=== PATIENT | female | born 1945 | race Caucasian/White ===

== ENCOUNTER 2019-07-02 07:39 | Outpatient (CLI) | payer MEDICARE, OTHER, SELFPAY ==
--- NOTE | ~2019-07-02 | DEXA_ITS ---
Bone Density Report Name: Blake Hawkins Age: 73 Sex: Female Ethnicity: White Date of : 1945 Indication: osteopenia; monitoring treatment; height loss; hysterectomy; Referring Provider: An Regan Study: Bone densitometry was performed. Exam Date: July 02, 2019 Accession number: [id number] Bone Density: Region BMD T-score Z-score Classification AP Spine (L1-L4) 0.773 -2.5 -0.1 Osteoporosis Femoral Neck (Left) 0.680 -1.5 0.5 Osteopenia Total Hip (Left) 0.802 -1.1 0.6 Osteopenia Total Hip Bilateral Avg 0.804 -1.1 0.7 Osteopenia Femoral Neck (Right) 0.668 -1.6 0.4 Osteopenia Total Hip (Right) 0.806 -1.1 0.7 Osteopenia World Health Organization criteria for BMD impression classify patients as: Normal (T-score at or above -1.0), Osteopenia (T-score between -1.0 and -2.5), or Osteoporosis (T-score at or below -2.5). 10-year Fracture Risk: FRAX not reported because: Some T-score for Spine Total or Hip Total or Femoral Neck at or below -2.5 Treated for osteoporosis Previous Exams: Region Exam Age BMD T-score BMD Change BMD Change Date g/cm2 vs Baseline vs Previous AP Spine(L1-L4) 07/02/2019 73 0.773 -2.5 -0.063(-7.5%)# -0.031(-3.8%)* 06/26/2017 71 0.803 -2.2 -0.032(-3.9%)# -0.033(-3.9%)* 06/20/2015 69 0.836 -1.9 0.000(0.0%)# -0.012(-1.4%)# 06/15/2013 67 0.848 -1.8 0.012(1.5%) 0.012(1.5%) 05/17/2011 65 0.836 -1.9 Total Hip(Left) 07/02/2019 73 0.802 -1.1 -0.066(-7.6%)# -0.011(-1.3%) 06/26/2017 71 0.813 -1.1 -0.055(-6.3%)# 0.038(4.9%)* 06/20/2015 69 0.775 -1.4 -0.093(-10.7%) -0.057(-6.8%)# 06/15/2013 67 0.832 -0.9 -0.036(-4.2%)* -0.036(-4.2%)* 05/17/2011 65 0.868 -0.6 Total Hip(Right) 07/02/2019 73 0.806 -1.1 -0.067(-7.6%)# 0.005(0.6%) 06/26/2017 71 0.801 -1.2 -0.072(-8.2%)# 0.008(1.0%) 06/20/2015 69 0.793 -1.2 -0.080(-9.1%)# -0.029(-3.5%)# 06/15/2013 67 0.822 -1.0 -0.051(-5.9%)* -0.051(-5.9%)* 05/17/2011 65 0.873 -0.6 *Denotes significance at 95% confidence level, LSC for AP Spine = 0.022 g/cm2, LSC for Total Hip = 0.027 g/cm2 Clinical Information Provided by Patient: Is being treated for osteoporosis Has used the following medications: Fosamax (i.e. alendronate), Vitamin D Has the following medical conditions: Hysterectomy Patient maximum height was 63 Menopause Age: 30 Onset of menses at age 12 Number of children 1 Missed period for more than 6 months in a row
--- NOTE | ~2019-07-02 | MM_ITS ---
EXAMINATION: MM screening ambrose BI w gallo HISTORY: Screening mammogram TECHNIQUE: Craniocaudal and mediolateral oblique 3-D tomosynthesis images were obtained and synthetic 2-D images were generated. CAD analysis was submitted and interpreted. COMPARISON: 07/01/2018, 06/26/2017, 06/22/2016 bilateral digital screening mammogram examinations BREAST PARENCHYMAL COMPOSITION: There are scattered areas of fibroglandular density. FINDINGS: There are scattered bilateral benign calcifications. There is no evidence of suspicious mas s, calcification, or architectural distortion to suggest malignancy in either breast. There has been no suspicious interval change. IMPRESSION: 1. No mammographic evidence of malignancy. 2. Recommend routine screening mammography in one year. BI-RADS Category 2: Benign finding(s). Reviewed, dictated and finalized at location A. [employer]
== END 2019-07-02 07:40 | disposition home or self-care (01) ==
LOC: ANHIMG 07:45
PROVIDERS: PCP Family Medicine; Visit Provider Family Medicine
DX: Z12.31 Encounter for screening mammogram for malignant neoplasm of breast (principal); Z78.0 Asymptomatic menopausal state; M85.89 Other specified disorders of bone density and structure, multiple sites; M81.0 Age-related osteoporosis without current pathological fracture
CPT/HCPCS: 77063; 77067; 77080

== ENCOUNTER 2021-01-16 12:35 | Outpatient (CLI) | payer MEDICARE, OTHER, SELFPAY ==
--- NOTE | ~2021-01-16 | DEXA_ITS ---
Bone Density Report Name: Blake Hawkins Age: 75 Sex: Female Ethnicity: White Date of : 1945 Indication: postmenopausal osteoporosis; monitoring treatment; height loss; hysterectomy; Referring Provider: Trixie Lindsey Study: Bone densitometry was performed. Exam Date: January 16, 2021 Accession number: [id number] Bone Density: Region BMD T-score Z-score Classification AP Spine (L1-L4) 0.829 -2.0 0.5 Osteopenia Femoral Neck (Left) 0.648 -1.8 0.3 Osteopenia Total Hip (Left) 0.788 -1.3 0.6 Osteopenia Total Hip Bilateral Avg 0.784 -1.3 0.6 Osteopenia Femoral Neck (Right) 0.645 -1.8 0.3 Osteopenia Total Hip (Right) 0.779 -1.3 0.5 Osteopenia World Health Organization criteria for BMD impression classify patients as: Normal (T-score at or above -1.0), Osteopenia (T-score between -1.0 and -2.5), or Osteoporosis (T-score at or below -2.5). 10-year Fracture Risk: FRAX not reported because: Treated for osteoporosis Previous Exams: Region Exam Age BMD T-score BMD Change BMD Change Date g/cm2 vs Baseline vs Previous AP Spine(L1-L4) 01/16/2021 75 0.829 -2.0 -0.006(-0.8%)# 0.057(7.3%)* 07/02/2019 73 0.773 -2.5 -0.063(-7.5%)# -0.031(-3.8%)* 06/26/2017 71 0.803 -2.2 -0.032(-3.9%)# -0.033(-3.9%)* 06/20/2015 69 0.836 -1.9 0.000(0.0%)# -0.012(-1.4%)# 06/15/2013 67 0.848 -1.8 0.012(1.5%) 0.012(1.5%) 05/17/2011 65 0.836 -1.9 Total Hip(Left) 01/16/2021 75 0.788 -1.3 -0.081(-9.3%)# -0.015(-1.9%) 07/02/2019 73 0.802 -1.1 -0.066(-7.6%)# -0.011(-1.3%) 06/26/2017 71 0.813 -1.1 -0.055(-6.3%)# 0.038(4.9%)* 06/20/2015 69 0.775 -1.4 -0.093(-10.7%) -0.057(-6.8%)# 06/15/2013 67 0.832 -0.9 -0.036(-4.2%)* -0.036(-4.2%)* 05/17/2011 65 0.868 -0.6 Total Hip(Right) 01/16/2021 75 0.779 -1.3 -0.094(-10.8%) -0.027(-3.4%)* 07/02/2019 73 0.806 -1.1 -0.067(-7.6%)# 0.005(0.6%) 06/26/2017 71 0.801 -1.2 -0.072(-8.2%)# 0.008(1.0%) 06/20/2015 69 0.793 -1.2 -0.080(-9.1%)# -0.029(-3.5%)# 06/15/2013 67 0.822 -1.0 -0.051(-5.9%)* -0.051(-5.9%)* 05/17/2011 65 0.873 -0.6 *Denotes significance at 95% confidence level, LSC for AP Spine = 0.022 g/cm2, LSC for Total Hip = 0.027 g/cm2 Clinical Information Provided by Patient: Is being treated for osteoporosis Has used the following medications: Fosamax (i.e. alendronate), Calcium Has the following medical conditions: Hysterectomy Patient maximum height was 64 Menopause Age: 30
== END 2021-01-16 12:36 | disposition home or self-care (01) ==
PROVIDERS: PCP Physician Assistant; Visit Provider Internal Medicine Endocrinology, Diabetes & Metabolism
DX: M81.0 Age-related osteoporosis without current pathological fracture (principal); M85.89 Other specified disorders of bone density and structure, multiple sites
CPT/HCPCS: 77080

== ENCOUNTER 2022-01-30 10:08 | Observation (INO) | payer MEDICARE, OTHER, SELFPAY ==
[2022-01-30] VITALS (9 sets, daily range): BP systolic 114–151; BP diastolic 53–93; PULSE 72–101; RESP 12–18; TEMP 36.4–37.1; O2SAT 95–100; BMI 24.0
--- NOTE | ~2022-01-30 | US_ITS ---
EXAMINATION: US carotid duplex BI DATE: 01/31/2022 08:48 INDICATION: Syncopal episode TECHNIQUE: Grayscale, color Doppler, and pulsed Doppler images of the cervical carotid arteries were obtained. The degree of vessel stenosis is placed in one of the following categories: normal, <50%, 5 0-69%, >=70% but less than near-occlusion, near-occlusion, or total occlusion. Note that percent sten osis relative to normal distal artery lumen diameter is indirectly measured from velocity measurement s as described by Daniel, et al. Radiology 2003; 229:340-346. COMPARISON: None. FINDINGS: RIGHT: The right common carotid artery (CCA) peak systolic velocity (PSV) is 82 cm/s. The right internal car otid artery (ICA) PSV is 68 cm/s. The right ICA end-diastolic velocity (EDV) is 16 cm/s. The right IC A/CCA PSV ratio is 0.8. Grayscale and color Doppler images yield an estimate of <50% diameter reducti on from plaque in the ICA. The external carotid artery (ECA) PSV is 76 cm/s. There is antegrade flow in the right vertebral artery. LEFT: The left CCA PSV is 83 cm/s. The left ICA PSV is 67 cm/s. The left ICA EDV is 17 cm/s. The left ICA/C CA PSV ratio is 0.8. Grayscale and color Doppler images yield an estimate of <50% diameter reduction from plaque in the ICA. The ECA PSV is 63 cm/s. There is antegrade flow in the left vertebral artery. IMPRESSION: 1. <50% stenosis in the right internal carotid artery. 2. <50% stenosis in the left internal carotid artery. Reviewed, dictated and finalized at location A.
--- NOTE | ~2022-01-30 | CT_ITS ---
EXAMINATION: CT brain wo con DATE: 01/30/2022 13:21 INDICATION: Syncope. Head injury. TECHNIQUE: Computed tomography (CT) of the head was performed without intravenous contrast. The mA wa s adjusted according to patient size. Iterative reconstruction technique was employed. The dose-lengt h product was 681.00 mGy-cm. COMPARISON: None FINDINGS: There is no intracranial hemorrhage, acute infarction, or abnormal intracranial mass lesion . The ventricles are normal in size. The orbits are normal. There is mild mucosal thickening in the p aranasal sinuses. There is a small left mastoid effusion. IMPRESSION: 1. Normal brain. Reviewed, dictated and finalized at location A. IMPRESSION: 1. Normal brain.
--- NOTE | ~2022-01-30 | XR_ITS ---
EXAMINATION: XR chest 2V DATE: 01/30/2022 12:59 INDICATION: Multiple syncopal episodes over the past 3 days TECHNIQUE: frontal and lateral views of the chest were obtained. COMPARISON: None FINDINGS: The lungs are clear with no focal airspace opacities, pulmonary edema, pleural effusion or pneumothor ax. Heart size is normal. Moderate thoracic kyphosis with moderate spondylosis. IMPRESSION: 1. No acute cardiopulmonary disease. Reviewed, dictated and finalized at location A.
--- NOTE | 2022-01-30 10:15 | ECG_ITS ---
Measurements Intervals [place] Rate: 77 P: 22 OH: 156 QRS: -18 QRSD: 86 T: 16 QT: 348 QTc: 394 Interpretive Statements SINUS RHYTHM WITH SINUS ARRHYTHMIA BORDERLINE R WAVE PROGRESSION, ANTERIOR LEADS INFERIOR INFARCT, AGE INDETERMINATE ABNORMAL ECG NO PREVIOUS ECG AVAILABLE FOR COMPARISON Electronically Signed On 01-30-2022 12:06:03 CDT by Jesse Wooten D.O.
[2022-01-30 10:33] LABS: Basophils Percent Auto 0.3 % (0.2-1.2); Eosinophils Absolute Auto 0.1 K/mm3 (0-0.3); Eosinophils Percent Auto 0.7 % (0-4.4); Hematocrit 38.3 % (37.0-47.0); Hemoglobin 12.7 g/dL (12.0-15.0); Immature Granulocyte Absolute 0.03 K/mm3 (0.00-0.031); Immature Granulocyte Percent A 0.4 % (0-0.5); Lymphocytes Absolute Auto 1.45 K/mm3 (0.9-3.2); Lymphocytes Percent Auto 20.5 % (18.3-44.2); Mean Corpuscular HGB Conc 33.2 g/dl (32-36); Mean Corpuscular Hemoglobin 33.2 pg (26-34); Mean Platelet Volume 9.7 fl (7.4-10.4); Monocytes Absolute Auto 0.4 K/mm3 (0.1-0.6); Monocytes Percent Auto 5.7 % (2.6-8.5); Neutrophils Absolute Auto 5.1 K/mm3 (1.3-6.7); Neutrophils Percent Auto 72.4 % (45.5-73.1); Platelet Count Result 147 k/mm3 (150-375); Red Blood Count 3.83 M/mm3 (4.2-5.4); Red Cell Distribution Width 11.9 % (11.5-14.5); White Blood Count 7.1 K/mm3 (4.5-10.0)
[2022-01-30 10:40] LABS: Alanine Aminotransferase 19 U/L (6-35); Albumin Level 4.5 g/dL (3.5-5.1); Alkaline Phosphatase 44 U/L (38-126); Anion Gap 15 mmol/L (8-16); Aspartate Amino Transferase 25 U/L (14-36); Bilirubin,Total 0.6 mg/dL (0.2-1.3); Blood Urea Nitrogen 19 mg/dL (7-17); Calcium 9.4 mg/dL (8.4-10.2); Carbon Dioxide 25 mmol/L (22-30); Chloride 96 mmol/L (98-107); Estimated CRCL calculation 38 ml/min; Estimated Glomerular Filt Rate > 60; Glucose 251 mg/dL (65-110); Potassium 3.6 mmol/L (3.4-5.0); Sodium 136 mmol/L (137-145)
--- NOTE | 2022-01-30 12:06 | ED.SYNCOPE ---
HPI - Syncope General Chief Complaint: Syncope Stated Complaint: dizziness Time Seen by Provider: 01/30/22 12:03 Source: patient and family Mode of arrival: ambulatory Limitations: no limitations History of Present Illness HPI narrative: Patient is a 76-year-old female with a history of hypertension, diabetes, presenting to the emergency department for evaluation of recurrent syncopal events. Patient had a first syncopal event on Saturday while she was eating dinner and lost consciousness while sitting down. No urinary incontinence or seizure-like activity. Patient was mildly confused at first when she awakened but no prolonged confused state. No focal deficits noted by who witnessed the event. Patient then had 2 syncopal events on Saturday, 1 while she was standing near a washing machine, the other while she was standing near a dresser and the caught her and was able to keep her upright and keep her from hitting her head. Again events were similar to Sundays with brief loss of consciousness without urinary incontinence or tonic-clonic activity. Today, patient had 2 syncopal events 1 again at breakfast and patient's wanted to have her evaluated. She currently feels fine. She denies prodromal symptoms such as headache, chest pain, lightheadedness, dizziness, palpitations prior to the event. She denies focal weakness or numbness. She denies pain of any sort. She denies cardiac history, recent illness or medication changes. Patient denies coagulopathy history, recent long car or air travel or recent known history of COVID. She denies unilateral leg swelling, calf pain or redness. Related Data Home Medications Medication Instructions Recorded Confirmed multivit with 1 tablet PO DAILY 05/21/19 11/13/21 [id number]-lutein 8 mg iron-400 mcg-300 mcg tablet (Ultimate Women's Complete 50+) biotin 10,000 mcg capsule mcg PO 10/20/19 11/13/21 cinnamon bark 500 mg capsule 1,000 mg PO DAILY 10/20/19 11/13/21 cholecalciferol (vitamin D3) 25 25 mcg PO DAILY 04/21/20 11/13/21 mcg (1,000 unit) capsule potassium gluconate 595 mg (99 mg) 595 mg PO DAILY 05/25/20 11/13/21 tablet omega 3,6,9 combination no.7 92 mg mg PO 11/13/21 11/13/21 (43 mg-22 [id number]) chew tablet Allergies Allergy/AdvReac Type Severity Reaction Status Date / Time codeine Allergy Severe Vomiting Verified 11/13/21 10:23 Rsjaspu-WFQ-VqS Reductase AdvReac Mild Muscle Pain Verified 11/13/21 10:23 Inhibitor [Hkixunk-Cgy-Zqm Reductase Inhibitor] Review of Systems Review of Systems: CONSTITUTIONAL: Denies fever, chills, or sweats. EYES: Denies visual changes, redness, or discharge. ENT: Denies rhinorrhea, congestion, sore throat, or otalgia. CARDIOVASCULAR: Denies chest pain, palpitations, or edema. RESPIRATORY: Denies cough or dyspnea. GASTROINTESTINAL: Denies abdominal pain, nausea, vomiting, or diarrhea. GENITOURINARY: Denies dysuria or hematuria. SKIN: Denies rash or itching. MUSCULOSKELETAL: Denies back pain, joint pain, or myalgia. NEUROLOGIC: Denies headache, numbness, or weakness. [facility] Past Medical History Medical History Back pain Hyperlipidemia LDL goal <100 Osteoarthritis Osteopenia after menopause Type 2 diabetes mellitus Surgical History Surgical History History of hysterectomy History of tonsillectomy and adenoidectomy [place] teeth removed Family History Family History Father Diabetes mellitus Hypertension Family history of cardiovascular disease Mother Family history of Alzheimer's disease Other Osteoporosis Social History Social History Smoking status: Never smoker Second hand tobacco smoke exposure: No Alcohol intake: never Substanc
[2022-01-30 12:52] LABS: Troponin I < 0.012 ng/mL (0.000-0.034)
[2022-01-30 12:56] LABS: Appearance Urine Clear (Clear); Bilirubin Urine Negative (Negative); Blood Urine Negative (Negative); Color Urine Yellow (Yellow); Glucose Urine UA Negative (Negative); Ketones Urine Negative (Negative); Leukocyte Esterase Ur 2+ LEU/UL (Negative); Nitrate Urine Negative (Negative); Protein Urine Negative (Negative); Urobilinogen Urine 0.2 mg/dL (<2.0); pH Urine 5.5 (5.0-9.0)
[2022-01-30 13:08] LABS: Mucus Urine Rare /lpf; RBC Urine 0-2 /hpf (0-2); Squamous Epithelial Cell Urine Occasional /hpf (Few)
[2022-01-30 13:09] LABS: Add Urine Microscopic? YES
[2022-01-30 13:34] LABS: SARS-CoV-2 RNA PCR Negative
--- NOTE | 2022-01-30 15:41 | ADMGEN ---
This patient, Blake Hawkins, was admitted to Medical Room 258-01. Patient/family oriented to hospital policies and general routines including ID bracelet, bed and alarms, visiting hours, pain management, procedures, bathroom and other care routines, personal items, smoking policy, room service/diet, and visiting hours. Information on how to activate the Rapid Response Team has been discussed. Patient/Family are encouraged to report perceived risks to care and to ask questions if they do not understand what they are told or what they should do.
--- NOTE | 2022-01-30 19:23 | PM.IMHP ---
H&P: HPI History of Present Illness Date/Time: 01/30/22 19:23 Chief Complaint: Syncopal episode Narrative: This is a 76-year-old female patient who has a history of hypertension and diabetes. The patient came to the emergency room to be evaluated for reoccurring syncopal events. The patient had her initial syncopal event on Saturday. She was sitting up eating dinner lost consciousness while sitting in the chair. She had no urinary incontinence or seizure-like activity. The patient was mildly confused at and when she regained consciousness she had no prolonged confusion state. She was only out for matter of seconds. The patient stated that she had 2 syncopal events on Saturday 1 while standing near a washing machine and the other 1 while she was standing near dresser. Her caught her both times and kept her up right so that she would not hit her head. She denies any dizziness fever chills no chest pain no palpitation. She has had no prior history of having any syncopal episodes prior to Saturday. She has had no recent travel or any recent history of COVID. She denies any swelling in her legs. Head CT was read as a normal brain. It chest x-ray was read as no acute cardiopulmonary disease. EKG was read as sinus rhythm with sinus arrhythmia. Sodium was only slightly low at 136. She is negative for COVID. Glucose 251 patient is being admitted to observation status on the date of service of 01/30/2022. Review of Systems Review of Systems: See HPI All systems reviewed & are unremarkable except as noted in HPI and below Constitutional: Constitutional: Reports as per HPI and Reports no additional constitutional complaints Eyes: Eyes: Reports as per HPI and Reports no additional eye complaints ENT: Reports system reviewed and no additional complaints, except as documented and Reports Normal hearing present Cardiovascular: Cardiovascular: Reports no additional cardiovascular complaints Respiratory: Respiratory: Reports no additional respiratory complaints and Reports no additional respiratory complaints Gastrointestinal: Gastrointestinal: Reports as per HPI and Reports no additional gastrointestinal complaints Musculoskeletal: Musculoskeletal: Reports no additional musculoskeletal complaints Integumentary/Breasts: Skin/Breast: Reports system reviewed and no additional complaints, except as docu and Reports as per HPI Neurologic: Reports system reviewed and no additional complaints, except as documented, Reports as per HPI and Reports Normal hearing present Psychiatric: Psychiatric: Reports no additional psychiatric complaints and Reports as per HPI Endocrine: Endocrine: Reports no additional endocrine complaints Hematologic/Lymphatic: Hematologic/Lymphatic: Reports no additional hematologic/lymphatic complaints Allergic/Immunologic: Allergic/Immunologic: Reports no additional allergic/immunologic complaints [facility] Past Medical History Medical History Back pain Hyperlipidemia LDL goal <100 Osteoarthritis Osteopenia after menopause Type 2 diabetes mellitus Surgical History Surgical History History of hysterectomy History of tonsillectomy and adenoidectomy [place] teeth removed Family History Family History Father Diabetes mellitus Hypertension Family history of cardiovascular disease Mother Family history of Alzheimer's disease Other Osteoporosis Social History Social History (Updated 01/30/22 @ 19:42 by Dania Cleveland NP) Social History: The patient is and lives with her of 55 years. She has 1 biological child and she has 1 adopted. He is retired from [employer] which she had her 1st child. She is lifelong nonsmoker. She does not use any alcohol marijuana or illicit drugs. Her is the durable Joota
[2022-01-30] MEDS: EZETIMIBE 10 MG TABLET PO (20:43)
[2022-01-30 20:53] LABS: Glucose Point of Care 175 mg/dl (65-105)
[2022-01-31] VITALS (13 sets, daily range): BP systolic 108–127; BP diastolic 47–65; PULSE 70–93; RESP 16–20; TEMP 36.7–37.3; O2SAT 98–99
--- NOTE | 2022-01-31 | ECHO_ITS ---
Patient Info Name: Blake Hawkins Age: 76 years : 1945 Gender: Female Ht: 63 in Wt: 135 lbs BSA: 1.66 m2 HR: 84 bpm BP: 160 / 107 mmHg Heart Rhythm: Sinus Rhythm Exam Date: 01/31/2022 2:06 PM Exam Location: [facility] Patient Status: Outpatient Admit Date: 01/30/2022 Staff Ordering Physician: Dania Cleveland NP C D Area Supervisor: Marco A Beck RDCS, RT Attending Provider: Michaela Aviles PA-C Referring Physician: Megha MACIAS; Exam Type: CA echo doppler color flow Study Info Indications R55 - Syncope and collapse Complete two-dimensional, color flow and Doppler transthoracic echocardiogram is performed. Strain analysis performed. Summary 1. Complete two-dimensional, color flow and Doppler transthoracic echocardiogram is performed. 2. Left ventricular chamber dimension is normal. 3. Left ventricular systolic function is normal, estimated at >70%. 4. There is mildly increased left ventricular wall thickness. 5. The left ventricular diastolic function is grade I diastolic dysfunction. 6. Global longitudinal strain is normal at -22 %. 7. There is no mitral valve regurgitation. Left Ventricle Left ventricular chamber dimension is normal. Left ventricular systolic function is normal, estimated at >70%. There is mildly increased left ventricular wall thickness. The left ventricular diastolic function is grade I diastolic dysfunction. Global longitudinal strain is normal at -22 %. Right Ventricle Right ventricular chamber dimension is normal. Right ventricular systolic function is normal. Left Atria Left atrial chamber dimension is normal. Right Atria Right atrial chamber dimension is normal. Aortic Valve The aortic valve is trileaflet. There is no aortic valve stenosis. There is no aortic valve regurgitation. Pulmonic Valve The pulmonic valve is not well visualized. There is trace pulmonic regurgitation. Mitral Valve The mitral valve has normal leaflets. There is no mitral valve regurgitation. Tricuspid Valve The tricuspid valve leaflets are normal. There is trace tricuspid valve regurgitation. Unable to estimate PA systolic pressure due to poor spectral resolution of tricuspid regurgitant jet velocity. Pericardium/Pleural The pericardium appears epicardial fat pad. There is no pericardial effusion. Inferior Vena Cava Normal inferior vena cava with >50% collapse upon inspiration consistent with normal right atrial pressure, 5 mmHg. Aorta The aortic root size at the sinus of Valsalva is normal. Left Ventricular Outflow Tract Name Value Normal LVOT 2D LVOT Diameter 2.0 cm LVOT Doppler LVOT Peak Gradient 4 mmHg LVOT Mean Gradient 2 mmHg LVOT VTI 21 cm LVOT VTI/AV VTI Ratio 0.8 LVOT Stroke Volume 64 ml LVOT CO 5.5 l/min LVOT CI 3.3 l/min/m2 Mitral Valve Name
[2022-01-31 06:04] LABS: Hemoglobin A1C 6.2 % (<5.7)
[2022-01-31 06:06] LABS: Alanine Aminotransferase 18 U/L (6-35); Albumin Level 4.1 g/dL (3.5-5.1); Alkaline Phosphatase 47 U/L (38-126); Anion Gap 11 mmol/L (8-16); Aspartate Amino Transferase 26 U/L (14-36); Bilirubin,Total 0.6 mg/dL (0.2-1.3); Blood Urea Nitrogen 20 mg/dL (7-17); Calcium 9.8 mg/dL (8.4-10.2); Carbon Dioxide 27 mmol/L (22-30); Chloride 103 mmol/L (98-107); Creatine Kinase 96 U/L (30-135); Estimated CRCL calculation 42 ml/min; Estimated Glomerular Filt Rate > 60; Glucose 124 mg/dL (65-110); Potassium 3.4 mmol/L (3.4-5.0); Sodium 141 mmol/L (137-145)
[2022-01-31 07:54] LABS: Glucose Point of Care 147 mg/dl (65-105)
[2022-01-31] MEDS: THERAPEUTIC MULTIVITAMINS/MINERALS TAB (*BKC) 1 TABLET PO (09:04)
[2022-01-31] MEDS: CHOLECALCIFEROL 1,000 UNITS TABLET 1000 UNITS PO (09:04)
[2022-01-31] MEDS: lisinopriL 20 MG TABLET 40 MG PO (09:04)
[2022-01-31] MEDS: hydroCHLOROthiazide 25 MG TABLET PO (09:04)
--- NOTE | 2022-01-31 11:32 | PM.CNCAR ---
Assessment and Plan Assessment and plan (1) Recurrent syncope: Code(s): R55 - Syncope and collapse Status: Acute Assessment and Plan: Highly concerning recurrent unexplained syncope occurring in the seated and standing positions without prodrome very concerning for bradyarrhythmia and/or pause. While her episode seated while eating very suspicion for deglutition syncope is not universal and is not associated with eating particular food as they can recall and occurs in the seated and standing position. Thirty day security monitor discharge will be required and if recurrent episode associated with tachy bradyarrhythmia recommendations follow as appropriate. We did discuss likelihood that bradyarrhythmia contributing but has yet to be documented in this regard. If 30 day monitor is unrevealing without recurrent event implantable loop recorder will be advised. They verbalized understanding and agreed with plan of care. No clear identifiable reversible causes thus far. Her UA revealed 2+ leukocyte esterase but otherwise fairly bland. She is asymptomatic and so therefore unlikely contributing. She has no electrolyte or other significant laboratory abnormalities as a contribution. Obtain 2D echocardiogram to assess for LV function, valve pathology pulmonary pressures with recommendation to follow as appropriate. Avoid AV madelyn blocking agents. Avoid dehydration, rise slowly from seated position. The patient does not drive and I emphasized that she should not do so in any event at this time or engage in specific activities which may result in injury to herself or others. All questions answered to their satisfaction. (2) Primary hypertension: Code(s): I10 - Essential (primary) hypertension Status: Acute Assessment and Plan: Stable, controlled no evidence for orthostatic hypotension thus far. Clinically she is not dehydrated nor provides a history highly suggestive this is contributing factor. Continue current medical therapy although I would discontinue the hydrochlorothiazide component continue lisinopril alone. (3) Type 2 diabetes mellitus: Code(s): E11.9 - Type 2 diabetes mellitus without complications Status: Acute Assessment and Plan: there is no documentation of associated hypoglycemia and in fact blood sugars been rather high association with least 1 or 2 of these episodes. (4) Abnormal ECG: Code(s): R94.31 - Abnormal electrocardiogram [ECG] [EKG] Status: Acute Assessment and Plan: ECG consistent with possible inferior infarction age indeterminate. Patient not relating any anginal symptoms at any point. She has risk factors for CAD due to her age, hypertension diabetes mellitus. Need to exclude bradyarrhythmia prior to to consideration for ischemic evaluation although I do not feel this is warranted at this time. (5) Mixed diabetic hyperlipidemia associated with type 2 diabetes mellitus: Code(s): E11.69 - Type 2 diabetes mellitus with other specified complication; E78.2 - Mixed hyperlipidemia Status: Acute Assessment and Plan: Per primary service. (6) Hypertension associated with type 2 diabetes mellitus: Code(s): E11.59 - Type 2 diabetes mellitus with other circulatory complications; I15.2 - Hypertension secondary to endocrine disorders Status: Acute Assessment and Plan: Per primary service. History of Present Illness History of Present Illness Consult date/time: date of service:01/31/22 11:32 Cardiology consultation at the request of Dania Cleveland of the [facility] service for opinion regarding recurrent syncope. Requesting physician: Dania Cleveland NP Consult reason: Other (recurrent syncope) Reason For Visit: Recurrent Syncope Narrative: Patient is a very pleasant 76-year-old female with a past medical history significant for type 2 diabetes mellitus, hypertension who presents with recurrent s
--- NOTE | 2022-01-31 11:38 | WPDNEURCNPN ---
Assessment and Plan Assessment and plan (1) Recurrent syncope: Code(s): R55 - Syncope and collapse Status: Acute Plan considering recurrent symptomatology, even though could be orthostatic because most of the episodes happened when she was sitting or standing a further evaluation is necessary to rule out the possibility of seizure possibility of the cardiac abnormalities as have been orders Consult date: 01/31/22 Time Seen: 10:00 HPI: Blake Hawkins is a 76 year old female admitted to the hospital through the emergency room for the complaints of dizziness in addition to the ongoing history of 1. Hypertension 2. Diabetes mellitus as per the information available patient was brought to the emergency room for the complaints of recurrent syncopal episodes the 1st episode was on Saturday while she was eating dinner loss consciousness without any urinary incontinence or seizure-like activity but she was mildly confused when she was awakened. No focal deficits were noted by the who witnessed the event patient has had 2 syncopal episodes on Saturday 1 when she was standing near machine the other when she was standing near a dresser and caught her and was able to keep her upright and keep her from hitting her head again events were similar to Sundays with brief loss of consciousness without incontinence of bowel or bladder and without history of tonic clonic activity at the time of admission to the ER she was definitely fine she gave no history of any other associated symptoms such as headache or weakness of 1 side or other side or numbness of 1 side or other side. Her medication at home included the general supplements and she is reportedly allergic to statins she does have ongoing history of osteoarthritis and osteopenia with back pain is never alcohol intake could never a smoker and initial examination in the emergency room was normal with evaluation revealing normal vital signs patient was admitted to the hospital with syncopal episode her routine CBC and routine labs were normal except blood sugar of 251 and sodium of 136, with negative chest x-ray and negative CT scan of the head without any bleed, her Doppler study of the carotid is normal Review of Systems Review of Systems: All systems reviewed & are unremarkable except as noted in HPI and below PMFSH Past Medical History Medical History Back pain Hyperlipidemia LDL goal <100 Osteoarthritis Osteopenia after menopause Type 2 diabetes mellitus Surgical History Surgical History History of hysterectomy History of tonsillectomy and adenoidectomy [place] teeth removed Family History Family History Father Diabetes mellitus Hypertension Family history of cardiovascular disease Mother Family history of Alzheimer's disease Other Osteoporosis Social History Social History Social History: The patient is and lives with her of 55 years. She has 1 biological child and she has 1 adopted. He is retired from [employer] which she had her 1st child. She is lifelong nonsmoker. She does not use any alcohol marijuana or illicit drugs. Her is the durable power energy attorney for healthcare. Code status full code Smoking status: Never smoker Second hand tobacco smoke exposure: No Alcohol intake: never Substance use: never Substance use type: does not use Additional living arrangements comments: ( Michael ) Additional occupation/education comments: retired Gender identity (if verbalized by the patient): Female Spiritual care concerns: No Meds Home Medications and Allergies Home Medications Medication Instructions Recorded Confirmed Type multivit with 1 tablet PO D
[2022-01-31 12:46] LABS: Glucose Point of Care 141 mg/dl (65-105)
--- NOTE | 2022-01-31 15:24 | PM.IMPN ---
Progress Note: A&P Assessment and Plan (1) Syncope and collapse: Code(s): R55 - Syncope and collapse Status: Acute Assessment and Plan: patient with 5 episodes of recent syncope with no prodromal symptoms appreciate cardiology consultation appreciate neurology consultation orthostatics negative thus far. Continue to monitor Q shift head CT with no acute findings carotid Doppler with <50% stenosis of bilateral internal carotid arteries EEG pending echocardiogram pending continue to monitor on telemetry (2) Primary hypertension: Code(s): I10 - Essential (primary) hypertension Status: Acute Assessment and Plan: blood pressures reviewed and have been reasonably controlled. Last BP 119/52 continue lisinopril-HCTZ monitor BP trends (3) Type 2 diabetes mellitus: Code(s): E11.9 - Type 2 diabetes mellitus without complications Status: Acute Assessment and Plan: A1c is 6.2 continue Accu-Cheks, sliding scale insulin, hypoglycemic protocol hold home metformin monitor glucose trends and adjust insulin regimen as needed Subjective Date/time seen: 01/31/22 15:24 Interval history: date of service: 01/31/2022 Blake Hawkins is a pleasant 76-year-old female with a history of type 2 diabetes mellitus, osteoarthritis, hyperlipidemia who is seen in follow-up for recurrent syncope. Patient states these episodes come on without warning. They have occurred both while standing and while sitting. Her has been a witness to each of these episodes and states when it happens her face will turn white and afterwards she is clammy. The patient states she feels very well today, in her usual state of health. She does admit that this morning she had a brief episode of lightheadedness when she sat up quickly. Other than that, she denies dizziness, lightheadedness, weakness, fatigue, shortness breath chest pain, palpitations, nausea, vomiting. Endorses good appetite. Denies urinary symptoms. Denies diarrhea. Review of Systems Review of Systems: All systems reviewed & are unremarkable except as noted in HPI and below Exam Narrative: General: Well-nourished, well-appearing 76-year-old female, sitting up in bed, comfortable, NARD Neuro: awake, alert and oriented x4, speech clear, no focal neuro deficits noted HEENMT: normocephalic, atraumatic, EOMI, sclerae anicteric Respiratory: clear to auscultation bilaterally, nonlabored breathing Cardio: regular rate, regular rhythm with S1-S2 Abdomen: nondistended, normoactive bowel sounds, soft, nontender to palpation Extremities: no edema, erythema, or tenderness to palpation, DP pulses 2+ bilaterally Skin: no rashes or lesions, warm and dry Psych: appropriate mood and affect, judgment and insight intact Objective Data Vital Signs Vital Signs: Vital Signs - 24 hr 01/30/22 15:56 01/30/22 18:11 01/30/22 16:00 Temperature 97.5 F L Pulse Rate 72 80 Respiratory Rate 18 Blood Pressure 151/80 H Pulse Oximetry 100 Oxygen Delivery Room Air 01/30/22 19:55 01/30/22 20:16 01/30/22 20:14 Temperature 98.7 F 98.7 F 98.7 F Pulse Rate 82 82 79 Respiratory Rate 18 18 18 Blood Pressure 121/58 L 121/53 L 121/59 L Pulse Oximetry 95 95 99 Oxygen Delivery 01/30/22 20:14 01/30/22 20:00 01/30/22 20:00 Temperature 98.7 F Pulse Rate 84 101 H Respiratory Rate 18 Blood Pressure 121/55 L Pulse Oximetry 99 Oxygen Delivery Room Air 01/31/22 00:00 01/31/22 04:00 01/31/22 04:35 Temperature 98.0 F Pulse Rate 93 78 71 Respiratory Rate 18 Blood Pressure 111/60 Pulse Oximetry 98 Oxygen Delivery 01/31/22 08:00 01/31/22 09:04 01/31/22 09:56 Temperature Pulse Rate 70 Respiratory Rate Blood Pressure 117/58 L 121/47 L Pulse Oximetry Oxygen Delivery 01/31/22 09:59 01/31/22 10:04 01/31/22 08:00 Temperature Pulse Rate Respirator
[2022-01-31] MEDS: EZETIMIBE 10 MG TABLET PO (17:48)
[2022-01-31 17:58] LABS: Glucose Point of Care 169 mg/dl (65-105)
[2022-01-31 21:06] LABS: Glucose Point of Care 227 mg/dl (65-105)
[2022-02-01] VITALS (10 sets, daily range): BP systolic 99–119; BP diastolic 48–61; PULSE 69–102; RESP 21; TEMP 36.2–36.7; O2SAT 100
[2022-02-01 05:48] LABS: Hematocrit 42.1 % (37.0-47.0); Immature Platelet Fraction Pct 3.2 % (0.9-11.2); Mean Corpuscular HGB Conc 33.3 g/dl (32-36); Mean Corpuscular Hemoglobin 33.3 pg (26-34); Mean Corpuscular Volume 100.2 fl (80-100); Mean Platelet Volume 9.9 fl (7.4-10.4); Platelet Count Result 138 k/mm3 (150-375); White Blood Count 8.7 K/mm3 (4.5-10.0)
[2022-02-01 06:06] LABS: Anion Gap 15 mmol/L (8-16); Blood Urea Nitrogen 25 mg/dL (7-17); Calcium 9.4 mg/dL (8.4-10.2); Carbon Dioxide 27 mmol/L (22-30); Chloride 100 mmol/L (98-107); Estimated CRCL calculation 38 ml/min; Estimated Glomerular Filt Rate > 60; Glucose 130 mg/dL (65-110); Potassium 3.5 mmol/L (3.4-5.0); Sodium 142 mmol/L (137-145)
[2022-02-01] MEDS: THERAPEUTIC MULTIVITAMINS/MINERALS TAB (*BKC) 1 TABLET PO (08:03)
[2022-02-01] MEDS: lisinopriL 20 MG TABLET 40 MG PO (08:03)
[2022-02-01] MEDS: CHOLECALCIFEROL 1,000 UNITS TABLET 1000 UNITS PO (08:03)
[2022-02-01 08:12] LABS: Glucose Point of Care 139 mg/dl (65-105)
--- NOTE | 2022-02-01 09:49 | P.NEURO_ITS ---
Neurology EEG Report General Information Date of Study: 01/31/22 TEST EEG DIAGNOSIS syncopal episode CONDITION OF RECORDING awake drowsy and sleep EEG NUMBER [id number] CLINICAL HISTORY patient reports she has had several episodes of losing consciousness in the last 3 days. No warning signs before and feels fine afterwards. EEG DESCRIPTION basic resting occipital frequency consists of low to medium voltage 8 to 10 hertz per 2nd alpha admixed with low-voltage 15 to 18 hertz per 2nd beta. Low- voltage beta activity seen diffusely admixed with waxing and waning posterior alpha rhythm during drowsiness. Bilateral symmetrical sleep activity seen during brief periods of sleep. Non paroxysmal. Nonfocal. Nonlateralizing. IMPRESSION Normal record
--- NOTE | 2022-02-01 10:56 | PM.PNCARD ---
Progress Note: A&P Assessment and Plan (1) Recurrent syncope: Code(s): R55 - Syncope and collapse <RUT Beard - Last Filed: 02/01/22 11:35> Status: Acute <RUT Beard - Last Filed: 02/01/22 11:35> Assessment and Plan: Highly concerning recurrent unexplained syncope occurring in the seated and standing positions without prodrome very concerning for bradyarrhythmia and/or pause. No bradyarrhythmia and/or pauses noted on telemetry thus far. Thirty day pvc monitor at discharge Echo showed normal LV systolic function, grade I diastolic dysfunction. No valvular abnormalities. Avoid AV mdaelyn blocking agents. Avoid dehydration, rise slowly from seated position. OK for discharge today from a cardiac perspective <RUT Beard - Last Filed: 02/01/22 11:35> (2) Primary hypertension: Code(s): I10 - Essential (primary) hypertension <RUT Beard - Last Filed: 02/01/22 11:35> Status: Acute <RUT Beard - Last Filed: 02/01/22 11:35> Assessment and Plan: Stable, controlled no evidence for orthostatic hypotension thus far. Continue lisinopril <RUT Beard - Last Filed: 02/01/22 11:35> (3) Type 2 diabetes mellitus: Code(s): E11.9 - Type 2 diabetes mellitus without complications <RUT Beard - Last Filed: 02/01/22 11:35> Status: Acute <RUT Beard - Last Filed: 02/01/22 11:35> Assessment and Plan: Per primary service. <RUT Beard - Last Filed: 02/01/22 11:35> (4) Abnormal ECG: Code(s): R94.31 - Abnormal electrocardiogram [ECG] [EKG] <RUT Beard - Last Filed: 02/01/22 11:35> Status: Acute <RUT Beard - Last Filed: 02/01/22 11:35> Assessment and Plan: ECG consistent with possible inferior infarction age indeterminate. Patient not relating any anginal symptoms at any point. She has risk factors for CAD due to her age, hypertension diabetes mellitus. Can pursue ischemia workup as outpatient <RUT Beard - Last Filed: 02/01/22 11:35> (5) Mixed diabetic hyperlipidemia associated with type 2 diabetes mellitus: Code(s): E11.69 - Type 2 diabetes mellitus with other specified complication; E78.2 - Mixed hyperlipidemia <RUT Beard - Last Filed: 02/01/22 11:35> Status: Acute <RUT Beard - Last Filed: 02/01/22 11:35> Assessment and Plan: Per primary service. <RUT Beard - Last Filed: 02/01/22 11:35> (6) Hypertension associated with type 2 diabetes mellitus: Code(s): E11.59 - Type 2 diabetes mellitus with other circulatory complications; I15.2 - Hypertension secondary to endocrine disorders <RUT Beard - Last Filed: 02/01/22 11:35> Status: Acute <RUT Beard - Last Filed: 02/01/22 11:35> Assessment and Plan: Per primary service. <RUT Beard - Last Filed: 02/01/22 11:35> Assessment and Plan: Attending addendum: I agree with the above documentation and plan of care as outlined. <Baldemar Tran MD - Last Filed: 02/01/22 13:06> Subjective Date/time seen: 02/01/22 10:56 Cardiology follow up for syncope. <RUT Beard - Last Filed: 02/01/22 11:35> Interval history: She's feeling well this morning. No further syncope or presyncope. Sinus rhythm on telemetry with no bradycardia or pauses. <RUT Beard - Last Filed: 02/01/22 11:35> Review of Systems Review of Systems: All systems reviewed & are unremarkable except as noted in HPI and below <RUT Beard - Last Filed: 02/01/22 11:35> Constitutional: Constitutional: Reports as per HPI and Reports no additional constitutional complaints <RUT Beard - Last Filed: 02/01/22 11:35> Eyes: Eyes: Reports as per HPI and Reports no additional eye complaints <Latisha Cage A
[2022-02-01 12:29] LABS: Glucose Point of Care 143 mg/dl (65-105)
--- NOTE | 2022-02-01 12:44 | WPDNEUROPN ---
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 by the oxygen furnace operator and is being investigated for the possibility of Evan arrhythmia with to have 30 day telemetry, EEG is Job will be discharged with further cardiological investigations planned Objective Data Vital Signs Vital Signs: Vital Signs - 24 hr 01/31/22 14:20 01/31/22 16:00 01/31/22 19:32 Temperature 36.9 C Pulse Rate 85 88 Respiratory Rate 16 Blood Pressure 119/52 L Pulse Oximetry 99 Oxygen Delivery Room Air 01/31/22 20:00 01/31/22 22:33 02/01/22 00:00 Temperature 37.3 C Pulse Rate 90 85 75 Respiratory Rate 20 Blood Pressure 108/52 L Pulse Oximetry 98 Oxygen Delivery 02/01/22 04:00 02/01/22 06:00 02/01/22 06:05 Temperature 36.2 C L 36.3 C L Pulse Rate 69 69 76 Respiratory Rate 21 H 21 H Blood Pressure 119/48 L 117/51 L Pulse Oximetry 100 100 Oxygen Delivery 02/01/22 06:10 02/01/22 08:00 02/01/22 08:00 Temperature 36.7 C Pulse Rate 85 82 Respiratory Rate 21 H Blood Pressure 108/56 L Pulse Oximetry 100 Oxygen Delivery Room Air 02/01/22 10:15 02/01/22 10:19 02/01/22 10:23 Temperature Pulse Rate 84 85 102 H Respiratory Rate Blood Pressure 110/51 L 114/50 L 99/61 L Pulse Oximetry Oxygen Delivery 02/01/22 12:00 Temperature Pulse Rate 87 Respiratory Rate Blood Pressure Pulse Oximetry Oxygen Delivery Intake/Output Intake/Output: Intake & Output 01/29/22 01/30/22 01/31/22 02/01/22 23:59 23:59 23:59 23:59 Intake Total 400 710 750 Output Total 200 Balance 200 710 750 Meds/Results Medications: Active Medications Generic Name Dose Route Start Last Admin Trade Name Freq PRN Reason Stop Dose Admin Acetaminophen 650 mg 01/30/22 14:11 Acetaminophen 325 Mg Tablet PO Q4H PRN Mild Pain (1-3) or Fever Alendronate Sodium 70 mg 02/03/22 06:30 Alendronate Sodium 70 Mg Tablet PO Sa@0630 PAUL Dextrose 12.5 gm 01/30/22 19:48 Dextrose 50% 25 Gm/50 Ml Syringe IV PUSH PRN PRN Hypoglycemia Protocol Ezetimibe 10 mg 01/30/22 20:00 01/31/22 17:48 Ezetimibe 10 Mg Tablet PO 10 mg QPM PAUL Administration Glucagon 1 mg 01/30/22 19:48 Glucagon For Inj 1 Mg Vial IM PRN PRN Hypoglycemia Protocol Glucose 15 gm 01/30/22 19:48 Glucose Oral Gel 15 Gm Of Glucse In 37.5 Gm Tube PO PRN PRN Hypoglycemia Protocol Dextrose 1,000 mls @ 100 mls/hr 01/30/22 19:48 Dextrose 5% 1,000 Ml IVPB PRN PRN Hypoglycemia Protocol Insulin Aspart 2 - 5 units 01/31/22 08:00 02/01/22 12:21 Insulin Aspart (*Bkc) 100 Units/Ml SUB-Q Not Given TIDWM PAUL Protocol Lisinopril 40 mg 01/31/22 09:00 02/01/22 08:03 Lisinopril 20 Mg Tablet PO 40 mg DAILY PAUL Administration Multivitamins/Calcium 1 tablet 01/31/22 09:00 02/01/22 08:03 Therapeutic Multivitamins/Minerals Tab (*Bkc) PO 1 tablet DAILY PAUL Administration Ondansetron HCl 4 mg 01/30/22 14:11 Ondansetron Inj 4 Mg/2 Ml Vial IV PUSH Q4H PRN Nausea Perflutren Lipid Microsphere 0 ml 01/30/22 19:44 Perflutren Lipid Microspheres 1.5 Ml Vial Diluted To 10 Ml Total Volume IV PUSH 02/01/22 19:44 ONCE PRN adequate visualization Protocol Vitamin D 1,000 units 01/31/22 09:00 02/01/22 08:03 Cholecalciferol 1,000 Units Tablet PO 1,000 units DAILY PAUL Administration Radiology Results: ITS Impressions Chest X-Ray 01/30/22 13:03 IMPRESSION: 1. No acute cardiopulmonary disease. Head CT 01/30/22 13:21 IMPRESSION: 1. Normal brain. Carotid Doppler Study 01/31/22 08:56 IMPRESSION: 1. <50% stenosis in the right internal carotid artery. 2. <50% stenosis in the left internal carot
--- NOTE | 2022-02-01 13:00 | PM.DS ---
DS: Admitting Diagnosis Discharge Date 02/01/22 Admitting Diagnosis Recurrent syncope DS: Discharge Diagnosis Discharge Diagnosis (1) Recurrent syncope: Code(s): R55 - Syncope and collapse Status: Acute Assessment and Plan: patient with 5 episodes of recent syncope with no prodromal symptoms Seen in consultation by Cardiology and Neurology Orthostatic vital signs negative Head CT with no acute findings Carotid Doppler with <50% stenosis of bilateral internal carotid arteries EEG unremarkable Echocardiogram with normal EF, grade 1 diastolic dysfunction, no valvular disease Monitored on telemetry during admission. Discharge with 30 day compliance monitor. Will follow-up with cardiology as an outpatient to review Discussed importance of maintaining adequate hydration, discussed fall precautions, discussed need for rising slowly from seated position. (2) Primary hypertension: Code(s): I10 - Essential (primary) hypertension Status: Acute Assessment and Plan: Blood pressures reviewed during admission and were reasonably controlled on lower end of normal. Lisinopril-HCTZ discontinued Lisinopril resumed as single agent at reduced dose 20 mg daily. (3) Type 2 diabetes mellitus: Code(s): E11.9 - Type 2 diabetes mellitus without complications Status: Acute Assessment and Plan: A1c is 6.2. Blood sugars well controlled. Continue home metformin DS: Summary Hospital Course Hospital Course: Date of admission: 01/30/2022 Date of discharge: 02/01/2022 Blake Hawkins is a pleasant 76-year-old female with a history of type 2 diabetes mellitus, osteoarthritis, hyperlipidemia who presented to the emergency department on 01/30/2022 with complaints of recurrent syncopal episodes. Episodes occurred at various times, some while standing and some while sitting, 1 after eating a meal. On presentation to the ED, her vital signs were stable, she was afebrile, laboratory work unremarkable, troponin negative, CXR with no acute cardiopulmonary disease, and head CT with normal brain. She was admitted to the hospitalist service for further evaluation and management and was seen in consultation by Cardiology and Neurology. Please see above for further details. Workup was benign and she was arranged to have 30 day compliance monitor. Following this, she will follow-up with cardiology. Precautions discussed at length. Patient was feeling back to usual state of health and felt comfortable with plans for return home where she lives with her who can assist as needed. Discussed with both patient and family worrisome signs and symptoms for which to return and she was educated on her medication changes. She was discharged in hemodynamically stable condition on 02/01/2022. Time Spent with Patient Time attestation: Total time spent providing and/or coordinating discharge services: 38 minutes Time spent: Greater than 30 minutes Exam Narrative: General: Well-nourished, well-appearing 76-year-old female, sitting up in bed, comfortable, NARD Neuro: awake, alert and oriented x4, speech clear, no focal neuro deficits noted HEENMT: normocephalic, atraumatic, EOMI, sclerae anicteric Respiratory: clear to auscultation bilaterally, nonlabored breathing Cardio: regular rate, regular rhythm with S1-S2 Abdomen: nondistended, normoactive bowel sounds, soft, nontender to palpation Extremities: no edema, erythema, or tenderness to palpation, DP pulses 2+ bilaterally Skin: no rashes or lesions, warm and dry Psych: appropriate mood and affect, judgment and insight intact DS: Data Data Completed and Pending Labs on day of discharge: Labs from last 24 hours 02/01/22 12:00 POC Capillary Glucose 143 H Imaging Radiologist's impression: ITS Impressions Chest X-Ray 01/30/22 13:03 IMPRESSION: 1. No acute cardiopulmonary disease. Head CT 01/30/22 13:21 BETTE
== END 2022-02-01 14:34 | disposition home or self-care (01) ==
LOC: ANHED 13:10 → ANH2MED 15:08
PROVIDERS: Emergency Medicine; Nurse Practitioner; Admitting Provider Hospitalist; Emergency Provider Emergency Medicine; PCP Family Medicine; Visit Provider Physician Assistant
DX: R55 Syncope and collapse (principal); E11.59 Type 2 diabetes mellitus with other circulatory complications; I15.2 Hypertension secondary to endocrine disorders; E78.2 Mixed hyperlipidemia; M54.9 Dorsalgia, unspecified; R94.31 Abnormal electrocardiogram [ECG] [EKG]; I51.89 Other ill-defined heart diseases; M85.88 Other specified disorders of bone density and structure, other site; M19.90 Unspecified osteoarthritis, unspecified site; Z20.822 Contact with and (suspected) exposure to COVID-19; Z79.84 Long term (current) use of oral hypoglycemic drugs; Z79.899 Other long term (current) drug therapy; Z83.3 Family history of diabetes mellitus; Z84.89 Family history of other specified conditions; Z82.3 Family history of stroke; Z82.49 Family history of ischemic heart disease and other diseases of the circulatory system; Z82.62 Family history of osteoporosis
CPT/HCPCS: 36415; 70450; 71046; 80048; 80053; 81001; 82550; 82948; 83036; 83605; 83735; 84443; 84484; 85025; 85027; 85055; 87086; 87088; 93005; 93306; 93880; 95816; 99285; A9270; C9803; G0378; U0003; U0005

== ENCOUNTER 2022-04-06 09:41 | Outpatient (CLI) | payer MEDICARE, OTHER, SELFPAY ==
--- NOTE | ~2022-04-06 | DEXA_ITS ---
Bone Density Report Name: MIRTA CORMIER Age: 76 Sex: Female Ethnicity: White Date of : 1945 Indication: postmenopausal; screening for osteoporosis; height loss; hysterectomy; Referring Provider: RAULITO FRANCE Study: Bone densitometry was performed. Exam Date: April 06, 2022 Accession number: [id number] Bone Density: Region BMD T-score Z-score Classification AP Spine(L1-L4) 0.803 -2.2 0.3 Osteopenia Femoral Neck (Left) 0.674 -1.6 0.6 Osteopenia Total Hip (Left) 0.800 -1.2 0.8 Osteopenia Femoral Neck (Right) 0.642 -1.9 0.3 Osteopenia Total Hip (Right) 0.737 -1.7 0.2 Osteopenia Total Hip Mean 0.768 -1.5 0.5 Osteopenia World Health Organization criteria for BMD impression classify patients as: Normal (T-score at or above -1.0), Osteopenia (T-score between -1.0 and -2.5), or Osteoporosis (T-score at or below -2.5). 10-year Fracture Risk(1): Major Osteoporotic Fracture 14% Hip Fracture 3.6% Reported Risk Factors: [place] (), Neck BMD=0.642, BMI=25.1 (1) FRAX(R) Version 3.08. Fracture probability calculated for an untreated patient. Fracture probability may be lower if the patient has received treatment. Clinical Information Provided by Patient: Has used the following medications: Fosamax (i.e. alendronate), Calcium, Multivitamin Has the following medical conditions: Hysterectomy Patient maximum height was 64 Menopause Age: 30 No regular weight bearing exercise Onset of menses at age 12 Number of children 1 Impression: The patient has low bone mass, based on the Total Spine T-score. The patient has an estimated ten-year risk of hip fracture of 3.6% and an estimated ten-year risk of major fracture of 14%, based on the WHO FRAX algorithm. Discussion: BONE DENSITY IS LOW AT ONE OR MORE SKELETAL SITES. THE PATIENT'S BMD AND CLINICAL RISK FACTORS CONTRIBUTE TO THIS PATIENT'S INCREASED RISK OF FRACTURE. This patient's lowest T-score is low at one or more skeletal sites. It meets the World Health Organization's (WHO) criteria for ?low bone mass? (T-score between -1.0 and -2.5). The patient's 10-year risk of hip fracture as calculated by FRAX exceeds the threshold where pharmacological therapy is recommended by the National Osteoporosis Foundation (NOF). However, all treatment decisions require clinical judgment and consideration of individual patient factors, including patient preferences, comorbidities, previous drug use, risk factors not captured in the FRAX model (e.g., frailty, falls, vitamin D deficiency, increased bone turnover, interval significant decline in bone density) and possible under or overestimation of fracture risk by FRAX. The patient should follow a healthful lifestyle (good nutrition with adequate calcium and vitamin D, and appropriate weigh
== END 2022-04-06 09:42 | disposition home or self-care (01) ==
LOC: ANHIMG 09:43
PROVIDERS: PCP Family Medicine; Visit Provider Internal Medicine Endocrinology, Diabetes & Metabolism
DX: Z78.0 Asymptomatic menopausal state (principal); M85.89 Other specified disorders of bone density and structure, multiple sites
CPT/HCPCS: 77080

== ENCOUNTER 2022-04-23 00:10 | Day surgery (SDC) | payer MEDICARE, OTHER, SELFPAY ==
[2022-04-20 11:03] VITALS: BMI 24.0
[2022-04-23] VITALS (10 sets, daily range): BP systolic 113–130; BP diastolic 56–67; PULSE 68–87; RESP 12–17; TEMP 36.7; O2SAT 100; BMI 25.4
--- NOTE | 2022-04-23 09:37 | WPDHPUPDATE1 ---
History and Physical Update Update Date/Time: 04/23/22 09:37 History and Physical has been reviewed, including an updated exam of the patient. There are NO changes in the patient's condition. Risks, benefits, and alternatives have been discussed and questions answered. Patient agrees to proceed with procedure.
--- NOTE | 2022-04-23 09:37 | WPDMODSED ---
Moderate Sedation Note-Pt Data Patient Data Diagnosis: Recurrent unexplained syncope, atrial fibrillation Present Complaint: none History and physical update: Patient is a very pleasant 76-year-old female with past medical history significant for hypertension, type 2 diabetes mellitus, hypertension, and history of recurrent unexplained syncope and recently diagnosed paroxysmal atrial fibrillation. Patient wore 30 day shelter monitor which did not reveal high-grade AV block or pauses or syncopal episodes but did diagnosis transient atrial fibrillation. She was referred for implantable loop recorder for further clarification with regards etiology and exclusion of bradyarrhythmia as possible contribution to recurrent syncopal episodes and monitoring of atrial fibrillation. Impression: 1. Current unexplained syncope 2. Paroxysmal atrial fibrillation 3. Type 2 diabetes mellitus 4. Hypertension 5. Dementia Plan of care: Implantable loop recorder evaluation of recurrent unexplained syncope and monitoring of atrial fibrillation. All questions answered to patient and her 's satisfaction. Procedure to be performed/Plan: loop recorder implantation Allergies Allergy/AdvReac Type Severity Reaction Status Date / Time codeine Allergy Severe Vomiting Verified 04/23/22 09:18 Lnvtlxi-INT-SeI Reductase AdvReac Mild Muscle Pain Verified 04/23/22 09:18 Inhibitor [Ylfbhjg-Ulq-Uso Reductase Inhibitor] Home Medications Medication Instructions Recorded Confirmed Type multivit with 1 tablet PO DAILY 05/21/19 04/20/22 History agoonpoq-oarf-XY-lutein 8 mg iron-400 mcg-300 mcg tablet (Ultimate Women's Complete 50+) biotin 10,000 mcg capsule 10,000 mcg PO DAILY 10/20/19 04/20/22 History cinnamon bark 500 mg capsule 1,000 mg PO DAILY 10/20/19 04/20/22 History cholecalciferol (vitamin D3) 25 40 mcg PO DAILY 04/21/20 04/20/22 History mcg (1,000 unit) capsule potassium gluconate 595 mg (99 mg) 99 mg PO DAILY 05/25/20 04/20/22 History tablet blood-glucose meter (Accu-Chek #1 ea 05/26/20 04/20/22 Rx Guide Glucose Meter) lancets (Accu-Chek Softclix #100 ea 08/25/21 04/20/22 Rx Lancets) omega 3,6,9 combination no.7 92 mg 1,600 mg PO DAILY 11/13/21 04/20/22 History (43 mg-22 [id number]) chew tablet alendronate 70 mg tablet 70 mg PO WEEKLY 90 days #13 tabs 02/26/22 04/20/22 Rx blood sugar diagnostic (Accu-Chek #100 strips 03/09/22 04/20/22 Rx Guide test strips) ezetimibe 10 mg tablet 10 mg PO QPM #90 tabs 04/13/22 04/20/22 Rx metformin 500 mg tablet,extended 1,500 mg PO QPM #270 tabs 04/13/22 04/20/22 Rx release 24 hr lisinopril 10 mg tablet 5 mg PO DAILY 04/20/22 04/23/22 History Sedation/Anesthesia: No previous sedation/anesthesia problems (including family history). [facility] Past Medical History Medical History Back pain Hyperlipidemia LDL goal <100 Osteoarthritis Osteopenia after menopause Type 2 diabetes mellitus Surgical History Surgical History History of hysterectomy History of tonsillectomy and adenoidectomy [place] teeth removed Family History Family History Father Diabetes mellitus Hypertension Family history of cardiovascular disease Mother Family history of Alzheimer's disease Other Osteoporosis Social History Social History Social History: The patient is and lives with her of 55 years. She has 1 biological child and she has 1 adopted. He is retired from [employer] which she had her 1st child. She is lifelong nonsmoker. She does not use any alcohol marijuana or illicit drugs. Her is the durable power document review attorney for healthcare. Code status full code Smoking status: Never smoke
--- NOTE | 2022-04-23 10:33 | PM.OP ---
Procedure Note - Brief Procedure Note - Brief Date of procedure: 04/23/22 Pre-op diagnosis: Reccurent Syncope, A-Fib Recurrent unexplained syncope, atrial fibrillation Post-op diagnosis: Same Procedure performed: Brief History of Present Illness: Patient is a very pleasant 76-year-old female with a past medical history significant for type 2 diabetes mellitus, hypertension, dyslipidemia, dementia, and recent diagnosis of paroxysmal atrial fibrillation with recurrent unexplained syncope refer for loop recorder implantation. She wore 30 day property assessment monitor which did not reveal high-grade AV block or symptomatic bradycardia nor does she have syncopal episode. However, her reports after returning the monitor she had 2 episodes of syncope. Complications: None Description of procedure: After verbal and written informed consent was obtained from the patient risks, benefits, and alternatives explained in detail the patient agreed to proceed with the plan of care as outlined above. Patient was evaluated at bedside in the [facility] procedure room. Patient was placed the appropriate supine position. Left anterior chest wall was prepped and draped in the usual sterile fashion. Operators in appropriate sterile garb. The left 4th intercostal space was identified and marked. Utilizing approximately 28 cc of 1% subcutaneous lidocaine the left anterior chest wall was then locally anesthetized. After local anesthesia was achieved, 2 fingerbreadths left of the sternum at the 4th intercostal space was again identified and a 1 cm incision was made with the included skin punch tool. Following this with the included introducer, a tract was made subcutaneously at a 45 degree angle from the sternum. The introducer was then inverted 180 degrees and with the included plunger the Medtronic REVEAL LINQ II loop recorder was advanced subcutaneously into position easily and without complication. The plunger was then removed followed by the introducer. Manual pressure was held for least 5-10 min with excellent hemostasis. The device was then interrogated and revealed excellent fidelity and measured at 0.28 mV. The Medtronic REVEAL LINQ II SN [id number] was implanted without complication. The incision was then approximated and closed using Exofin skin adhesive The incision was then covered with a sterile dressing. Implants: Medtronic LINQ II implantable loop recorder Surgeon: Baldemar Tran MD Estimated blood loss (mL): 0 Complications: No immediate complications Condition: Stable Disposition: Same day Findings: Successful implantation of Medtronic Reveal LINQ II Follow up as an outpatient with one week wound check as scheduled.
== END 2022-04-23 11:32 | disposition home or self-care (01) ==
PROVIDERS: PCP Family Medicine; Visit Provider Internal Medicine Cardiovascular Disease
PROC: (CPT 33285; principal; 2022-04-23 10:00)
DX: R55 Syncope and collapse (principal); I48.0 Paroxysmal atrial fibrillation; I10 Essential (primary) hypertension; E78.5 Hyperlipidemia, unspecified; E11.9 Type 2 diabetes mellitus without complications; F03.90 Unspecified dementia, unspecified severity, without behavioral disturbance, psychotic disturbance, mood disturbance, and anxiety; Z79.84 Long term (current) use of oral hypoglycemic drugs
CPT/HCPCS: 33285; C1764

== ENCOUNTER 2022-06-28 02:24 | Day surgery (SDC) | payer MEDICARE, OTHER, SELFPAY ==
[2022-06-27 12:44] VITALS: BMI 24.0
[2022-06-28] VITALS (17 sets, daily range): BP systolic 126–138; BP diastolic 60–77; PULSE 18–94; RESP 18–85; TEMP 36.2–36.9; O2SAT 96–100; BMI 24.6
--- NOTE | ~2022-06-28 | XR_ITS ---
EXAMINATION: XR chest 1V portable INDICATION: Pacemaker insertion TECHNIQUE: Portable AP chest at 1523 hours COMPARISON: 01/30/2022 FINDINGS: A dual-lead cardiac pacemaker of the left chest wall ends with leads in expected locations. No pleural effusion or pneumothorax. The lungs are free of acute opacities. The heart size is normal . IMPRESSION: 1. Pacemaker insertion. No pneumothorax. Reviewed, dictated and finalized at location L. AL CARE SPECIALIST
--- NOTE | ~2022-06-28 | XR_ITS ---
Clinical Indication: Status post pacemaker placement PA and lateral views of the chest: Comparison: 06/28/2022 Findings: The lungs are clear, without evidence of focal consolidation or pleural effusion. Cardiome diastinal silhouette is stable, with pacemaker device in place. Bones and soft tissues are unremarkab le. Impression: Clear lungs. No pneumothorax. Pacemaker in place. Reviewed, dictated and finalized at location M. GENCY MEDICAL TECHNICIAN/DRIVER Impression: Clear lungs. No pneumothorax. Pacemaker in place.
--- NOTE | 2022-06-28 08:49 | PM.IMHP ---
H&P: HPI History of Present Illness Date/Time: 06/28/22 08:49 Chief Complaint: Intermittent complete heart block Narrative: Patient with recurrent syncope status post recorder implant. The loop recorder implant has revealed an episode of complete heart block lasting for 21 seconds associated with syncope. The patient is here for placement of a permanent dual-chamber pacemaker. She also has history of hypertension, diabetes and hyperlipidemia. Echo showed ejection fraction greater than 70%, mild LVH and diastolic dysfunction. EKG in January 2022 showed sinus rhythm with normal intervals, cannot rule out old inferior [place]. She is feeling well today, no fevers or infections, has been NPO. She has had no history of clavicular fracture. Review of Systems Review of Systems: No shortness of breath, chest pain, abdominal pain, fevers, swelling ,. Had episode of syncope last weekend associated with the above-mentioned episode. [facility] Past Medical History Medical History (Updated 06/28/22 @ 11:41 by Kelsie Ulrich MD) Back pain Hyperlipidemia LDL goal <100 Intermittent complete heart block Memory loss Osteoarthritis Osteopenia after menopause Type 2 diabetes mellitus Surgical History Surgical History History of hysterectomy History of tonsillectomy and adenoidectomy [place] teeth removed Family History Family History Father Diabetes mellitus Hypertension Family history of cardiovascular disease Mother Family history of Alzheimer's disease Other Osteoporosis Social History Social History Social History: The patient is and lives with her of 55 years. She has 1 biological child and she has 1 adopted. He is retired from [employer] which she had her 1st child. She is lifelong nonsmoker. She does not use any alcohol marijuana or illicit drugs. Her is the durable power city attorney for healthcare. Code status full code Smoking status: Never smoker Second hand tobacco smoke exposure: No Alcohol intake: never Substance use: never Substance use type: does not use Living arrangements: with family Additional living arrangements comments: ( Michael ) Occupation/Education: retired Additional occupation/education comments: retired Gender identity (if verbalized by the patient): Female Spiritual care concerns: No Meds Home Medications and Allergies Home Medications Medication Instructions Recorded Confirmed Type multivit with 1 tablet PO DAILY 05/21/19 06/27/22 History qhmtfbxr-dtyb-MP-lutein 8 mg iron-400 mcg-300 mcg tablet (Ultimate Women's Complete 50+) biotin 10,000 mcg capsule 10,000 mcg PO DAILY 10/20/19 06/27/22 History cinnamon bark 500 mg capsule 1,000 mg PO DAILY 10/20/19 06/27/22 History cholecalciferol (vitamin D3) 25 40 mcg PO DAILY 04/21/20 06/27/22 History mcg (1,000 unit) capsule potassium gluconate 595 mg (99 mg) 99 mg PO DAILY 05/25/20 06/27/22 History tablet blood-glucose meter (Accu-Chek #1 ea 05/26/20 04/20/22 Rx Guide Glucose Meter) lancets (Accu-Chek Softclix #100 ea 08/25/21 04/20/22 Rx Lancets) omega 3,6,9 combination no.7 92 mg 1,600 mg PO DAILY 11/13/21 06/27/22 History (43 mg-22 [id number]) chew tablet ezetimibe 10 mg tablet 10 mg PO QPM #90 tabs 04/13/22 06/27/22 Rx metformin 500 mg tablet,extended 1,500 mg PO QPM #270 tabs 04/13/22 06/28/22 Rx release 24 hr lisinopril 10 mg tablet 5 mg PO DAILY 04/20/22 06/27/22 History alendronate 70 mg tablet See Rx Instructions .Route 05/15/22 06/27/22 Rx .COMPLEX #12 tabs blood sugar diagnostic (Accu-Chek #100 strips 06/18/22 06/18/22 Rx Guide test strips) vit C 250 mg-vit E 90 mg-zinc 40 1 tablet PO DAILY 06/27/22 06/27/22 History mg-copper 1 [id number]
--- NOTE | 2022-06-28 09:00 | ECG_ITS ---
Measurements Intervals [place] Rate: 72 P: 11 CT: 126 QRS: -19 QRSD: 103 T: 5 QT: 361 QTc: 396 Interpretive Statements SINUS RHYTHM MODERATE VOLTAGE CRITERIA FOR LVH, CONSIDER NORMAL VARIANT [MEETS CRITERIA IN ONE OF: R(aVL), S(V1), R(V5), R(V5/V6)+S(V1)] OLD INFERIOR INFARCT COMPARED TO ECG 01/30/2022 10:21:48 NO SIGNIFICANT CHANGES Electronically Signed On 06-28-2022 15:40:33 PRIZER HAND by Golden Guadalupe M.D.
[2022-06-28 09:31] LABS: Basophils Percent Auto 0.3 % (0.2-1.2); Eosinophils Absolute Auto 0.1 K/mm3 (0-0.3); Eosinophils Percent Auto 0.5 % (0-4.4); Hematocrit 41.9 % (37.0-47.0); Hemoglobin 13.9 g/dL (12.0-15.0); Immature Granulocyte Absolute 0.03 K/mm3 (0.00-0.031); Immature Granulocyte Percent A 0.3 % (0-0.5); Lymphocytes Absolute Auto 2.24 K/mm3 (0.9-3.2); Lymphocytes Percent Auto 24.3 % (18.3-44.2); Mean Corpuscular HGB Conc 33.2 g/dl (32-36); Mean Corpuscular Hemoglobin 32.6 pg (26-34); Mean Corpuscular Volume 98.4 fl (80-100); Mean Platelet Volume 9.4 fl (7.4-10.4); Monocytes Absolute Auto 0.7 K/mm3 (0.1-0.6); Monocytes Percent Auto 7.8 % (2.6-8.5); Neutrophils Absolute Auto 6.1 K/mm3 (1.3-6.7); Neutrophils Percent Auto 66.8 % (45.5-73.1); Platelet Count Result 165 k/mm3 (150-375); Red Blood Count 4.26 M/mm3 (4.2-5.4); Red Cell Distribution Width 12.9 % (11.5-14.5); White Blood Count 9.2 K/mm3 (4.5-10.0)
--- NOTE | 2022-06-28 09:39 | SUR.PREOP ---
Eliu from [employer] here to see pt. Explained procedure and life of device to pt. and .
[2022-06-28 09:40] LABS: INR 1.1; Prothrombin Time 13.4 Seconds (11.1-14.7)
[2022-06-28 09:43] LABS: Anion Gap 8 mmol/L (8-16); Blood Urea Nitrogen 22 mg/dL (7-17); Calcium 9.5 mg/dL (8.4-10.2); Carbon Dioxide 30 mmol/L (22-30); Chloride 100 mmol/L (98-107); Estimated CRCL calculation 38 ml/min; Estimated Glomerular Filt Rate > 60; Glucose 141 mg/dL (65-110); Potassium 3.1 mmol/L (3.4-5.0); Sodium 138 mmol/L (137-145)
--- NOTE | 2022-06-28 11:10 | SUR.PREOP ---
Dr. Ulrich here to see pt. Notified of lab results.
--- NOTE | 2022-06-28 11:44 | WPDMODSED ---
Moderate Sedation Note-Pt Data Patient Data Diagnosis: Recurrent syncope secondary to intermittent complete heart block Present Complaint: Patient with recurrent syncope status post recorder implant.? The loop recorder implant has revealed an episode of complete heart block lasting for 21 seconds associated with syncope.? The patient is here for placement of a permanent dual-chamber pacemaker. ? She also has history of hypertension, diabetes and hyperlipidemia.? She also appears to have some dementia. Echo showed ejection fraction greater than 70%, mild LVH and diastolic dysfunction.? EKG in January 2022 showed sinus rhythm with normal intervals, cannot rule out old inferior [place].? She is feeling well today, no fevers or infections, has been NPO.? She has had no history of clavicular fracture. Procedure to be performed/Plan: Conscious sedation Venogram Placement of a temporary transvenous pacemaker, dual chamber Explant of the loop recorder Allergies Allergy/AdvReac Type Severity Reaction Status Date / Time codeine Allergy Severe Vomiting Verified 06/28/22 09:26 Aktjqus-PVY-ArE Reductase AdvReac Mild Muscle Pain Verified 06/28/22 09:26 Inhibitor [Cguoaov-Ulj-Vqe Reductase Inhibitor] Home Medications Medication Instructions Recorded Confirmed Type multivit with 1 tablet PO DAILY 05/21/19 06/27/22 History mnztwfhh-ucfl-GP-lutein 8 mg iron-400 mcg-300 mcg tablet (Ultimate Women's Complete 50+) biotin 10,000 mcg capsule 10,000 mcg PO DAILY 10/20/19 06/27/22 History cinnamon bark 500 mg capsule 1,000 mg PO DAILY 10/20/19 06/27/22 History cholecalciferol (vitamin D3) 25 40 mcg PO DAILY 04/21/20 06/27/22 History mcg (1,000 unit) capsule potassium gluconate 595 mg (99 mg) 99 mg PO DAILY 05/25/20 06/27/22 History tablet blood-glucose meter (Accu-Chek #1 ea 05/26/20 04/20/22 Rx Guide Glucose Meter) lancets (Accu-Chek Softclix #100 ea 08/25/21 04/20/22 Rx Lancets) omega 3,6,9 combination no.7 92 mg 1,600 mg PO DAILY 11/13/21 06/27/22 History (43 mg-22 [id number]) chew tablet ezetimibe 10 mg tablet 10 mg PO QPM #90 tabs 04/13/22 06/27/22 Rx metformin 500 mg tablet,extended 1,500 mg PO QPM #270 tabs 04/13/22 06/28/22 Rx release 24 hr lisinopril 10 mg tablet 5 mg PO DAILY 04/20/22 06/27/22 History alendronate 70 mg tablet See Rx Instructions .Route 05/15/22 06/27/22 Rx .COMPLEX #12 tabs blood sugar diagnostic (Accu-Chek #100 strips 06/18/22 06/18/22 Rx Guide test strips) vit C 250 mg-vit E 90 mg-zinc 40 1 tablet PO DAILY 06/27/22 06/27/22 History mg-copper 1 mz-zcbcgt-pczujg capsule (PreserVision AREDS-2) Sedation/Anesthesia: No previous sedation/anesthesia problems (including family history). [facility] Past Medical History Medical History Back pain Hyperlipidemia LDL goal <100 Intermittent complete heart block Memory loss Osteoarthritis Osteopenia after menopause Type 2 diabetes mellitus Surgical History Surgical History History of hysterectomy History of tonsillectomy and adenoidectomy [place] teeth removed Family History Family History Father Diabetes mellitus Hypertension Family history of cardiovascular disease Mother Family history of Alzheimer's disease Other Osteoporosis Social History Social History Social History: The patient is and lives with her of 55 years. She has 1 biological child and she has 1 adopted. He is retired from [employer] which she had her 1st child. She is lifelong nonsmoker. She does not use any alcohol marijuana or illicit drugs. Her is the durable power privacy attorney for healthcare. Code status full code Smoking status: Never smoker [facility]
--- NOTE | 2022-06-28 14:29 | ECG_ITS ---
Measurements Intervals [place] Rate: 65 P: 43 [place]: 132 QRS: 81 QRSD: 74 T: 54 QT: 361 QTc: 377 Interpretive Statements SINUS RHYTHM LOW QRS VOLTAGE IN PRECORDIAL LEADS [QRS DEFLECTION < 1.0 mV IN CHEST LEADS] COMPARED TO ECG 06/28/2022 09:37:06 NO SIGNIFICANT CHANGES Electronically Signed On 06-28-2022 15:52:40 WOOD SCIENCE PROFESSOR by Golden Guadalupe M.D.
--- NOTE | 2022-06-28 14:33 | PM.OP ---
Procedure Note - Brief Procedure Note - Brief Date of procedure: 06/28/22 Pre-op diagnosis: sick sinus syndrome Recurrent syncope secondary to complete heart block Procedure performed: conscious sedation Venogram Implantation of a permanent dual-chamber Medtronic pacemaker Explant of the loop recorder Description of procedure: uneventful implant of a dual-chamber pacemaker explant the loop recorder Surgeon: Kelsie Ulrich MD Complications: No immediate complications Condition: Stable Disposition: Floor
--- NOTE | 2022-06-28 14:53 | W.PM.PROC2 ---
Procedure Note - Detailed Date of Procedure 06/28/22 Pre-op Diagnosis sick sinus syndrome Post-op Diagnosis Other (Status post implantation of a permanent dual-chamber pacemaker an explant of a loop recorder) Procedure Performed Conscious sedation Venogram Implantation of a permanent dual-chamber Medtronic pacemaker Explant of the loop recorder Surgeon Kelsie Ulrich MD Anesthesia Local (With conscious sedation) Indications Patient with recurrent syncope status post recorder implant.? The loop recorder implant has revealed an episode of complete heart block lasting for 21 seconds associated with syncope.? The patient is here for placement of a permanent dual-chamber pacemaker. ? She also has history of hypertension, diabetes and hyperlipidemia.? Echo showed ejection fraction greater than 70%, mild LVH and diastolic dysfunction.? EKG in January 2022 showed sinus rhythm with normal intervals, cannot rule out old inferior [place].? She is feeling well today, no fevers or infections, has been NPO.? She has had no history of clavicular fracture. Description of Procedure SITE: Left prepectoral area MEDICATIONS GIVEN IN COMMUNICATIONS CLERK: Ancef 1 gram IV piggyback CONSCIOUS SEDATION: Assessment: The patient has no history of anesthesia problems. The patient's oropharynx is clear. The patient was deemed to be a good candidate for conscious sedation. The patient had continuous hemodynamic monitoring during the procedure. Start time: 12:33 p.m. Completion time: 2:24 p.m. Total conscious sedation time: 111 minutes Medications: Versed 5 mg, fentanyl 125 mcg IV push Trained observer:Lori Obregon RN and Manda Bah RN Outcome: The patient tolerated the procedure well with no complications. PROCEDURE: After informed consent , the patient was brought to the microbiology lab analyst and the left prepectoral area was prepped and draped in usual fashion . The patient received preop antibiotic and conscious sedation . The left prepectoral area was anesthetized with lidocaine . A venogram was performed showing the course of the left subclavian vein,which was patent. Next a skin incision was made and carried down to the prepectoral fascia. Hemostasis was obtained using electrocautery . The pacer pocket was formed. The left subclavian vein was accessed with the micropuncture technique, and a J-tipped guide wire was passed into the inferior vena cava under fluoroscopic guidance. The needle was withdrawn. I was unable to easily puncture the left subclavian vein a 2nd time, so I placed a 7 [place] sheath over the existing wire, and a 2nd wire was passed into the inferior vena cava. The sheath was removed and replaced over 1 wire. The right ventricular lead was passed into the inferior vena cava under fluoroscopic guidance . The lead was then prolapsed through the tricuspid valve and advanced into the right ventricular apex. When suitable sensing and pacing thresholds were obtained, it was screwed into place. No extra cardiac stimulation was obtained using 10 volts. The sheath was withdrawn. Next, another 7 [place] safety sheath was passed over the 2nd wire, the wire withdrawn, and the right atrial lead was passed into the inferior vena cava under fluoroscopic guidance. Right atrial lead was then pulled back to the level of the right atrium and manipulated into the right atrial appendage . When suitable sensing and pacing thresholds were obtained , it was screwed into place . It required repositioning once for poor sensing. No extra cardiac stimulation was obtained using 10 volts. The sheath was withdrawn. Both leads were secured to the prepectoral fascia using 2-0 silk over their respective sleeves. The pocket was cleansed with antibiotic containing solution . The pulse generator was introduced into the operative field, and both leads were secured into the generator . A gentle tug showed the leads were securely fastened. The device was introdu
--- NOTE | 2022-06-28 15:37 | SUR.PHASEII ---
One hour phase 2 recovery complete, see pcs for further documentation
[2022-06-28] MEDS: metFORMIN HCL XR 500 MG TAB.SR.24H 1500 MG PO (18:24)
[2022-06-28] MEDS: POTASSIUM CHLORIDE 20 MEQ PACKET (FOR LIQUID) PO (18:55)
[2022-06-29] VITALS (10 sets, daily range): BP systolic 119–129; BP diastolic 55–63; PULSE 73–94; RESP 16–20; TEMP 36.6–36.9; O2SAT 97–100
[2022-06-29] MEDS: POTASSIUM CHLORIDE 20 MEQ PACKET (FOR LIQUID) PO (09:20)
[2022-06-29] MEDS: lisinopriL 5 MG TABLET PO (09:20)
--- NOTE | 2022-06-29 12:34 | PM.DS ---
DS: Admitting Diagnosis Discharge Date 06/29/2022 Admitting Diagnosis syncope DS: Discharge Diagnosis Discharge Diagnosis (1) Recurrent syncope: Code(s): R55 - Syncope and collapse Status: Acute Assessment and Plan: Secondary to complete heart block now s/p PPM (2) Intermittent complete heart block: Code(s): I44.2 - Atrioventricular block, complete Status: Acute Assessment and Plan: S/p implantation of dual chamber Medtronic pacemaker. Pacemaker checked this morning and functioning normally. Follow up chest Xray with no pneumothorax. OK for discharge home today. (3) Memory loss: Code(s): R41.3 - Other amnesia Status: Acute DS: Summary Hospital Course Hospital Course: Admitted after elective pacemaker placement and loop explant yesterday. Uncomplicated procedure. She was admitted overnight for observation and did not have any issue overnight. Feeling well this morning, follow up chest Xray with no pneumo. Pacemaker check this morning looks good. OK for discharge home today. Time Spent with Patient Time attestation: Total time spent providing and/or coordinating discharge services: Exam Const: General: cooperative, healthy appearing, comfortable and confusion Orientation/consciousness: oriented to person and confusion HENMT: Mouth: Yes moist mucous membranes Neck: Neck: supple Resp: Effort & Inspection: normal respiratory effort Auscultation: clear to auscultation bilaterally Cardio: Rate: regular rate Rhythm: regular rhythm Heart sounds: no murmurs GI: Inspection: normal to inspection Skin: General skin exam: normal color and no rashes or lesions noted Other: L upper chest pacemaker insertion site with sterile dressing in place no hematoma, no shadowing on dressing Neuro: General: oriented to person and confusion Extrem: Right lower extremity: no edema Left lower extremity: no edema Psych: Appearance: grossly normal Mental Status: mental status grossly normal Discharge Plan Discharge Patient Disposition: Home, Self-Care Discharge Instructions: [facility] [address] [place] [address] DISCHARGE INSTRUCTIONS - POST PACEMAKER Activity 1. No driving until you are seen in the office for your incision check. 2. No lifting, pushing or pulling more than 5 pounds with affected arm for 1 MONTH 3. No lifting affected arm above shoulder height for 1 MONTH 4. Wear immobilizer/sling only if you are unable to remember the above activity restrictions. Recommend that it be worn at night. 5. You may shower AFTER you are seen for incision check but no tub baths, swimming pool or hot tub for 1MONTH Wound Care 1. Do not attempt to remove the Aquacel dressing. Leave dressing undisturbed until incision check at the office visit. Keep dressing dry. 2. When you are able to shower AFTER you are seen for your incision check in the office do not rub or scrub the incision. Pat dry after shower. NO lotions, powders, creams or ointments are to be applied to the incision 3. A small amount of tenderness, puffiness and bruising around the site is normal. Call if any significant pain, drainage, swelling, or redness around the site 4. Wear a bra to support the breast tissue and avoid pulling on the incision. Pad the bra strap if necessary with soft smooth cloth. *For any other questions please call the office at [phone]. Office hours are 8AM 4:30PM Saturday
== END 2022-06-29 13:39 | disposition home or self-care (01) ==
LOC: ANHCATHLAB 10:16 → ANHCPC 16:30 → ANH2MED 07-30 12:56
PROVIDERS: PCP Family Medicine; Visit Provider Internal Medicine Cardiovascular Disease
PROC: 0JH606Z Insertion of Pacemaker, Dual Chamber into Chest Subcutaneous Tissue and Fascia, Open Approach (ICD-10-PCS; CPT 33208; principal; 2022-06-28 10:30)
PROC: (CPT 33286; 2022-06-28 10:30)
DX: I44.2 Atrioventricular block, complete (principal); I49.5 Sick sinus syndrome; R55 Syncope and collapse; R41.3 Other amnesia; E78.5 Hyperlipidemia, unspecified; I10 Essential (primary) hypertension; E11.9 Type 2 diabetes mellitus without complications; M85.80 Other specified disorders of bone density and structure, unspecified site; Z79.84 Long term (current) use of oral hypoglycemic drugs
CPT/HCPCS: 33208; 33286; 36415; 71045; 71046; 80048; 85025; 85610; 93005; A9270; C1779; C1785; C1894; J0690; J2250; J3010; J7040

== ENCOUNTER 2022-07-25 10:36 | Outpatient (CLI) | payer MEDICARE, OTHER, SELFPAY ==
--- NOTE | ~2022-07-25 | XR_ITS ---
EXAMINATION: XR chest 2V Exam Date/Time: 07/25/2022 10:52 LEAD RAMP AGENT HISTORY: RECURRENT SYNCOPE;CARDIAC PACEMAKER IN SITU Comparison: 06/29/2022. RESULT: Lines, tubes, and devices: Left chest pacer with intact leads. Lungs and pleura: Senescent change, otherwise clear. Cardiomediastinal silhouette: Stable. Other: No acute osseous or upper abdominal finding. IMPRESSION: No acute cardiopulmonary process. Reviewed, dictated and finalized at location K. RAMP AGENT
== END 2022-07-25 10:37 | disposition home or self-care (01) ==
PROVIDERS: PCP Family Medicine; Visit Provider Internal Medicine Cardiovascular Disease
DX: R55 Syncope and collapse (principal); Z95.0 Presence of cardiac pacemaker; I48.0 Paroxysmal atrial fibrillation; I44.2 Atrioventricular block, complete; T82.110A Breakdown (mechanical) of cardiac electrode, initial encounter
CPT/HCPCS: 71046

== ENCOUNTER 2023-03-20 10:50 | Outpatient (CLI) | payer MEDICARE, OTHER, SELFPAY ==
--- NOTE | ~2023-03-20 | XR_ITS ---
XR chest 2V 03/20/2023 11:18 Indication: Cardiac pacemaker Procedure: PA and lateral views of the chest Comparison: No prior studies for comparison. Findings: Heart size normal. There is scoliosis. Pacemaker leads in expected position. No focal air s pace disease, pulmonary edema, pleural effusion or suspected pneumothorax. Impression: 1: No acute cardiopulmonary disease. Reviewed, dictated and finalized at location B. Impression: 1: No acute cardiopulmonary disease.
== END 2023-03-20 10:51 | disposition home or self-care (01) ==
PROVIDERS: PCP Family Medicine; Visit Provider Internal Medicine Cardiovascular Disease
DX: I44.2 Atrioventricular block, complete (principal); T82.110A Breakdown (mechanical) of cardiac electrode, initial encounter; Z95.0 Presence of cardiac pacemaker
CPT/HCPCS: 71046

== ENCOUNTER 2023-04-10 08:44 | Outpatient (CLI) | payer MEDICARE, OTHER, SELFPAY ==
--- NOTE | ~2023-04-10 | DEXA_ITS ---
Bone Density Report Name: MIRTA CORMIER Age: 77 Sex: Female Ethnicity: White Date of : 1945 Indication: osteopenia; height loss; hysterectomy; postmenopausal Referring Provider: RAULITO FRANCE Study: Bone densitometry was performed. Exam Date: April 10, 2023 Accession number: [id number] Bone Density: Region BMD T-score Z-score Classification AP Spine(L1-L4) 0.831 -2.0 0.6 Osteopenia Femoral Neck (Left) 0.682 -1.5 0.7 Osteopenia Total Hip (Left) 0.730 -1.7 0.2 Osteopenia Femoral Neck (Right) 0.653 -1.8 0.5 Osteopenia Total Hip (Right) 0.716 -1.9 0.1 Osteopenia Total Hip Mean 0.723 -1.8 0.2 Osteopenia World Health Organization criteria for BMD impression classify patients as: Normal (T-score at or above -1.0), Osteopenia (T-score between -1.0 and -2.5), or Osteoporosis (T-score at or below -2.5). 10-year Fracture Risk(1): Major Osteoporotic Fracture 14% Hip Fracture 3.5% Reported Risk Factors: [place] (), Neck BMD=0.653, BMI=25.5 (1) FRAX(R) Version 3.08. Fracture probability calculated for an untreated patient. Fracture probability may be lower if the patient has received treatment. Previous Exams: Region Exam Age BMD T-score BMD Change BMD Change Date g/cm2 vs Baseline vs Previous AP Spine (L1-L4) 04/10/2023 77 0.831 -2.0 -0.017 (-2.1%) 0.028 (3.4%)* 04/06/2022 76 0.803 -2.2 -0.045 (-5.3%) -0.026 (-3.2%) 01/16/2021 75 0.829 -2.0 -0.019 (-2.2%) 0.057 (7.3%)* 07/02/2019 73 0.773 -2.5 -0.075 (-8.9%) -0.031 (-3.8%) 06/26/2017 71 0.803 -2.2 -0.045 (-5.3%) -0.033 (-3.9%) 06/20/2015 69 0.836 -1.9 -0.012 (-1.4%) -0.012 (-1.4%) 06/15/2013 67 0.848 -1.8 Total Hip(Left) 04/10/2023 77 0.730 -1.7 -0.103 (-12.3% -0.071 (-8.8%) 04/06/2022 76 0.800 -1.2 -0.032 (-3.8%) 0.013 (1.6%) 01/16/2021 75 0.788 -1.3 -0.045 (-5.4%) -0.015 (-1.9%) 07/02/2019 73 0.802 -1.1 -0.030 (-3.6%) -0.011 (-1.3%) 06/26/2017 71 0.813 -1.1 -0.019 (-2.3%) 0.038 (4.9%)* 06/20/2015 69 0.775 -1.4 -0.057 (-6.8%) -0.057 (-6.8%) 06/15/2013 67 0.832 -0.9 Total Hip(Right) 04/10/2023 77 0.716 -1.9 -0.105 (-12.8% -0.020 (-2.8%) 04/06/2022 76 0.737 -1.7 -0.085 (-10.3% -0.042 (-5.4%) 01/16/2021 75 0.779 -1.3 -0.043 (-5.2%) -0.027 (-3.4%) 07/02/2019 73 0.806 -1.1 -0.015 (-1.9%) 0.005 (0.6%) 06/26/2017 71 0.801 -1.2 -0.021 (-2.5%) 0.008 (1.0%) 06/20/2015 69 0.793 -1.2 -0.029 (-3.5%) -0.029 (-3.5%) 06/15/2013 67 0.822 -1.0
== END 2023-04-10 08:45 | disposition home or self-care (01) ==
LOC: ANHIMG 08:45
PROVIDERS: PCP Family Medicine; Visit Provider Internal Medicine Endocrinology, Diabetes & Metabolism
DX: M81.0 Age-related osteoporosis without current pathological fracture (principal); M85.88 Other specified disorders of bone density and structure, other site; M85.852 Other specified disorders of bone density and structure, left thigh; M85.851 Other specified disorders of bone density and structure, right thigh
CPT/HCPCS: 77080

== ENCOUNTER 2023-05-30 08:22 | Outpatient (CLI) | payer MEDICARE, OTHER, SELFPAY ==
--- NOTE | 2023-06-04 10:00 | WPDNEUROLOGY ---
Neurology EEG Report General Information Date of Study: 05/30/23 TEST eeg DIAGNOSIS myoclonus CONDITION OF RECORDING awake drowsy and sleep EEG NUMBER [id number] CLINICAL HISTORY patient reported she has uncontrollable tremors throughout her body. It has been happening for a while and is getting worse. Patient was noted to have tremors and eye movement throughout the complete tracing and was unable to relax and kept apologizing for not being able to control the movements. EEG DESCRIPTION Background rhythm consisted of low to medium voltage 5 to 7 hertz per 2nd theta activity admixed with and superimposed by low voltage 15 to 18 hertz per 2nd beta activity bilateral sleep activity was noted during sleep. Photic stimulation produced poor drive. Hyperventilation not done. Non paroxysmal. Nonfocal. Nonlateralizing. IMPRESSION No significant abnormalities noted in this tracing with poor eron posterior gradient and also multiple movement artifacts throughout the tracing.
== END 2023-05-30 08:23 | disposition home or self-care (01) ==
LOC: ANHNEURO 08:23
PROVIDERS: PCP Family Medicine; Visit Provider Student in an Organized Health Care Education/Training Program
DX: G25.3 Myoclonus (principal)
CPT/HCPCS: 95816

== ENCOUNTER 2023-07-02 10:26 | Outpatient (CLI) | payer MEDICARE, OTHER, SELFPAY ==
[2023-07-02 10:45] LABS: Basophils Percent Auto 0.5 % (0.2-1.2); Eosinophils Absolute Auto 0.2 K/mm3 (0-0.3); Eosinophils Percent Auto 2.4 % (0-4.4); Hematocrit 42.3 % (37.0-47.0); Hemoglobin 13.8 g/dL (12.0-15.0); Immature Granulocyte Absolute 0.04 K/mm3 (0.00-0.031); Immature Granulocyte Percent A 0.5 % (0-0.5); Lymphocytes Absolute Auto 2.03 K/mm3 (0.9-3.2); Lymphocytes Percent Auto 24.3 % (18.3-44.2); Mean Corpuscular HGB Conc 32.6 g/dl (32-36); Mean Corpuscular Hemoglobin 32.4 pg (26-34); Mean Corpuscular Volume 99.3 fl (80-100); Mean Platelet Volume 9.5 fl (7.4-10.4); Monocytes Absolute Auto 0.6 K/mm3 (0.1-0.6); Monocytes Percent Auto 7.4 % (2.6-8.5); Neutrophils Absolute Auto 5.4 K/mm3 (1.3-6.7); Neutrophils Percent Auto 64.9 % (45.5-73.1); Platelet Count Result 186 k/mm3 (150-375); Red Blood Count 4.26 M/mm3 (4.2-5.4); White Blood Count 8.4 K/mm3 (4.5-10.0)
[2023-07-02 10:58] LABS: Alanine Aminotransferase 14 U/L (6-35); Albumin Level 3.9 g/dL (3.5-5.1); Alkaline Phosphatase 56 U/L (38-126); Anion Gap 8 mmol/L (8-16); Aspartate Amino Transferase 24 U/L (14-36); Bilirubin,Total 0.7 mg/dL (0.2-1.3); Blood Urea Nitrogen 16 mg/dL (7-17); CRP < 0.5 mg/dL (<1.0); Calcium 9.7 mg/dL (8.4-10.2); Carbon Dioxide 29 mmol/L (22-30); Chloride 101 mmol/L (98-107); Estimated Glomerular Filt Rate > 60; Glucose 119 mg/dL (65-110); Magnesium 2.1 mg/dL (1.6-2.3); Phosphorus 3.6 mg/dL (2.5-4.5); Potassium 3.6 mmol/L (3.4-5.0); Sodium 138 mmol/L (137-145)
[2023-07-02 11:22] LABS: Erythrocyte Sedimentation Rate 12 mm/hr (0-20)
[2023-07-02 11:47] LABS: Thyroid Stimulating Hormone 0.031 uIU/mL (0.465-4.680)
[2023-07-02 12:15] LABS: Rapid Plasma Reagin Non-Reactive (NonReactive)
[2023-07-02 12:26] LABS: Folic Acid > 20.0 ng/mL (2.76->20)
[2023-07-04 15:02] LABS: Lyme Disease Ab (IgM), Blot Negative (Negative); Lyme Disease Ab(IgG), Blot Negative (Negative)
[2023-07-05 07:06] LABS: Ceruloplasmin 24 mg/dL (18-53)
[2023-07-08 02:18] LABS: Angiotensin Converting Enzyme 6 U/L (9-67)
== END 2023-07-02 10:27 | disposition home or self-care (01) ==
PROVIDERS: PCP Family Medicine; Visit Provider Student in an Organized Health Care Education/Training Program
DX: F03.90 Unspecified dementia, unspecified severity, without behavioral disturbance, psychotic disturbance, mood disturbance, and anxiety (principal); G25.3 Myoclonus; I10 Essential (primary) hypertension; Z11.3 Encounter for screening for infections with a predominantly sexual mode of transmission
CPT/HCPCS: 36415; 80053; 82164; 82390; 82607; 82746; 83735; 84100; 84425; 84443; 85025; 85652; 86038; 86140; 86592; 86617

== ENCOUNTER 2024-03-04 12:37 | Outpatient (CLI) | payer MEDICARE, OTHER, SELFPAY ==
[2024-03-04 14:26] LABS: Thyroid Stimulating Hormone 0.289 uIU/mL (0.465-4.680)
[2024-03-04 15:06] LABS: Folic Acid > 20.0 ng/mL (2.76->20)
[2024-03-08 14:13] LABS: Vitamin D 1,25 (OH)2 Total 63 pg/mL (18-72); Vitamin D2 1,25 (OH)2 <8 pg/mL; Vitamin D3 1,25 (OH)2 63 pg/mL
== END 2024-03-04 12:38 | disposition home or self-care (01) ==
PROVIDERS: PCP Family Medicine; Visit Provider Psychiatry & Neurology Neurology
DX: E55.9 Vitamin D deficiency, unspecified (principal); R41.3 Other amnesia; G25.3 Myoclonus; E11.9 Type 2 diabetes mellitus without complications; R44.3 Hallucinations, unspecified
CPT/HCPCS: 36415; 82607; 82652; 82746; 84443

== ENCOUNTER 2024-03-06 10:24 | Outpatient (CLI) | payer MEDICARE, OTHER, SELFPAY ==
--- NOTE | 2024-03-12 12:35 | WPDNEUROLOGY ---
Neurology EEG Report General Information Date of Study: 03/06/24 TEST electroencephalogram DIAGNOSIS amnesia, history of traumatic injury to the head CONDITION OF RECORDING neurodiagnostic lab EEG NUMBER [id number] CLINICAL HISTORY history of traumatic injury to the head EEG DESCRIPTION background activity consists of predominantly theta activity at 7 hertz with an amplitude of 15-30 microvolts which appears poorly organized. Anteriorly mixed frequency activity was seen. There is no significant anteroposterior gradient. Hyperventilation was not performed. Patient did not progress to stage 2 sleep. Photic stimulation was performed during which no significant abnormal background changes were seen. No appreciable driving response was noted. IMPRESSION This is a mild abnormal EEG due to presence of diffuse background slowing suggestive of generalized encephalopathy. However no focal or paroxysmal abnormalities were seen.
== END 2024-03-06 10:25 | disposition home or self-care (01) ==
LOC: ANHNEURO 10:25
PROVIDERS: PCP Family Medicine; Visit Provider Psychiatry & Neurology Neurology
DX: R94.01 Abnormal electroencephalogram [EEG] (principal); R41.3 Other amnesia; G25.3 Myoclonus; E11.9 Type 2 diabetes mellitus without complications; R44.3 Hallucinations, unspecified; Z87.828 Personal history of other (healed) physical injury and trauma
CPT/HCPCS: 95816

== ENCOUNTER 2024-03-09 02:08 | Emergency (ER) | payer MEDICARE, OTHER, SELFPAY ==
--- NOTE | ~2024-03-09 | XR_ITS ---
Right Humerus Technique: AP and lateral views were obtained. Clinical History: Status post fall Findings: There is an acute, oblique, mildly displaced fracture of the mid humeral shaft. Joint space s are intact. Soft tissues are unremarkable. Impression: Acute fracture of the mid humeral shaft, as detailed above. Reviewed, dictated and finalized at location M. Impression: Acute fracture of the mid humeral shaft, as detailed above.
[2024-03-09 02:11] VITALS: BP 138/66; PULSE 86; RESP 15; TEMP 36.4; O2SAT 100
[2024-03-09] MEDS: ONDANSETRON INJ 4 MG/2 ML VIAL IV PUSH ×2 (02:36→04:00)
[2024-03-09] MEDS: MORPHINE SULFATE (*CRX) 2 MG/ML INJ IV PUSH ×3 (02:36→04:00)
--- NOTE | 2024-03-09 03:59 | ED.FALL ---
HPI - Fall General Chief Complaint: Fall Stated Complaint: fall History of Present Illness HPI Narrative: Patient is a 78-year-old female with a past medical history of Alzheimer's and Lewy body dementia presents to the emergency department this morning status post a fall that occurred at home. Has been is currently present with the patient and states that the patient got up in the middle the night to go use the bathroom and fell down 3 steps that lead into the hallway where the bathroom is. Has been heard the fall and when he went to go evaluate the patient he found her on the ground on her right side. Patient did not hit her head and is not on any blood thinners. Has been noted an obvious deformity to her right mid humerus and called EMS. Patient was brought to our facility for further evaluation. EMS did place patient in a splint prior to arrival. No medications were administered as they were not able to obtain an IV. Patient denies any additional injuries or concerns at this time. She denies any weakness, numbness and tingling to her right arm. Related Data Home Medications Medication Instructions Recorded Confirmed xoqecltr-lwsn-xsls 8 mg-folic 400 1 tablet PO DAILY 05/21/19 10/29/23 mcg-K 50 mcg-lutein 300 mcg tablet (Ultimate Women's Complete 50 Plus) biotin 10,000 mcg capsule 10,000 mcg PO DAILY 10/20/19 10/29/23 cinnamon bark 500 mg capsule 1,000 mg PO DAILY 10/20/19 10/29/23 cholecalciferol (vitamin D3) 25 40 mcg PO DAILY 04/21/20 10/29/23 mcg (1,000 unit) capsule potassium gluconate 595 mg (99 mg) 99 mg PO DAILY 05/25/20 10/29/23 tablet omega 3,6,9 combination no.7 92 mg 1,600 mg PO DAILY 11/13/21 10/29/23 (43 mg-22 [id number]) chew tablet calcium carbonate 600 mg PO DAILY 09/04/22 10/29/23 Allergies Allergy/AdvReac Type Severity Reaction Status Date / Time codeine Allergy Severe Vomiting Verified 03/09/24 02:19 Ajycacb-TQY-YwR Reductase AdvReac Mild Muscle Pain Verified 03/09/24 02:19 Inhibitor [Koxvmip-Wbp-Qfl Reductase Inhibitor] Review of Systems Review of Systems: All systems are reviewed and are negative unless stated otherwise in the HPI. PMFSH Past Medical History Medical History Back pain Dementia of Alzheimer's type with behavioral disturbance Hyperlipidemia LDL goal <100 Intermittent complete heart block Memory loss Osteoarthritis Osteopenia after menopause Type 2 diabetes mellitus Surgical History Surgical History History of hysterectomy History of tonsillectomy and adenoidectomy Mitchell teeth removed Family History Family History Father Diabetes mellitus Hypertension Family history of cardiovascular disease Mother Family history of Alzheimer's disease Other Osteoporosis Social History Social History Social History: The patient is and lives with her of 55 years. She has 1 biological child and she has 1 adopted. He is retired from [employer] which she had her 1st child. She is lifelong nonsmoker. She does not use any alcohol marijuana or illicit drugs. Her is the durable power document review attorney for healthcare. Code status full code Caffeine- none Smoking packs per day: 0 Smoking cigarettes per day: 0.0 Years smoked: 0 Smoking pack-years: 0.00 Smoking status: Never smoker Second hand tobacco smoke exposure: No Alcohol intake: never Substance use: never Substance use type: does not use Do You Feel Safe in your Home?: Yes Lack of Transportation: No Lack of Food: Never True Current Housing: I Have Housing Concerned About Future Housing: No Difficulty Paying Gas/Electric Bills: No Difficulty Paying for Meds: No Currently Unemployed: No Educatio
[2024-03-09 04:36] VITALS: BP 106/52; PULSE 81; RESP 15; O2SAT 98
== END 2024-03-09 04:36 | disposition home or self-care (01) ==
LOC: ANHED 04:05
PROVIDERS: Emergency Provider Emergency Medicine; PCP Family Medicine
DX: S42.331A Displaced oblique fracture of shaft of humerus, right arm, initial encounter for closed fracture (principal); G31.83 Neurocognitive disorder with Lewy bodies; F02.80 Dementia in other diseases classified elsewhere, unspecified severity, without behavioral disturbance, psychotic disturbance, mood disturbance, and anxiety; E78.5 Hyperlipidemia, unspecified; M19.90 Unspecified osteoarthritis, unspecified site; E11.9 Type 2 diabetes mellitus without complications; W10.9XXA Fall (on) (from) unspecified stairs and steps, initial encounter
CPT/HCPCS: 24500; 73060; 96374; 96375; 96376; 99284; J2270; J2405

== ENCOUNTER 2024-07-27 20:23 | Emergency (ER) | payer MEDICARE, OTHER, SELFPAY ==
--- NOTE | ~2024-07-27 | CT_ITS ---
CT head without contrast Indication: Head injury COMPARISON: 01/30/2022 Technique: Serial scans were obtained through the brain without the administration of contrast. Dose reduction technique was used on this scan by utilizing automated exposure control and iterative recon struction technique. The dose-length product (DLP) was 681.00 mGy-cm. Findings: There is no evidence of intracranial hemorrhage, mass lesion, or acute infarct. The ventri cles and subarachnoid spaces are dilated, consistent with mild to moderate atrophy. Low attenuation regions are seen within the periventricular white matter bilaterally, likely representing changes fro m chronic microvascular ischemic disease. There is no evidence of edema, mass effect or midline shif t. The visualized paranasal sinuses and mastoid air cells are clear. Impression: No intracranial hemorrhage, mass, or acute infarct. Atrophy and chronic white matter changes, as above. Reviewed, dictated and finalized at location . Impression: No intracranial hemorrhage, mass, or acute infarct. Atrophy and chronic white matter changes, as above.
--- NOTE | ~2024-07-27 | XR_ITS ---
EXAM: XR hip RT min 2V DATE: 07/27/2024 20:46 HISTORY: FALL . COMPARISON: None available. FINDINGS: Decreased mineralization. Subtle cortical irregularity along the superior margin of the ariza perior pubic ramus, with the suggestion of lucencies within the ramus and pubic bone. No lytic or mason stic lesion. Mild degenerative changes in the right SI joint, pubic symphysis, and right hip. No eros ion or periosteal change. Scattered vascular calcifications. IMPRESSION: Possible superior pubic ramus fracture. Consider CT of the pelvis for further evaluation. Reviewed, dictated and finalized at location K. IMPRESSION: Possible superior pubic ramus fracture. Consider CT of the pelvis f or further evaluation.
--- NOTE | ~2024-07-27 | CT_ITS ---
EXAMINATION: CT pelvis wo con DATE: 07/27/2024 21:47 INDICATION: Possible pelvic fracture TECHNIQUE: Computed tomography (CT) of the pelvis was performed without intravenous contrast. Automat ed exposure control and iterative reconstruction technique were employed. The dose-length product was 121.28 mGy-cm. COMPARISON: X-ray pelvis same date FINDINGS: Osteopenia. Degenerative changes in the lumbar spine, bilateral hips and pubic symphysis. S ubtle nondisplaced right superior pubic ramus fracture extending into the pubic bone, with mild surro unding soft tissue stranding likely representing blood products. No other fracture identified. Grade 1 anterolisthesis at L4-5. Atherosclerotic arterial calcifications. Absent uterus. Nearly empty urina ry bladder. Rectal wall thickening. IMPRESSION: Subtle nondisplaced superior pubic ramus fracture. No other pelvic or hip fracture detected. Rectal wall thickening, correlate for clinical findings/symptoms of proctitis. A rectal mass is not e xcluded. Reviewed, dictated and finalized at location K. IMPRESSION: Subtle nondisplaced superior pubic ramus fracture. No other pelvic or hip fract ure detected. Rectal wall thickening, correlate for clinical findings/symptoms of proctitis. A rectal mass is not excluded.
--- OUTSIDE RECORDS SUMMARY | 2024-07-27 20:26 | XMS_ITS | Clinical Summary ---
Author Organization [facility] [employer] Address [address] [place] [address] Care Team Providers Care Operations Analyst Name Role Phone Unknown, Provider Primary Care Provider Unavaila ble Source Comments [facility],non-owned Affiliates and Associated Physician Practices is amultiple site organization consisting of ambulatory clinics and hospital sitesin [place], [place], [place] and [place]. This disclosure is being madepursuant to the Care Everywhere program and may not contain all information available regarding this patient. Last updated 18.[facility] [employer] Allergies Active Allergy Reactions Criticality Noted Date Comments Codeine Vomiting Low 03/08/2022 Medications * Be aware that medications may not be up to date on this document. Alwaysverify current medications with the patient. Medication Sig Dispensed Refills Start Date End Date Status Multiple Vitamins-Minerals (MULTIVITAMIN ADULTS 50+ PO) Take 1 tablet by mouth once daily Active Multiple Vitamins-Minerals (PreserVision AREDS 2) capsule Active omega 3 (Fish Oil) 1200 MG capsule 1 (one) capsule Acti ve Biotin 10 MG Active Chromium-Cinnamon 100-500 MCG-MG Active donepezil (Aricept) 5 MG tablet Take 1 (one) tablet by mouth at bedtime 11/21/2022 Active lisinopril (Prinivil; Zestril) 5 MG tablet Take 1 (one) tablet by mouth once daily 08/01/2022 Active Potassium Citrate,Elemental K, 99 MG CAPS Take 1 capsule by mouth once daily Active alendronate (Fosamax) 70 MG tablet Take 1 (one) tablet by mouth every 7 days before meal Take in morning with full glass of water on empty stomach and remain upright for 30 min Active ezetimibe (Zetia) 10 MG tablet Take 1 (one) tablet by mouth once daily Active metFORMIN (Glucophage) 500 MG tablet Take 3 (three) tablets by mouth once daily in evening Active gabapentin (Neurontin) 100 MG capsule Take 2 (two) capsules by mouth 2 times daily Active Multiple Minerals-Vitamins (uvxeexh-bfbzndjxq-r inc-D3) TABS tablet Take by mouth once daily Active LORazepam (Ativan) 0.5 MG tablet TAKE 1 TABLET BY MOUTH THREE TIMES DAILY FOR MYOCLONUS. HOLD IF EXCESSIVELY DROWSY DURING THE DAYTIME. MAY INCREASE UP TO 3 TIMES A DAY IF NECESSARY. Active memantine (Namenda Titration Yovany) kit as directed Activ e sertraline (Zoloft) 50 MG tablet Take 1 (one) tablet by mouth at bedtime 12/12/2023 Active vitamin D3 (Cholecalciferol) 10 MCG (400 UNIT) tablet Take 1 (one) tablet by mouth once daily Active Social History Tobacco Use Types Packs/Day Years Used Date Smoking Tobacco: Never Smokeless Tobacco: Never Tobacco Cessation:Counseling Given: Not Answered Alcohol Use Standard Drinks/Week Comments Never 0 (1 standard drink = 0.6 oz pur e alcohol) AUDIT-C Answer Date Recorded Q1: How often do you have a drink containing alc ohol? Never 08/16/2023 Average Number of Drinks Not on file 024 Frequency of Binge Drinking Not on file 07/19 Sex and Gender Information Value Date Recorded Sex Assigned at Not on file Gender Identity Not on file Sexual Orientation Not on file Last Filed Vital Signs Vital Sign Reading Time Taken Comments Blood Pressure 128/83 12/25/2023 3:11 PM CDT Pulse 84 12/25/2023 3:11 PM CDT Temperature 36.4 C (97.6 F) 08/16/2023 5:10 PM CDT Respiratory Rate 19 08/16/2023 5:34 PM CDT Oxygen Saturation 97% 12/25/2023 3:11 PM CDT Inhaled Oxygen Concentration - - Weight 56.2 kg (124 lb) 12/25/2023 3:11 PM CDT Height 160 cm (5' 3 ) 12/25/2023 3:11 PM CDT Body Mass Index 21.97 12/25/2023 3:11 PM CDT Plan of Treatment Health Maintenance Due Date Last Done Comments BONE DENSITY TESTING 1945 MEDICARE AWV 12 MONTHS 1945 DTAP/TDAP/TD VACCINES (1 - Tdap) 08/28/1963 PNEUMOCOCCAL VACCINE 50+ (1 of 1 - PCV) 1994 ZOSTER VACCINE (1 of 2) 1994 Respiratory Syncytial Virus (RSV) Vaccine Pt: or over 60 yrs (1 - 1-dose 75+ series) 08/28/2019 COVID-19 VACCINE ( - 2023-2 5 season) 2024 INFLUENZA VACCINE (#1) 2024 DEPRESSION SCREENING 05/20/2024 HEPATITIS B VACCINE Aged Out No longe r eligible based on patient's age to complete this topic HIB VACCINE Aged Out No longer eligi ble based on patient's age to complete this topic HPV VACCINE Aged Out No longer eligi ble based on patient's age to complete this topic MENINGOCOCCAL (Group B) VACCINE Aged Out No longer eligible based on patient's age to complete this topic MENINGOCOCCAL VACCINE Aged Out No carlo kenny eligible based on patient's age to complete this topic Medical Devices Implanted Type Area Education Dean Device Identifier Shelf Expiration Date Model / Serial / Lot Ra Lead [employer] 5076-45 / [id number] / Rv Lead [employer] 5076-52 / [id number] / Pacemaker- 3 Implanted: 023 (Quantity not on file) [employer] [id number] / [id number] / Description:[id number] nA[address] XT DR MARTIN Jaramillo- MRI conditional to 1.5T or 3T-LT 07/17/23 RA 5076-45 RV 5076-52 Care Teams Operations Analyst Relationship Specialty Start Date End Date Unknown, Provider PCP - General 08/14/23
--- OUTSIDE RECORDS SUMMARY | 2024-07-27 20:26 | XMS_ITS | Referral Summary ---
Author Organization [facility] [address] [place] [address] [address] [place] [address] Care Team Providers Care Flight Kitchen Manager Name Role Phone Candy August MD Primary Care Provider [phone] Encounters Date Type Department Care Team Description 06/18/2024 11:00 AM MANAGER LIGHTING - 06/18/2024 11:59 PM MANAGER LIGHTING Hospital Encounter [facility] [address] [place] [address] Elisabeth Mg MD Other closed fracture of shaft of right humerus with routine healing, subsequent encounter Discharge Disposition: Discharge to home or self care 06/18/2024 11:20 AM MANAGER LIGHTING Office Visit [facility] Orthopaedic Surgery [address] [facility] 6th [place] [address] [place] [address] Elisabeth Mg MD Other closed fracture of shaft of right humerus with routine healing, subsequent encounter (Primary Dx) 05/06/2024 11:30 AM MANAGER LIGHTING Ancillary Procedure [facility] Card[facility] [address] [facility] [address] [place] [address] PAT (paroxysmal atrial tachycardia) (Primary Dx); Complete heart block (HCC); Cardiac pacemaker in situ; H/O syncope 05/05/[address] [facility]iology [address] [facility] [address], [place] [id number] Golden Guadalupe MD Cardiac pacemaker in situ (Primary Dx); Complete heart block (HCC); PAT (paroxysmal atrial tachycardia) 04/30/2024 10:40 AM MANAGER LIGHTING Office Visit [facility] Orthopaedic Surgery [address] [facility] 6th [place] [address] [place] [address] Elisabeth Mg MD Other closed fracture of shaft of right humerus with routine healing, subsequent encounter (Primary Dx) from Last 3 Months Allergies Active Allergy Reactions Criticality Noted Date Comments Codeine Vomiting Low 03/08/2022 Ferkztv-Lvd-Sge Reductase Inhibitors Diarrhea Low 01/03/2024 Medications metFORMIN XR (GLUCOPHAGE XR) 500 mg 24 hr tabletIndications:t ype 2 diabetes mellitus Take 3 tablets (1,500 mg total) by mouth daily with dinner 2 Active ezetimibe (ZETIA) 10 mg tabletIndications:h yperlipidemia Take 1 tablet (10 mg total) by mouth daily with dinner 2 Active alendronate (FOSAMAX) 70 mg tabletIndications:P ost-Menopausal Osteoporosis Take 1 tablet (70 mg total) by mouth every 7 days Saturday 2 Active biotin 10,000 mcg capsuleIndications: Biotin Deficiency Take 1 capsule (10,000 mcg total) by mouth every morning Active potassium citrate 99 mg capsuleIndications: supplement Take 1 capsule by mouth every morning Active LORazepam (ATIVAN) 0.5 mg tabletIndications:m yoclonus Take 2 tablets (1 mg total) by mouth every 4 (four) hours as needed (4 times per day for myoclonus) Taking 1/2 tablets 4 times per day - stopped taking when started on [place] 4 Active memantine XR (NAMENDA XR) 28 mg capsule,sprinkle,ER 24hrIndications:Mod erate to Severe Alzheimer's Type Dementia Take 1 capsule (28 mg total) by mouth every morning 4 Active sertraline (ZOLOFT) 50 mg tabletIndications:A nxiety with Depression Take 1 tablet (50 mg total) by mouth nightly 4 Active gabapentin (NEURONTIN) 100 mg capsule Take 2 capsules (200 mg total) by mouth 2 (two) times a day Active ondansetron ODT (ZOFRAN-ODT) 4 mg disintegrating tabletIndications:n ausea and vomiting while on pain medication Take 1 tablet (4 mg total) by mouth every 8 (eight) hours as needed for nausea or vomiting Patient has not taken 4 Active cholecalciferol 400 unit capsuleIndications: supplement for bone health Take 1 tablet/capsu le (400 Units total) by mouth daily With calcium Active HYDROcodone-acetami nophen (NORCO) 5-325 mg per tabletIndications:P ain Take 1-2 tablets by mouth every 4 (four) hours as needed for pain 42 tablet 4 Active senna-docusate (PERICOLACE) 8.6-50 mgIndications:const ipation Take 2 tablets by mouth 2 (two) times a day 60 tablet 4 Active Active Problems Problem Noted Date Diagnosed Date Painful orthopaedic hardware 04/07/2024 Closed fracture of shaft of right humerus 2023 H/O syncope 12/06/2022 PAT (paroxysmal atrial tachycardia) 12/06/2022 Sinus node dysfunction 08/01/2022 Complete heart block 08/01/2022 Cardiac pacemaker in situ 06/28/2022 Overview (07/04/2022): Medtronic [place] Dual Pacemaker. Dx; CHB, Syncope, PAF. DOI 06/28/2022-[facility]. [facility]. Carelink remote monitoring. Loop recorder was explanted. Visit for wound check 04/30/2022 Recurrent syncope 03/08/2022 Mixed diabetic hyperlipidemi a associated with type 2 diabetes mellitus 03/08/2022 Hypertension associated with diabetes 03/08/2022 Resolved Problems Problem Noted Date Diagnosed Date Resolved Date Status post placement of imp lantable loop recorder 05/03/2022 07/04/2022 Overview (05/03/2022): Medtronic LINQ22 Loop Recorder. Dx; Syncope, PAF. DOI 04/23/2022. Carelink remote. Social History Tobacco Use Types Packs/Day Years Used Date Smoking Tobacco: Never Smokeless Tobacco: Never Tobacco Cessation:Counseling Given: Not Answered AUDIT-C Answer Date Recorded Q1: How often do you have a drink containing alcohol? Never 04/07/2024 Q2: How many drinks containi ng alcohol do you have on a typical day when you are drinking? Patient does not drink Q3: How often do you have si x or more drinks on one occasion? Never 04/07/2024 Personal Safety Answer Date Recorded Have you ever been in or are you currently in a harmful physical or emotional relationship or is someone making you feel afraid or unsafe? Patient unable to answer 04/07/2024 Comments No Sex and Gender Information Value Date Recorded Sex Assigned at Not on file Legal Sex Female 6:05 PM MANAGER LIGHTING Gender Identity Not on file Sexual Orientation Not on file Last Filed Vital Signs Vital Sign Reading Time Taken Comments Blood Pressure 125/59 04/10/2024 8:20 AM MANAGER LIGHTING Pulse 84 04/10/2024 8:20 AM MANAGER LIGHTING Temperature 36.6 C (97.9 F) 04/10/2024 8:20 AM MANAGER LIGHTING Respiratory Rate 16 04/10/2024 8:20 AM MANAGER LIGHTING Oxygen Saturation 98% 04/10/2024 8:20 AM MANAGER LIGHTING Inhaled Oxygen Concentration - - Weight 51.3 kg (113 lb 1.5 oz) 04/07/2024 9:03 P M MANAGER LIGHTING Height 157.5 cm (5' 2 ) 04/07/2024 9:03 PM MANAGER LIGHTING Body Mass Index 20.69 04/07/2024 9:03 PM MANAGER LIGHTING Plan of Treatment Not on file Medical Devices Implanted Type Area Advanced Registered Nurse Device Identifier Shelf Expiration Date Model / Serial / Lot Pacemaker- [id number] Implanted:Qty: 1 on 06/28/2022 Pacemaker Left: Chest Wall Medtronic Synthes 3.5mm 2.9mm 24mm Self Tap Lock Stardrive Conical Head Pelvis T15 212.108 - [id number] Implanted:Qty: 2 on 04/07/2024 by Elisabeth Mg MD at [facility] Right: Humerus Synthes 212.108 / / Synthes 3.5mm 6mm 26mm 2.5mm Self Tap Small Hexagonal Socket Low Profile 204.826 - [id number] Implanted:Qty: 2 on 04/07/2024 by Elisabeth Mg MD at [facility] Right: Humerus Synthes 204.826 / / Synthes 3.5mm 2.9mm 22mm Self Tap Lock Stardrive Conical Head T15 Full 212.107 - [id number] Implanted:Qty: 1 on 04/07/2024 by Elisabeth Mg MD at [facility] Right: Humerus Synthes 212.107 / / Synthes 3.5mm 2.9mm 28mm Self Tap Lock Stardrive Conical Head T15 Full 212.110 - [id number] Implanted:Qty: 1 on 04/07/2024 by Elisabeth Mg MD at [facility] Right: Humerus Synthes 212.110 / / Synthes 3.5mm 2.9mm 46mm Self Tap Lock Stardrive Conical Head T15 Full 212.136 - [id number] Implanted:Qty: 2 on 04/07/2024 by Elisabeth Mg MD at [facility] Right: Humerus Synthes I 212.136 / / Synthes 3.5mm 2.9mm 42mm Self Tap Lock Stardrive Conical Head Full Thread 212.118 - [id number] Implanted:Qty: 2 on 04/07/2024 by Elisabeth Mg MD at [facility] Right: Humerus Synthes I 212.118 / / Synthes 2.7mm 5mm 24mm 2.5mm Self Tap Spherical Head Small Hexagonal 202.824 - [id number] Implanted:Qty: 2 on 04/07/2024 by Elisabeth Mg MD at [facility] Right: Humerus Synthes 202.824 / / Synthes 2.7mm 5mm 22mm 2.5mm Self Tap Spherical Head Small Hexagonal 202.822 - [id number] Implanted:Qty: 1 on 04/07/2024 by Elisabeth Mg MD at [facility] Right: Humerus Synthes 202.822 / / Synthes Lcp Combi Philos Long [id number] 8 Hole Shaft Lock Compression 241.921 - [id number] Implanted:Qty: 1 on 04/07/2024 by Elisabeth Mg MD at [facility] Right: Humerus Synthes I 241.921 / / Synthes 3.5mm 6mm 24mm 2.5mm Self Tap Small Hexagonal Socket Low Profile 204.824 - [id number] Implanted:Qty: 2 on 04/07/2024 by Elisabeth Mg MD at [facility] Right: Humerus Synthes 204.824 / / Synthes 3.5mm 2.9mm 26mm Self Tap Lock Stardrive Conical Head T15 Full 212.109 - [id number] Implanted:Qty: 2 on 04/07/2024 by Elisabeth Mg MD at [facility] Right: Humerus Synthes 212.109 / / Synthes 3.5mm 2.9mm 48mm Self Tap Lock Fix Angle Low Profile Pelvis Full 212.120 - [id number] Implanted:Qty: 1 on 04/07/2024 by Elisabeth Mg MD at [facility] Right: Humerus Synthes I 212.120 / / Synthes Lcp 12mm [id number] .7mm 7 Hole Collar 1/3 Tubular Plate Bone 241.371 - [id number] Implanted:Qty: 1 on 04/07/2024 by Elisabeth Mg MD at [facility] Right: Humerus Synthes 241.371 / / Synthes 3.5mm 6mm 22mm 2.5mm Self Tap Small Hexagonal Socket Low Profile 204.822 - [id number] Implanted:Qty: 2 on 04/07/2024 by Elisabeth Mg MD at [facility] Right: Humerus Synthes I 204.822 / / Procedures Procedure Name Priority Date/Time Associated Diagnosis Comments XR HUMERUS RIGHT 2 OR MORE VIEWS Schedule Routine, Read Routine (OP Routine) 06/18/2024 11:22 AM MANAGER LIGHTING Other closed fracture of shaft of right humerus with routine healing, subsequent encounter DEVICE CHECK - IN OFFICE Routine 05/06/2024 11:21 AM MANAGER LIGHTING Complete heart block (HCC) Cardiac pacemaker in situ H/O syncope EGFR STAT 04/08/2024 7:11 AM MANAGER LIGHTING LIPID PANEL STAT 04/08/2024 7:11 AM MANAGER LIGHTING POCT HEMOGLOBIN A1C Routine 04/06/2024 10:08 AM MANAGER LIGHTING from Last 3 Months or Most Recently Relevant to Health Maintenance Results * XR Humerus Right 2 or More Views (06/18/2024 11:22 AM MANAGER LIGHTING) Anatomical Region Laterality Modality Upper Extremities, Upper Arm Right Com puted Radiography 06/18/2024 11:5 6 AM MANAGER LIGHTING Impressions 06/18/2024 12:46 PM MANAGER LIGHTING 1. Interval reduction and internal fixation of right humeral shaft fracture. Dictated by: Charlie Loaiza MD PHD The radiology attending physician has personally reviewed this study, and had reviewed and/or edited this written report and agrees with it. Electronically signed by: Juve Gill M.D. Narrative 06/18/2024 12:46 PM MANAGER LIGHTING EXAMINATION: XR HUMERUS RIGHT 2 OR MORE VIEWS HISTORY: Right humerus fracture. FINDINGS: 3 exposures of the right humerus compared to 03/24/2024 Interval internal fixation for the healing reduced right humerus shaft fracture. No new fracture. Diffuse mild osteopenia. Procedure Note Juve Roberson MD - 06/18/2024 EXAMINATION: XR HUMERUS RIGHT 2 OR MORE VIEWS HISTORY: Right humerus fracture. FINDINGS: 3 exposures of the right humerus compared to 03/24/2024 Interval internal fixation for the healing reduced right humerus shaft fracture. No new fracture. Diffuse mild osteopenia. IMPRESSION: 1. Interval reduction and internal fixation of right humeral shaft fracture. Dictated by: Charlie Loaiza MD PHD The radiology attending physician has personally reviewed this study, and had reviewed and/or edited this written report and agrees with it. Electronically signed by: Juve Gill M.D. Elisabeth Mg MD IM XR PROCEDURES Final Result * DEVICE CHECK - IN OFFICE (05/06/2024 11:21 AM MANAGER LIGHTING) Anatomical Region Laterality Modality Other Narrative 05/07/2024 8:25 AM MANAGER LIGHTING Medtronic [place] Dual Pacemaker. Dx; CHB, Syncope, PAF. DOI 06/28/2022-[facility]. Carelink remote monitoring. ILR explanted. Supervising MD: Dr. Murray. Left pectoral incision well approximated without redness, drainage, or edema noted. Office DDD Pacemaker interrogation demonstrated appropriate device function. Appropriate lead measurements noted. Battery function-3.04V, 13.2 years remaining battery longevity to VIN. Presenting rhythm-ASVS (SR) 90 bpm. AP-0.2%, IMPORT/EXPORT FREIGHT FORWARDER-<0.1%. No mode switch episodes noted. 4 Fast A&V episodes noted, iegm's SVT, AT/AF, 2 minutes longest duration. 6 Ventricular high rate episodes noted, iegm's ST-SVT @ 154-174 bpm.. See scanned report. Medications; Zetia. Office pacemaker f/u 08/04/2025. Carelink remote f/u 08/12/2024. Isabelle Roldan RN [facility] Franki Guadalupe MD CV CARDIAC SERVICES PRO CEDURES Final Result * eGFR (04/08/2024 7:11 AM MANAGER LIGHTING) eGFR 90 >=60 mL/min/1. 73 m2 Comment: Interpretive Data Reference Interval Normal >/= 90 mL/min/1.73m2 Mildly decreased* 60 - 89 mL/min/1.73m2 Mildly to moderately decreased 45 - 59 mL/min/1.73m2 Moderately to severely decreased 30 - 44 mL/min/1.73m2 Severely decreased 15 - 29 mL/min/1.73m2 Kidney Failure < 15 mL/min/1.73m2 *Relative to young adult level Estimated glomerular filtration rate is determined by the 2020 CKD-EPI equation recommended by the National Kidney Foundation (A Unifying Approach to GFR Estimation: Recommendations of the NKF-ASK Task Force on Reassessing the Inclusion of Race in Diagnosing Kidney Disease, JASN 2020). The CKD-EPI equation should not be used for patients with unstable renal function and has not been validated in children and those over 70. Current interpretive data was last reviewed 2021. Blood 04/08/2024 7:11 AM MANAGER LIGHTING 04/08/2024 7:21 AM MANAGER LIGHTING Elisabeth Mg MD LAB BLOOD ORDERABL ES Final Result EMIR [facility] Department [place] [address] * (ABNORMAL) Lipid panel (04/08/2024 7:11 AM MANAGER LIGHTING) Cholesterol 93 30 - 199 mg/dL Comment: Interpretive Data Ages < or = 19 years Acceptable: <170 mg/dL Borderline high: 170-199 mg/dL High: >or= 200 mg/dL Ages > or = 20 years Desirable: <200 mg/dL Borderline high: 200-239 mg/dL High: >or= 240 mg/dL Literature References: 1. Expert Panel on Integrated Guidelines for Cardiovascular Health and Risk Reduction in Children and Adolescents. Pediatrics 2011;128:S213 2. NCEP Expert Panel. Circulation 2004;110:227 Current Interpretive Data was last revised on 2018. Triglycerides 80 <=149 mg/dL EMIR GARCIA Comment: Interpretive Data Ages < or = 9 years Acceptable: <75 mg/dL Borderline high: 75-99 mg/dL High: >or= 100 mg/dL Ages 10 to 20 years Acceptable: <90 mg/dL Borderline high: 90-129 mg/dL High: >or= 130 mg/dL Ages > or = 20 years Desirable: <150 mg/dL Borderline high: 150-199 mg/dL High: 200-499 mg/dL Very high: >or= 499 mg/dL Literature References: 1. Expert Panel on Integrated Guidelines for Cardiovascular Health and Risk Reduction in Children and Adolescents. Pediatrics 2011;128:S213 2. NCEP Expert Panel. Circulation 2004;110:227 Current Interpretive Data was last revised on 2018. HDL 39(L) >=40 mg/dL EMIR GARCIA Comment: Interpretive Data Ages < or = 19 years Acceptable: >45 mg/dL Borderline low: 40-45 mg/dL Low: <40 mg/dL Ages > or = 20 years Desirable: >or= 60 mg/dL Low: <40 mg/dL Literature References: 1. Expert Panel on Integrated Guidelines for Cardiovascular Health and Risk Reduction in Children and Adolescents. Pediatrics 2011;128:S213 2. NCEP Expert Panel. Circulation 2004;110:227 Current Interpretive Data was last revised on 2018. LDL, calculated 38 <=129 mg/dL EMIR GARCIA Comment: Interpretive Data Ages < or = 19 years Acceptable: <110 mg/dL Borderline high: 110-129 mg/dL High: >or= 130 mg/dL Ages > or = 20 years Optimal: <100 mg/dL Near optimal: 100-129 mg/dL Borderline high: 130-159 mg/dL High: >160 mg/dL Calculated using the Tomas LDL-C estimating equation. This equation was implemented on 2024. Prior to this date LDL-C was estimated using the Friedewald equation. Literature References: 1. Expert Panel on Integrated Guidelines for Cardiovascular Health and Risk Reduction in Children and Adolescents. Pediatrics 2011;128:S213 2. NCEP Expert Panel. Circulation 2004;110:227 3. Tomas Shipman et al. GREG Cardiol. 2019September 17;5(5):540-548. doi: 10.1001/jamacardio.2020.0013 Current Interpretive Data was last revised on 2024. Non-HDL Cholesterol 54 mg/dL EMIR GARCIA Comment: Interpretive Data Ages < or = 19 years Acceptable: <120 mg/dL Borderline high: 120-144 mg/dL High: >145 mg/dL Ages > or = 20 years When triglycerides are >200 mg/dL, Non-HDL cholesterol is a secondary target of therapy with treatment goals that are 30 mg/dL greater than the LDL cholesterol target. Literature References: 1. Expert Panel on Integrated Guidelines for Cardiovascular Health and Risk Reduction in Children and Adolescents. Pediatrics 2011;128:S213 2. NCEP Expert Panel. Circulation 2004;110:227 Current Interpretive Data was last revised on 2018. Chol/HDL ratio 2 EMIR GARCIA Blood 04/08/2024 7:11 AM MANAGER LIGHTING 04/08/2024 7:21 AM MANAGER LIGHTING Elisabeth Mg MD LAB BLOOD ORDERABL ES Final Result EMIR GARC[facility] Department [place] [address] * POCT hemoglobin A1c (04/06/2024 10:08 AM MANAGER LIGHTING) Hgb A1C, POC 5.5 4.0 - 5.6 % Est Average Gluc POC 111 mg/dL EMIR SHARMA Comment: The ADA recommends reporting an estimated Average Glucose (eAG) with all Hemoglobin A1c results using the equation derived from a study of 507 normal and diabetic adults. Minority populations were underrepresented and children were not included. (Diabetes Care 31:0083-0673, 2008). The eAG is not equivalent to a fasting glucose. Blood 04/06/2024 10:0 8 AM MANAGER LIGHTING 04/06/2024 10:08 AM MANAGER LIGHTING Elisabeth Mg MD POINT OF CARE TEST ORDERABLES Final Result [facility] Department [place] [address] from Last 3 Months or Most Recently Relevant to Health Maintenance Insurance MEDICARE [facility] MEDICARE MEDICARE [facility] Advance Directives For more information, please contact: [phone] * Full Code (Latest Code Status on File) Date Activated Date Inactivated Comments 04/07/2024 5:54 PM 04/10/2024 6:36 PM Care Teams Flight Kitchen Manager Relationship Specialty Start Date End Date Candy August MD PCP - General Family Medicine 01/30/22
--- OUTSIDE RECORDS SUMMARY | 2024-07-27 20:26 | XMS_ITS | Clinical Summary ---
Author Organization [facility] [place] [address] Address [address] [place] [address] Care Team Providers Care Technical Operations Manager Name Role Phone Candy August MD Primary Care Provider [phone] Allergies Active Allergy Reactions Criticality Noted Date Comments Codeine Vomiting Low 03/08/2022 Rgjqqbs-Yts-Juw Reductase Inhibitors Diarrhea Low 01/03/2024 Medications metFORMIN [...] day - stopped taking when started on [place] 4 Active memantine XR (NAMENDA XR) 28 [...] pacemaker in situ 06/28/2022 Overview (07/04/2022): Medtronic Analilia Dual Pacemaker. Dx; CHB, Syncope, PAF. DOI 06/28/2022-[facility]. [place]. Carelink remote monitoring. Loop recorder was explanted. Visit for wound check 04/30/2022 Recurrent syncope 03/08/2022 Mixed diabetic hyperlipidemi a associated with type 2 diabetes mellitus 03/08/2022 Hypertension associated with diabetes 03/08/2022 Resolved Problems Problem Noted Date Diagnosed Date Resolved Date Status post placement of imp lantable loop recorder 05/03/2022 07/04/2022 Overview (05/03/2022): Medtronic LINQ22 Loop Recorder. Dx; Syncope, PAF. DOI 04/23/2022. Carelink remote. Encounters Date Type Department Care Team Description 06/18/2024 11:20 AM FURNITURE DELIVERY DRIVER Office Visit [facility] Orthopaedic Surgery [address] [facility] [address] 6th [place] [address] [place] [address] Elisabeth Mg MD Other closed fracture of shaft of right humerus with routine healing, subsequent encounter (Primary Dx) 06/18/2024 11:00 AM FURNITURE DELIVERY DRIVER - 06/18/2024 11:59 PM FURNITURE DELIVERY DRIVER Hospital Encounter [facility] [address] [place] [id number] Elisabeth Mg MD Other closed fracture of shaft of right humerus with routine healing, subsequent encounter Discharge Disposition: Discharge to home or self care 05/06/2024 11:30 AM FURNITURE DELIVERY DRIVER Ancillary Procedure [facility] Card[facility] [address] [place] [address] PAT (paroxysmal atrial tachycardia) (Primary Dx); Complete heart block (HCC); Cardiac pacemaker in situ; H/O syncope 05/05/2024 Orders Only [facility] [address] [facility] [address] [place] [phone] Golden Guadalupe MD Cardiac pacemaker in situ (Primary Dx); Complete heart block (HCC); PAT (paroxysmal atrial tachycardia) 04/30/2024 10:40 AM FURNITURE DELIVERY DRIVER Office Visit [facility] Orthopaedic Surgery [facility] 6th [place] [address] [place] [address] Elisabeth Mg MD Other closed fracture of shaft of right humerus with routine healing, subsequent encounter (Primary Dx) from Last 3 Months Surgical History Surgery Date Site/Laterality Comments HYSTERECTOMY TONSILLECTOMY AND ADENOIDECTOMY WISDOM TOOTH EXTRACTION Medical History Medical History Date Comments Diabetes mellitus (HCC) Syncope Hyperlipidemia Back pain Osteopenia after menopause Hypertension Postoperative delirium a little lost after surgery Family History Medical History Relation Name Comments Diabetes Father Heart attack Father Hypertension Father Alzheimer's disease Mother Heart failure Mother Malig Hyperthermia Neg Hx Pseudochol deficiency Neg Hx Relation Name Status Comments Father Mother Social History Tobacco Use Types Packs/Day Years [...] on file Legal Sex Female 6:05 PM FURNITURE DELIVERY DRIVER Gender Identity Not on file Sexual Orientation Not on file Obstetrics History Last Filed Vital Signs Vital Sign Reading Time Taken Comments Blood Pressure 125/59 04/10/2024 8:20 AM FURNITURE DELIVERY DRIVER Pulse 84 04/10/2024 8:20 AM FURNITURE DELIVERY DRIVER Temperature 36.6 C (97.9 F) 04/10/2024 8:20 AM FURNITURE DELIVERY DRIVER Respiratory Rate 16 04/10/2024 8:20 AM FURNITURE DELIVERY DRIVER Oxygen Saturation 98% 04/10/2024 8:20 AM FURNITURE DELIVERY DRIVER Inhaled Oxygen Concentration - - Weight 51.3 kg (113 lb 1.5 oz) 04/07/2024 9:03 P M FURNITURE DELIVERY DRIVER Height 157.5 cm (5' 2 ) 04/07/2024 9:03 PM FURNITURE DELIVERY DRIVER Body Mass Index 20.69 04/07/2024 9:03 PM FURNITURE DELIVERY DRIVER Plan of Treatment Health Maintenance Due Date Last Done Comments Albumin Creatinine Ratio, Urine 1944 Depression Screening 1944 Hepatitis C Screening 1944 Osteoporosis Screening-Bone Density Scan 1944 Dilated Eye Exam 1944 Foot Exam 1944 Hepatitis B Screening 1962 Zoster Vaccine (1 of 2) 1994 Well Visit 65+ 2009 DTaP/Tdap/Td Vaccine (1 - Tdap) 07/28/2016 07/27/2016, 04/28/2007, 02/06/1996 Covid-19 Vaccine (4 - 2023-2 5 season) 2024 03/06/2021, 08/07/2020, 07/17/2020 Influenza Vaccine (#1) 2024 , 02/15/2020, 03/02/2019, Additional history exists Hemoglobin A1C 10/04/2024 04/06/2024 Lipid Panel 04/08/2025 04/08/2024, 06/20, 03/08/2022 eGFR 04/08/2025 04/08/2024, 03/20, 04/22/2023 Fall Risk Assessment 04/10/2025 04/10/2024 Pneumococcal vaccine 65+ Completed 05/04/2015, 03/21 Medical Devices Implanted Type Area Petrophysicist Device Identifier Shelf Expiration Date Model / Serial / Lot Pacemaker- [id number] Implanted:Qty: 1 on 06/28/2022 Pacemaker Left: Chest Wall Medtronic Synthes 3.5mm 2.9mm 24mm Self Tap Lock Stardrive Conical Head Pelvis T15 212.108 - [id number] Implanted:Qty: 2 on 04/07/2024 by Elisabeth Mg MD at [facility] Right: Humerus Synthes 212.108 / / Synthes 3.5mm 6mm 26mm 2.5mm Self Tap Small Hexagonal Socket Low Profile 204.826 - [id number] Implanted:Qty: 2 on 04/07/2024 by Elisabeth Mg MD at [facility] Right: Humerus Synthes 204.826 / / Synthes 3.5mm 2.9mm 22mm Self Tap Lock Stardrive Conical Head T15 Full 212.107 - [id number] Implanted:Qty: 1 on 04/07/2024 by Elisabeth Mg MD at [facility] Right: Humerus Synthes 212.107 / / Synthes 3.5mm 2.9mm 28mm Self Tap Lock Stardrive Conical Head T15 Full 212.110 - [id number] Implanted:Qty: 1 on 04/07/2024 by Elisabeth Mg MD at [facility] Right: Humerus Synthes 212.110 / / Synthes 3.5mm 2.9mm 46mm Self Tap Lock Stardrive Conical Head T15 Full 212.136 - [id number] Implanted:Qty: 2 on 04/07/2024 by Elisabeth gM MD at [facility] Right: Humerus Synthes I 212.136 / / Synthes 3.5mm 2.9mm 42mm Self Tap Lock Stardrive Conical Head Full Thread 212.118 - [id number] Implanted:Qty: 2 on 04/07/2024 by Elisabeth Mg MD at [facility] Right: Humerus Synthes I 212.118 / / Synthes 2.7mm 5mm 24mm 2.5mm Self Tap Spherical Head Small Hexagonal 202.824 - [id number] Implanted:Qty: 2 on 04/07/2024 by Elisabeth Mg MD at [facility] Right: Humerus Synthes 202.824 / / Synthes 2.7mm 5mm 22mm 2.5mm Self Tap Spherical Head Small Hexagonal 202.822 - [id number] Implanted:Qty: 1 on 04/07/2024 by Elisabeth Mg MD at [facility] Right: Humerus Synthes 202.822 / / Synthes Lcp Combi Philos Long [id number] 8 Hole Shaft Lock Compression 241.921 - [id number] Implanted:Qty: 1 on 04/07/2024 by Elisabeth Mg MD at [facility] Right: Humerus Synthes I 241.921 / / Synthes 3.5mm 6mm 24mm 2.5mm Self Tap Small Hexagonal Socket Low Profile 204.824 - [id number] Implanted:Qty: 2 on 04/07/2024 by Elisabeth Mg MD at [facility] Right: Humerus Synthes 204.824 / / Synthes 3.5mm 2.9mm 26mm Self Tap Lock Stardrive Conical Head T15 Full 212.109 - [id number] Implanted:Qty: 2 on 04/07/2024 by Elisabeth Mg MD at [facility] Right: Humerus Synthes 212.109 / / Synthes 3.5mm 2.9mm 48mm Self Tap Lock Fix Angle Low Profile Pelvis Full 212.120 - [id number] Implanted:Qty: 1 on 04/07/2024 by Elisabeth Mg MD at [facility] Right: Humerus Synthes I 212.120 / / Synthes Lcp 12mm [id number] .7mm 7 Hole Collar 1/3 Tubular Plate Bone 241.371 - [id number] Implanted:Qty: 1 on 04/07/2024 by Elisabeth Mg MD at [facility] Right: Humerus Synthes 241.371 / / Synthes 3.5mm 6mm 22mm 2.5mm Self Tap Small Hexagonal Socket Low Profile 204.822 - [id number] Implanted:Qty: 2 on 04/07/2024 by Elisabeth Mg MD at [facility] Right: Humerus Synthes I 204.822 / / Procedures Procedure Name Priority Date/Time Associated Diagnosis Comments XR HUMERUS RIGHT 2 OR MORE VIEWS Schedule Routine, Read Routine (OP Routine) 06/18/2024 11:22 AM FURNITURE DELIVERY DRIVER Other closed fracture of shaft of right humerus with routine healing, subsequent encounter DEVICE CHECK - IN OFFICE Routine 05/06/2024 11:21 AM FURNITURE DELIVERY DRIVER Complete heart block (HCC) Cardiac pacemaker in situ H/O syncope EGFR STAT 04/08/2024 7:11 AM FURNITURE DELIVERY DRIVER LIPID PANEL STAT 04/08/2024 7:11 AM FURNITURE DELIVERY DRIVER POCT HEMOGLOBIN A1C Routine 04/06/2024 10:08 AM FURNITURE DELIVERY DRIVER from Last 3 Months or Most Recently Relevant to Health Maintenance Results * XR Humerus Right 2 or More Views (06/18/2024 11:22 AM FURNITURE DELIVERY DRIVER) Anatomical Region Laterality Modality Upper Extremities, Upper Arm Right Com puted Radiography 06/18/2024 11:5 6 AM FURNITURE DELIVERY DRIVER Impressions 06/18/2024 12:46 PM FURNITURE DELIVERY DRIVER 1. Interval reduction and internal fixation of right humeral shaft fracture. Dictated by: Charlie Loaiza MD PHD The radiology attending physician has personally reviewed this study, and had reviewed and/or edited this written report and agrees with it. Electronically signed by: Juve Gill M.D. Narrative 06/18/2024 12:46 PM FURNITURE DELIVERY DRIVER EXAMINATION: XR HUMERUS RIGHT 2 OR MORE [...] by: Juve Gill M.D. Elisabeth Mg MD IMG XR PROCEDURES Final Result * DEVICE CHECK - IN OFFICE (05/06/2024 11:21 AM FURNITURE DELIVERY DRIVER) Anatomical Region Laterality Modality Other Narrative 05/07/2024 8:25 AM FURNITURE DELIVERY DRIVER Medtronic Analilia Dual Pacemaker. Dx; CHB, Syncope, PAF. DOI 06/28/2022-[facility]. [facility] ILR explanted. Supervising MD: Dr. Murray. Left pectoral incision well approximated without redness, drainage, or edema noted. Office DDD Pacemaker interrogation demonstrated appropriate device function. Appropriate lead measurements noted. Battery function-3.04V, 13.2 years remaining battery longevity to VIN. Presenting rhythm-ASVS (SR) 90 bpm. AP-0.2%, SETUP OPERATOR-<0.1%. No mode switch episodes noted. 4 Fast A&V episodes noted, iegm's SVT, AT/AF, 2 minutes longest duration. 6 Ventricular high rate episodes noted, iegm's ST-SVT @ 154-174 bpm.. See scanned report. Medications; Zetia. Office pacemaker f/u 08/04/2025. Carelink remote f/u 08/12/2024. Isabelle Roldan RN us Golden Guadalupe MD [facility] PRO CEDURES Final Result * eGFR (04/08/2024 7:11 AM FURNITURE DELIVERY DRIVER) eGFR 90 >=60 mL/min/1. 73 m2 Comment: [...] of Race in Diagnosing Kidney Disease, JASN 202). The CKD-EPI equation should not be used for patients with unstable renal function and has not been validated in children and those over 70. Current interpretive data was last reviewed 2021. Blood 04/08/2024 7:11 AM FURNITURE DELIVERY DRIVER 04/08/2024 7:21 AM FURNITURE DELIVERY DRIVER Elisabeth Mg MD LAB BLOOD ORDERABL ES Final Result [facility] Department [place] [address] * (ABNORMAL) Lipid panel (04/08/2024 7:11 AM FURNITURE DELIVERY DRIVER) Cholesterol 93 30 - 199 mg/dL Comment: [...] revised on 2018. Triglycerides 80 <=149 mg/dL [facility] Comment: Interpretive Data Ages < or = [...] revised on 2018. HDL 39(L) >=40 mg/dL [facility] Comment: Interpretive Data Ages < or = [...] on 2018. LDL, calculated 38 <=129 mg/dL [facility] Comment: Interpretive Data Ages < or = [...] 3. Tomas Shipman et al. GREG Cardiol. 2020 September 17;5(5):540-548. doi: [email or web address] Current Interpretive Data was last revised on 2024. Non-HDL Cholesterol 54 mg/dL [facility] Comment: Interpretive Data Ages < or = [...] revised on 2018. Chol/HDL ratio 2 [facility] Blood 04/08/2024 7:11 AM FURNITURE DELIVERY DRIVER 04/08/2024 7:21 AM FURNITURE DELIVERY DRIVER Elisabeth Mg MD LAB BLOOD ORDERABL ES Final Result [facility] Department [place] [address] * POCT hemoglobin A1c (04/06/2024 10:08 AM FURNITURE DELIVERY DRIVER) Hgb A1C, POC 5.5 4.0 - 5.6 % Est Average Gluc POC 111 mg/dL [facility] Comment: The ADA recommends reporting an estimated Average Glucose (eAG) with all Hemoglobin A1c results using the equation derived from a study of 507 normal and diabetic adults. Minority populations were underrepresented and children were not included. (Diabetes Care 31:6766-7643, 2008). The eAG is not equivalent to a fasting glucose. Blood 04/06/2024 10:0 8 AM FURNITURE DELIVERY DRIVER 04/06/2024 10:08 AM FURNITURE DELIVERY DRIVER Elisabeth Mg MD POINT OF CARE TEST ORDERABLES Final Result Performing Organization Address City/State/[facility] Co de Phone Number [facility] Department [place] [address] from Last 3 Months or Most Recently Relevant to Health Maintenance Insurance MEDICARE [facility] MEDICARE MEDICARE [facility] Advance Directives For more information, please contact: [phone] * Full Code (Latest Code Status on File) Date Activated Date Inactivated Comments 04/07/2024 5:54 PM 04/10/2024 6:36 PM Care Teams Technical Operations Manager Relationship Specialty Start Date End Date Candy August MD PCP - General Family Medicine 01/30/22
--- OUTSIDE RECORDS SUMMARY | 2024-07-27 20:26 | XMS_ITS | Clinical Summary ---
Author Organization [facility] Address [address] [place] [address] Care Team Providers Care Chief Maintenance Supervisor Name Role Phone Candy August MD Primary Care Provider [phone] Social History Tobacco Use Types Packs/Day Years Used Date Smoking Tobacco: Never Assessed Comments Unknown Sex and Gender Information Value Date Recorded Sex Assigned at Not on file Legal Sex Female 5:23 PM CDT Gender Identity Not on file Sexual Orientation Not on file Plan of Treatment Health Maintenance Due Date Last Done Comments Hepatitis C 1962 DTaP, Tdap and Td Vaccines ( 1 - Tdap) 08/28/1963 Zoster Vaccines (1 of 2) 1994 Annual Medicare Wellness Visit 2009 Dexa Scan (General) 2009 Pneumococcal Vaccine: 65+ Ye ars (1 of 1 - PCV) 2009 RSV Immunization or 60+ Years (1 - 1-dose 75+ series) 08/28/2019 COVID-19 Vaccine ( - 2023-2 5 season) 2024 Influenza Adult (#1) 2024 Meningococcal B Vaccine Aged Out No l onger eligible based on patient's age to complete this topic Meningococcal Vaccine Aged Out No carlo kenny eligible based on patient's age to complete this topic RSV Immunizations Under 20 Months Aged Out No longer eligible based on patient's age to complete this topic Medical Devices Implanted Type Area Machine Pecan Gatherer Device Identifier Shelf Expiration Date Model / Serial / Lot Ra Lead-06/28/2022 Implanted:Qty: 1 on 06/28/2022 by Kelsie Ulrich MD Lead Implant Right: Atrium MEDTRONIC CARDIAC RHYTHM AND HEART FAILURE - DIV M 5076-45 / [id number] / Rv Lead-06/28/2022 Implanted:Qty: 1 on 06/28/2022 by Kelsie Ulrich MD Lead Implant Right: Ventricle MEDTRONIC CARDIAC RHYTHM AND HEART FAILURE - DIV M 5076-52 / [id number] / Pacemaker-2022 Implanted:Qty: 1 on 06/28/2022 by Kelsie Ulrich MD Pacemaker Chest [employer]TRONIC CARDIAC RHYTHM AND HEART FAILURE - DIV M [id number] / [id number] / Description:MRI Conditional under following conditions: Static magnetic field of 1.5 T or 3 T, Max spatial gradient field of 2000 Gauss/cm or less, Max slew rate 200 T/m/s, 1.5 T whole body ALINA of 2 W /kg or less in Normal operating mode , Head ALINA 3.2 W/kg or less, 3T B1+MONO must be 2.8 mT or less for isocenter inferior to C7, Scans can be performed without B1+MONO restriction at 3T when isocenter is at or superior to C7 (4W/kg or less whole body) Insurance MEDICARE [facility] Care Teams Chief Maintenance Supervisor Relationship Specialty Start Date End Date Candy August MD [address] [place] [address] PCP - General FAMILY PRACTICE 06/05/23
--- OUTSIDE RECORDS SUMMARY | 2024-07-27 20:26 | XMS_ITS | Patient Health Summary ---
Author Organization [facility] Address [address] [place] [address] Care Team Providers Care Eyelet Cutter Name Role Phone Unknown, Provider Primary Care Provider Unavaila ble Note from [facility],non-owned Affiliates and Associated Physician Practices is amultiple site organization consisting of ambulatory clinics and hospital sitesin [place], [place], [place] and [place]. This disclosure is being madepursuant to the Care Everywhere program and may not contain all information available regarding this patient. Last updated 18.[facility] Allergies * Codeine(Vomiting) -Low Criticality Medications * Be aware that medications may not be up to date on this document. Alwaysverify current medications with the patient. * Multiple Vitamins-Minerals (MULTIVITAMIN ADULTS 50+ PO) Take 1 tablet by mouth once daily * Multiple Vitamins-Minerals (PreserVision AREDS 2) capsule * omega 3 (Fish Oil) 1200 MG capsule 1 (one) capsule * Biotin 10 MG * Chromium-Cinnamon 100-500 MCG-MG * donepezil (Aricept) 5 MG tablet(Started 11/21/2022) Take 1 (one) tablet by mouth at bedtime * lisinopril (Prinivil; Zestril) 5 MG tablet(Started 08/01/2022) Take 1 (one) tablet by mouth once daily * Potassium Citrate,Elemental K, 99 MG CAPS Take 1 capsule by mouth once daily * alendronate (Fosamax) 70 MG tablet Take 1 (one) tablet by mouth every 7 days before meal Take in morning with full glass of water on empty stomach and remain upright for 30 min * ezetimibe (Zetia) 10 MG tablet Take 1 (one) tablet by mouth once daily * metFORMIN (Glucophage) 500 MG tablet Take 3 (three) tablets by mouth once daily in evening * gabapentin (Neurontin) 100 MG capsule Take 2 (two) capsules by mouth 2 times daily * Multiple Minerals-Vitamins (zcmkndm-ixgfzomkc-chpw-D3) TABS tablet Take by mouth once daily * LORazepam (Ativan) 0.5 MG tablet TAKE 1 TABLET BY MOUTH THREE TIMES DAILY FOR MYOCLONUS. HOLD IF EXCESSIVELY DROWSY DURING THE DAYTIME. MAY INCREASE UP TO 3 TIMES A DAY IF NECESSARY. 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 Shelf Expiration Date Model / Serial / Lot Ra Lead [employer] 5076-45 / [id number] / Rv Lead [employer] 5076-52 / [id number] / Pacemaker-2/9/202 3 Implanted: 023 (Quantity not on file) [employer] [id number] / [id number] / Description:[id number] [place] XT DR MARTIN Jaraimllo- MRI conditional to 1.5T or 3T- 07/17/23 RA 5076-45 5076-52 Procedures * LAB MISC TEST (NOT BLOOD)(Performed 08/16/2023) Performed for Dementia, unspecified dementia severity, unspecified dementia type, unspecified whether behavioral, psychotic, or mood disturbance or anxiety (HCC) * PARANEOPLASTIC AUTOANTIBODY EVAL CSF(Performed 08/16/2023) Performed for Dementia, unspecified dementia severity, unspecified dementia type, unspecified whether behavioral, psychotic, or mood disturbance or anxiety (HCC) * PROTEIN CSF(Performed 08/16/2023) Performed for Dementia, unspecified dementia severity, unspecified dementia type, unspecified whether behavioral, psychotic, or mood disturbance or anxiety (HCC) * GLUCOSE CSF(Performed 08/16/2023) Performed for Dementia, unspecified dementia severity, unspecified dementia type, unspecified whether behavioral, psychotic, or mood disturbance or anxiety (HCC) * VARICELLA ZOSTER PCR(Performed 08/16/2023) Performed for Dementia, unspecified dementia severity, unspecified dementia type, unspecified whether behavioral, psychotic, or mood disturbance or anxiety (HCC) * MENINGITIS/ENCEPHALITIS PANEL CSF(Performed 08/16/2023) Performed for Dementia, unspecified dementia severity, unspecified dementia type, unspecified whether behavioral, psychotic, or mood disturbance or anxiety (HCC) * PRION MARKERS (CJD) CSF(Performed 08/16/2023) Performed for Dementia, unspecified dementia severity, unspecified dementia type, unspecified whether behavioral, psychotic, or mood disturbance or anxiety (HCC) * LAB MISC TEST(Performed 08/16/2023) Performed for Dementia, unspecified dementia severity, unspecified dementia type, unspecified whether behavioral, psychotic, or mood disturbance or anxiety (HCC) * ANGIOTENSIN CONVERTING ENZYME CSF(Performed 08/16/2023) Performed for Dementia, unspecified dementia severity, unspecified dementia type, unspecified whether behavioral, psychotic, or mood disturbance or anxiety (HCC) * HERPES SIMPLEX 1+2 PCR CSF(Performed 08/16/2023) Performed for Dementia, unspecified dementia severity, unspecified dementia type, unspecified whether behavioral, psychotic, or mood disturbance or anxiety (HCC) * CULTURE CSF+GRAM STAIN(Performed 08/16/2023) Performed for Dementia, unspecified dementia severity, unspecified dementia type, unspecified whether behavioral, psychotic, or mood disturbance or anxiety (HCC) * CELL COUNT W DIFFERENTIAL CSF(Performed 08/16/2023) Performed for Dementia, unspecified dementia severity, unspecified dementia type, unspecified whether behavioral, psychotic, or mood disturbance or anxiety (HCC) * FL LUMBAR PUNCTURE(Performed 08/16/2023) Performed for Dementia, unspecified dementia severity, unspecified dementia type, unspecified whether behavioral, psychotic, or mood disturbance or anxiety (HCC) * MRI BRAIN WWO CONTRAST(Performed 08/16/2023) Performed for Dementia, unspecified dementia severity, unspecified dementia type, unspecified whether behavioral, psychotic, or mood disturbance or anxiety (HCC) * CREATININE - POCT INTERFACED(Performed 08/16/2023) * ENDOTRACHEAL TUBE NOTE(Performed 08/16/2023) * GLUCOSE - POINT OF CARE(Performed 08/16/2023) Results * PARANEOPLASTIC AUTOANTIBODY EVAL CSF (08/16/2023 4:52 PM CDT) Pathologist [facility] See Scanned Document 09/04/2023 11:58 AM CDT [facility] RE[facility] NON INTERF Cerebral spinal fluid CEREBROSPINAL FLUID SPECIMEN / Unknown Collection / Unknown 08/16/2023 4:52 PM CDT 08/16/2023 5:20 PM CDT Judy Camacho MD LAB - BODY FLUID ORD ERABLES [facility] REF [facility] NON INTERF [address] [place] [address], [facility] [phone] * MENINGITIS/ENCEPHALITIS PANEL CSF (08/16/2023 4:52 PM CDT) Pathologist [facility] Escherichia coli K1 Not detected Not detected 08/16/2023 8:56 PM CDT [facility] Haemophilus influenzae Not detected Not detected 08/16/2023 8:56 PM CD[address] [facility] Listeria monocytogenes Not detected Not detected 08/16/2023 8:56 PM CDT [facility] Neisseria meningitis Not detected Not detected 08/16/2023 8:56 PM CDT [facility] Streptococcus agalactiae (Group B) Not detected Not detected 08/16/2023 8:56 PM CD[address] [facility] Streptococcus pneumoniae Not detected Not detected 08/16/2023 8:56 PM CDT [facility] Cytomegalovirus Not detected Not detected 08/16/2023 8:56 PM CDT [facility] Enterovirus Not detected Not detected 08/16/2023 8:56 PM CDT [facility] Herpes simplex Virus 1 Not detected Not detected 08/16/2023 8:56 PM CDT [facility] Herpes simplex Virus 2 Not detected Not detected 08/16/2023 8:56 PM CDT [facility] Human Herpesvirus 6 Not detected Not detected 08/16/2023 8:56 PM CDT [facility] Human Parechovirus Not detected Not detected 08/16/2023 8:56 PM CDT [facility] Varicella zoster Virus Not detected Not detected 08/16/2023 8:56 PM CDT [facility] Cryptococcus neoformans/gattii Not detected Not detected 08/16/2023 8:56 PM CD[address] [facility] Cerebral spinal fluid CEREBROSPINAL FLUID SPECIMEN / Unknown Collection / Unknown 08/16/2023 4:52 PM CDT 08/16/2023 4:52 PM CDT Narrative [facility] - 08/16/2023 8:56 PM CDT Meningitis/Encephalitis PCR CSF Panel performed by [employer] multiplex PCR. A negative FilmArray ME Panel result does not exclude the possibility of CORPORATE STRATEGY ASSOCIATE infection and should not be used as the sole basis for diagnosis, treatment, or other management decisions. The FilmArray ME Panel is intended to be used in conjunction with the standard of care CSF Gram stain and culture for organism recovery and is not a substitute for these tests. Test results should be interpreted in the context of patient presentation and other laboratory information. Judy Camacho MD LAB - MICROBIOLOGY O RDERABLES [facility] [address] [place] [address], [facility] [phone] * LAB MISC TEST (NOT BLOOD) (08/16/2023 4:52 PM CDT) Test Name Alzheimer's Disease Evaluation 08/28/2023 12:06 PM CDT [facility] RE[facility] NON INTERF Test Result See Scanned Report 08/28/2023 12:06 PM CDT [facility] NON INTERF Comment Ref Lab naik 08/28/2023 12:06 PM CDT [facility] NON INTERF Other CEREBROSPINAL FLUID SPECIMEN / Unknown Collection / Unknown 08/16/2023 4:52 PM CDT 08/19/2023 10:55 AM CDT Keyanna Pantoja LAB - BODY FLUID ORD ERABLES Performing Organization Address City/[facility]/ZIP Co de Phone Number [facility] REF LAB NON INTERF [address] [place] [address], [facility] [phone] * VARICELLA ZOSTER PCR (08/16/2023 4:52 PM CDT) Pathologist [facility] Varicella zoster Virus PCR Not Detected 08/18/2023 6:36 AM CDT [facility] ([facility]) Comment: NOT DETECTED - A negative result does not rule out the presence of PCR inhibitors in the patient specimen or assay specific nucleic acid in concentrations below the level of detection by the assay. INTERPRETIVE INFORMATION: Varicella-Zoster Virus by PCR This test was developed and its performance characteristics determined by [employer]. It has not been cleared or approved by the US Food and Drug Administration. This test was performed in a CLIA certified laboratory and is intended for clinical purposes. Performed By: [facility] [address] [place] [id number] Technical Healthcare Consultant: Chito Lebron MD, PhD CLIA Number: [id number] Varicella zoster Virus Source CSF 08/18/2023 6:36 AM CDT [facility]) Cerebral spinal fluid CEREBROSPINAL FLUID SPECIMEN / Unknown Collection / Unknown 08/16/2023 4:52 PM CDT 08/16/2023 4:52 PM CDT Judy Camacho MD LAB - MICROBIOLOGY O RDERABLES [facility] ([facility]) [address] [place] [address], [facility] * (ABNORMAL) PROTEIN CSF (08/16/2023 4:52 PM CDT) Protein CSF 70(H) 15 - 45 mg/dL 08/16/2023 5:26 PM CDT [facility] Cerebral spinal fluid CEREBROSPINAL FLUID SPECIMEN / Unknown 08/16/2023 4:52 PM CDT 08/16/2023 5:12 PM CDT Judy Camacho MD LAB - BODY FLUID ORD ERABLES Performing Organization Address City/[facility]/ZIP Co de Phone Number [facility] [address] [place] [phone], [place] [phone] * (ABNORMAL) GLUCOSE CSF (08/16/2023 4:52 PM CDT) Glucose CSF 73(H) 40 - 70 mg/dL 08/16/2023 5:26 PM CDT [facility] Cerebral spinal fluid CEREBROSPINAL FLUID SPECIMEN / Unknown 08/16/2023 4:52 PM CDT 08/16/2023 5:12 PM CDT Judy Camacho MD LAB - BODY FLUID ORD ERABLES Performing Organization Address City/[facility]/ZIP Co de Phone Number [facility] [address] [place] [phone], [place] [phone] * CULTURE CSF+GRAM STAIN (08/16/2023 4:51 PM CDT) Culture No growth PRECIOUS 08/23/2023 3:56 AM CDT [facility] Gram Stain Light Polymorphonuclear cells 08/23/2023 3:56 AM CDT [facility] Gram Stain No organisms seen 024 3:56 AM CDT [facility] Cerebral spinal fluid CEREBROSPINAL FLUID SPECIMEN / Unknown Collection / Unknown 08/16/2023 4:51 PM CDT 08/16/2023 4:51 PM CDT Judy Camacho MD LAB - MICROBIOLOGY O RDERABLES [facility] [address] [place] [address], [facility] [phone] * LAB MISC TEST (08/16/2023 4:51 PM CDT) [facility] Test Name Beta-Amyloi d 42/40 Ratio, CSF 08/29/2023 7:40 AM CDT [facility] Test Result See Scanned Report 08/29/2023 7:40 AM CDT [facility] Comment Ref [facility] 08/29/2023 7:40 AM CDT [facility] Blood MISCELLANEOUS SAMPLES / Unknown Lab Venipuncture / Unknown 08/16/2023 4:51 PM CDT 08/16/2023 4:51 PM CDT Judy Camacho MD LAB SEND OUT Performing Organization Address City/[facility]/ZIP Co de Phone Number [facility] [address] [place] [address] * HERPES SIMPLEX 1+2 PCR CSF (08/16/2023 4:51 PM CDT) [facility] Herpes Simplex Virus 1 PCR CSF Not detected Not detected 08/16/2023 10:57 PM CDT [facility] Herpes Simplex Virus 2 PCR CSF Not detected Not detected 08/16/2023 10:57 PM CDT [facility] Cerebral spinal fluid CEREBROSPINAL FLUID SPECIMEN / Unknown Collection / Unknown 08/16/2023 4:51 PM CDT 08/16/2023 4:51 PM CDT Judy Camacho MD LAB - MICROBIOLOGY O RDERABLES [facility] [address] [place] [address], [facility] [phone] * ANGIOTENSIN CONVERTING ENZYME CSF (08/16/2023 4:51 PM CDT) [facility] Angiotensin-Convert ing Enzyme CSF 0.5 0.0 - 2.5 U/L 08/17/2023 4:41 PM CDT [facility] ([facility]) Comment: This test was developed and its performance characteristics determined by [employer]. It has not been cleared or approved by the US Food and Drug Administration. This test was performed in a CLIA certified laboratory and is intended for clinical purposes. Performed By: [facility] [address] [place] [address] Technical Healthcare Consultant: Chito Lebron MD, PhD CLIA Number: [id number] Cerebral spinal fluid CEREBROSPINAL FLUID SPECIMEN / Unknown 08/16/2023 4:51 PM CDT 08/16/2023 4:51 PM CDT Judy Camacho MD LAB - BODY FLUID ORD ERABLES [facility] ([facility]) [address] [place] [address], [facility] * PRION MARKERS (CJD) CSF (08/16/2023 4:51 PM CDT) Protein 14-3-3 CSF See Note 2023 7:57 PM CDT [facility] ([facility]) Comment: Specimen Condition: Slt Bloody Likelihood of prion disease: <1% Reference Range for Test Name (specimen) Result Non-Prion Disease RT-QuIC (CSF)* Negative Negative *RT-QuIC identifies the disease-causing agent Reference Range for Test Name (specimen) Result Non-Prion Disease T-tau protein (CSF) 2242 pg/mL 0-1149 pg/mL 14-3-3 GAMMA (CSF) Test not <173-1999 AU/mL Performed indirect markers of neurodegenerative disease Comment: This CSF specimen was discolored, and the sensitivity of RT-QuIC is lower in specimens that are discolored. If clinically indicated, repeat testing on a colorless CSF specimen from this patient would be appropriate. If prion disease is suspected, the [facility] is able to offer a no-cost autopsy to determine whether or not prions are the cause of the disease. [facility] staff (phone [phone]) are available to work with healthcare providers and the patient's family to plan an autopsy if desired. Chau Cho, PhD. Disclaimer: These tests were developed and their performance characteristics determined by the [facility], and have not been cleared or approved by the FDA. These assays should be used in conjunction with other clinical, pathological and laboratory findings. Performed By: [facility] [address] [place] [address] Cerebral spinal fluid CEREBROSPINAL FLUID SPECIMEN / Unknown Collection / Unknown 08/16/2023 4:51 PM CDT 08/16/2023 4:51 PM CDT Judy Camacho MD LAB - BODY FLUID ORD ERABLES [facility] ([facility]) [address] [place] [address], [facility] * (ABNORMAL) CELL COUNT W DIFFERENTIAL CSF (08/16/2023 4:49 PM CDT) Tube Number TUBE [id number] 08/16/2023 5:29 PM CDT [facility] Xanthochromia PRESENT(A ) ABSENT 08/16/2023 5:29 PM CDT [facility] CSF Appearance CLEAR 08/16/2023 5:29 PM CDT [facility] CSF Color STRAW 08/16/2023 5:29 PM CDT [facility] Total Nucleated Cells CSF 2 <=5 x10E6/L 08/16/2023 5:29 PM CDT [facility] RBC Count CSF 412(H) <1 x10E6/L 08/16/2023 5:29 PM CDT [facility] Cerebral spinal fluid CEREBROSPINAL FLUID SPECIMEN / Unknown 08/16/2023 4:49 PM CDT 08/16/2023 4:49 PM CDT Judy Camacho MD LAB - BODY FLUID ORD ERABLES Performing Organization Address City/State/[facility] Co de Phone Number [facility] [address] [place] [phone] [phone] * FL LUMBAR PUNCTURE (08/16/2023 4:30 PM CDT) Anatomical Region Laterality Modality Spine Radiographic Heather ging 08/16/2023 4:19 PM CDT Impressions 08/16/2023 5:09 PM CDT IMPRESSION: Successful lumbar puncture under fluoroscopic guidance at L2-L3. > Dictated by Aryan Jarrett DO (certified residential medication aide). I, Marquita Max MD have personally reviewed and interpreted this examination/study. > Interpreting Provider: Marquita Max MD on 08/16/2023 5:09 PM Narrative 08/16/2023 5:09 PM CDT PROCEDURE: FL LUMBAR PUNCTURE, DATE/TIME OF EXAM: 08/16/2023 1:48 PM, LOCATION [facility] INDICATION: F03.90: Dementia, unspecified dementia severity, unspecified dementia type, unspecified whether behavioral, psychotic, or mood disturbance or anxiety (HCC) ADDITIONAL CLINICAL INFORMATION: Ordering Provider Reason For Exam: Movement disorder, dementia evaluation COMPARISON: None. EXAMINATION: Diagnostic lumbar puncture (LP) under fluoroscopic guidance TECHNIQUE: The risks and benefits of the lumbar puncture including, but not limited to, infection, bleeding, seizure, epidural hematoma, post spinal headache, cerebrospinal fluid (CSF) leak requiring blood patch procedure, nausea, vomiting, irritation or damage to nerves causing pain or permanent injury were discussed with the patient. After alternatives were discussed and the opportunity to ask questions was provided, the patient acknowledged understanding, gave verbal and written consent, and wished to proceed. Procedure was performed under general anesthesia, as per patient's request/schedule Attending physician: Dr. Max was present for the younger portions of this procedure. The L2-3 level was localized with fluoroscopy. The skin overlying this level was then sterilely prepped, draped, and infiltrated with 1% lidocaine for local anesthesia. Under intermittent fluoroscopic guidance, an attempt to insert a 22 gauge 3.5 inch needle into the thecal sac was made but unsuccessful. An additional attempt to insert a 20 gauge 3.5 inch needle into the thecal sac was successful but with slow flow. The needle was slightly manipulated until a reasonable amount of CSF flow was achieved. Clear CSF was identified. A total of 22.5 ml of CSF was removed and placed into 5 specimen tubes. Small amount of CSF was also collected in additional tubing for send out labs/ dementia evaluation. The patient tolerated the procedure well. The patient was then transferred to the PACU for further observation and at least 2 hours of bedrest. OPENING PRESSURE: Not performed FLUOROSCOPY TIME: 0.7 mins Procedure Note Marquita Max MD - 08/16/2023 PROCEDURE: FL LUMBAR PUNCTURE, DATE/TIME OF EXAM: 08/16/2023 1:48 PM, LOCATION [facility] INDICATION: F03.90: Dementia, unspecified dementia severity, unspecified dementiatype, unspecified whether behavioral, psychotic, or mood disturbance oranxiety (HCC) ADDITIONAL CLINICAL INFORMATION: Ordering Provider Reason For Exam: Movement disorder, dementiaevaluation COMPARISON: None. EXAMINATION: Diagnostic lumbar puncture (LP) under fluoroscopicguidance TECHNIQUE: The risks and benefits of the lumbar puncture including, but not limited to, infection, bleeding, seizure, epidural hematoma, post spinal headache, cerebrospinal fluid (CSF) leak requiring blood patch procedure, nausea, vomiting, irritation or damage to nerves causing painor permanent injury were discussed with the patient. After alternativeswere discussed and the opportunity to ask questions was provided, the patient acknowledged understanding, gave verbal and written consent, and wishedto proceed. Procedure was performed under general anesthesia, as perpatient's request/schedule Attending physician: Dr. Max was present for the younger portions of this procedure. The L2-3 level was localized with fluoroscopy. The skin overlying this level was then sterilely prepped, draped, and infiltrated with 1%lidocaine for local anesthesia. Under intermittent fluoroscopic guidance, anattempt to insert a 22 gauge 3.5 inch needle into the thecal sac was made but unsuccessful. An additional attempt to insert a 20 gauge 3.5 inch needle into the thecal sac was successful but with slow flow. The needle was slightly manipulated until a reasonable amount of CSF flow was achieved. Clear CSF was identified. A total of 22.5 ml of CSF was removed andplaced into 5 specimen tubes. Small amount of CSF was also collected inadditional tubing for send out labs/ dementia evaluation. The patient tolerated the procedure well. The patient was then transferred to the PACU for further observation and at least 2 hours of bedrest. OPENING PRESSURE: Not performed FLUOROSCOPY TIME: 0.7 mins IMPRESSION: Successful lumbar puncture under fluoroscopic guidance at L2-L3. > Dictated by Aryan Jarrett DO (certified residential medication aide). I, Marquita Max MD have personally reviewed and interpreted this examination/study. > Interpreting Provider: Marquita Max MD on 08/16/2023 5:09 PM Ordering Provider Unlisted FLUOROSCOP Y ORDERABLES * MRI BRAIN WWO CONTRAST (08/16/2023 2:18 PM CDT) Anatomical Region Laterality Modality Head Magnetic Resonan ce 08/16/2023 2:52 PM CDT Impressions 08/26/2023 2:32 PM CDT IMPRESSION: 1. Findings suggesting chronic small vessel ischemic disease of the brain with mild cerebral volume loss. 2. An 8 x 4 mm enhancing extra-axial lesion anterior to the right cerebellum in the right cerebellomedullary angle (series 10 image 52) could represent a small enhancing extra-axial mass versus a segment of a vessel. Recommend short-term follow-up brain MRI without and with contrast in 2-3 months to monitor interval change. > Dictated by Jaciel Beck DO (certified residential medication aide). ITiffany MD have personally reviewed and interpreted this examination/study. > Interpreting Provider: Tiffany Morrow MD on 08/26/2023 2:32 PM Narrative 08/26/2023 2:32 PM CDT PROCEDURE: MRI BRAIN WWO CONTRAST, DATE/TIME OF EXAM: 08/16/2023 2:19 PM, LOCATION [facility] INDICATION: F03.90: Dementia, unspecified dementia severity, unspecified dementia type, unspecified whether behavioral, psychotic, or mood disturbance or anxiety (HCC) ADDITIONAL CLINICAL INFORMATION: Ordering Provider Reason For Exam: SEE MEDIA ORDER EXAMINATION: Magnetic resonance imaging (MRI) of the brain without and with contrast TECHNIQUE: MRI of the brain was performed prior to and following the uneventful administration of 6 mL Gadavist intravenous contrast according to standard protocol. COMPARISON: No prior study is available for comparison at the time of this dictation. FINDINGS: No evidence of acute cerebral infarction is seen. No evidence of acute or chronic hemorrhage is identified. There is mild cerebral volume loss with associated ex vacuo ventricular dilatation. No mass effect or midline shift is seen. Mild periventricular and subcortical white matter FLAIR hyperintensities are nonspecific, but can be seen in the setting of chronic small vessel ischemic disease. 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 There is a small developmental venous anomaly in the left occipital lobe. There is an 8 x 4 mm enhancing extra-axial lesion anterior to the right cerebellum in the right cerebellomedullary angle (series 10 image 52). The corpus callosum and sella appear normal. The posterior fossa, brainstem, and craniocervical junction appear normal. Prominent CSF space versus ill-defined arachnoid cyst is noted on image 17 of series 9 and with signal dropout on FLAIR as seen on series 4 image 17. The orbits are unremarkable. Trace bilateral mastoid effusions. Moderate mucosal thickening of the ethmoid air cells Normal flow voids are demonstrated in the carotid arteries and basilar artery. The calvarium and visualized cervical spine appear normal. Procedure Note Tiffany Morrow MD - 08/26/2023 PROCEDURE: MRI BRAIN WWO CONTRAST, DATE/TIME OF EXAM: 08/16/2023 2:19PM, LOCATION [facility] INDICATION: F03.90: Dementia, unspecified dementia severity, unspecified dementiatype, unspecified whether behavioral, psychotic, or mood disturbance oranxiety (HCC) ADDITIONAL CLINICAL INFORMATION: Ordering Provider Reason For Exam: SEE MEDIA ORDER EXAMINATION: Magnetic resonance imaging (MRI) of the brain without andwith contrast TECHNIQUE: MRI of the brain was performed prior to and following the uneventful administration of 6 mL Gadavist intravenous contrastaccording to standard protocol. COMPARISON: No prior study is available for comparison at the time ofthis dictation. FINDINGS: No evidence of acute cerebral infarction is seen. No evidence of acuteor chronic hemorrhage is identified. There is mild cerebral volume losswith associated ex vacuo ventricular dilatation. No mass effect or midlineshift is seen. Mild periventricular and subcortical white matter FLAIR hyperintensities are nonspecific, but can be seen in the setting ofchronic small vessel ischemic disease. Old lacunar infarct is present in theright lentiform nucleus with associated T2/FLAIR changes. There is a small developmental venous anomaly in the left occipital lobe. There is an 8 x4 mm enhancing extra-axial lesion anterior to the right cerebellum in the right cerebellomedullary angle (series 10 image 52). The corpus callosum and sella appear normal. The posterior fossa, brainstem, andcraniocervical junction appear normal. Prominent CSF space versus ill-defined arachnoid cyst is noted on image17 of series 9 and with signal dropout on FLAIR as seen on series 4 image17. The orbits are unremarkable. Trace bilateral mastoid effusions. Moderate mucosal thickening of the ethmoid air cells Normal flow voids are demonstrated in the carotid arteries and basilar artery. The calvariumand visualized cervical spine appear normal. IMPRESSION: 1. Findings suggesting chronic small vessel ischemic disease of thebrain with mild cerebral volume loss. 2. An 8 x 4 mm enhancing extra-axial lesion anterior to the right cerebellum in the right cerebellomedullary angle (series 10 image 52)could represent a small enhancing extra-axial mass versus a segment of avessel. Recommend short-term follow-up brain MRI without and with contrast in2-3 months to monitor interval change. > Dictated by Jaciel Beck DO (certified residential medication aide). I, Tiffany Morrow MD have personally reviewed and interpreted this examination/study. > Interpreting Provider: Tiffany Morrow MD on 08/26/2023 2:32 PM Ordering Provider Unlisted MR ORDERAB LES * (ABNORMAL) CREATININE - POCT INTERFACED (08/16/2023 1:38 PM CDT) Creatinine POCT 0.75 0.30 - 1.30 mg/dL 08/16/2023 2:19 PM CDT [facility] eGFR 81(L) >=90 mL/min/1.7 3 m2 08/16/2023 2:19 PM CDT [facility] Blood BLOOD SPECIMEN / Unknown 08/16/2023 1:38 PM CDT 08/16/2023 2:19 PM CDT Judy Camacho MD LAB - POINT OF CARE ORDERABLES [facility] [address] [place] [address], [facility] [phone] * ETT LINE PERFORMABLE (08/16/2023 1:20 PM CDT) Narrative Luli Poe Anes Asst - 08/16/2023 1:20 PM CDT Luli Poe Anes Asst 08/16/2023 1:20 PM Endotracheal Tube Placement: Patient Location: Other - please comment ([facility]). Intubation Event Date/Time: 08/16/2023 1:11 PM Procedure: intubation (26172). Procedure Section: Sedation: IV sedation. Indications for Airway Management: airway protection Induction: standard IV Patient Position: supine Mask Ventilation: easy. Blade Type: Nicole Blade Size: 3 Laryngoscopy View: grade 1 (full cords) Intubation Adjuncts: stylet Tube: endotracheal tube Placement: oral Tube Size (MM): 7 Depth of Insertion (CM): 22.5 Measured From: teeth Cuff Inflated With: air Number of Attempts: 1. Placement Verified By: direct visualization, bilateral breath sounds, chest auscultation and CO2 monitor Tube secured with: adhesive tape. Dentition unchanged? Yes Difficult Airway? No. Procedure Start Time: 08/16/2023 1:11 PM. Staff Section Anesthesia Provider: Luli Poe Anes Asst, Performed the procedure Provider #1: Mariah Brewster MD. Mariah Brewster MD GENERAL ANESTHESIA ORDERABLES * (ABNORMAL) GLUCOSE - POINT OF CARE (08/16/2023 11:38 AM CDT) Glucose WB/POC 125(H) 70 - 115 mg/dL 08/19/2023 5:18 AM CDT [facility] Specimen Type Cap Fingerstick 2023 5:18 AM CDT [facility] Blood BLOOD SPECIMEN / Unknown 08/16/2023 11:38 AM CDT 08/19/2023 5:17 AM CDT Judy Camacho MD LAB - POINT OF CARE ORDERABLES Performing Organization Address City/State/[facility] Co de Phone Number [address] [address], [facility] [phone] Care Teams Eyelet Cutter Relationship Specialty Start Date End Date Unknown, Provider PCP - General 08/14/23
--- OUTSIDE RECORDS SUMMARY | 2024-07-27 20:26 | XMS_ITS | Referral Summary ---
Author Organization [facility] Address [address] [place] [address] Care Team Providers Care Learning And Development Officer Name Role Phone Unknown, Provider Primary Care Provider Unavaila ble Source Comments [facility],non-owned Affiliates and Associated Physician Practices is amultiple site organization consisting of ambulatory clinics and hospital sitesin [place], [place] and [place]. This disclosure is being madepursuant to the Care Everywhere program and may not contain all information available regarding this patient. Last updated 18.[facility] Allergies Active Allergy Reactions Criticality Noted Date [...] mouth 2 times daily Active Multiple Minerals-Vitamins (gnevanl-vfihditli-g inc-D3) TABS tablet Take by mouth once [...] Mass Index 21.97 12/25/2023 3:11 PM CDT Functional Status Functional Status Response Date of Assess ment Is person deaf or have serious hearing difficult y? No 08/16/2023 Is person blind or have serious difficulty seein g? No 08/16/2023 Does person have serious dif ficulty walking/climbing stairs? Yes 08/16/2023 Does person have difficulty dressing/bathing? Ye s 08/16/2023 Does person have difficulty doing errands alone? Yes 08/16/2023 Cognitive Status Response Date of Assessm ent Does person have difficulty concentrating/remembering/making decisions? Yes 08/16/2023 Plan of Treatment Not on file Medical Devices Implanted Type Area Tractor Crane Engineer Device Identifier Shelf Expiration Date Model / Serial / Lot Ra Lead Medtronic Inc 5076-45 / [id number] / Rv Lead Medtronic Inc 5076-52 / [id number] / Pacemaker- 3 Implanted: 023 (Quantity not on file) Medtronic Inc W1DR01 / [id number] / Description:[id number] Analilia XT DR MARTIN Jaramillo- MRI conditional to 1.5T or 3T-LT 07/17/23 RA 5076-45 RV 5076-52 Care Teams Learning And Development Officer Relationship Specialty Start Date End Date Unknown, Provider PCP - General 08/14/23
[2024-07-27 20:32] VITALS: BP 122/50; PULSE 93; RESP 15; TEMP 36.6; O2SAT 100
--- OUTSIDE RECORDS SUMMARY | 2024-07-27 21:52 | XMS_ITS | Clinical Summary ---
Author Organization [facility] Address [address] [address] Care Team Providers Care Morning News Producer Name Role Phone Unknown, Provider Primary Care Provider Unavaila ble Source Comments [facility],non-owned Affiliates and Associated Physician Practices is amultiple site organization consisting of ambulatory clinics and hospital sitesin [place], [place], [place] and [place]. This disclosure is being madepursuant to the Care Everywhere program and may not contain all information available regarding this patient. Last updated 18.[facility] Allergies Active Allergy Reactions Criticality Noted Date [...] mouth 2 times daily Active Multiple Minerals-Vitamins (vnojooa-lawyqlzfa-e inc-D3) TABS tablet Take by mouth once [...] this topic Medical Devices Implanted Type Area Drive Man Device Identifier Shelf Expiration Date Model / Serial / Lot Ra Lead Medtronic Inc 5076-45 / [id number] / Rv Lead Medtronic Inc 5076-52 / [id number] / Pacemaker- 3 Implanted: 023 (Quantity not on file) Medtronic Inc W1DR01 / [id number] / Description:[id number] Anal[address] MARTIN Jaramillo- MRI conditional to 1.5T or 3T-LT 07/17/23 RA 5076-45 RV 5076-52 Care Teams Morning News Producer Relationship Specialty Start Date End Date Unknown, Provider PCP - General 08/14/23
--- OUTSIDE RECORDS SUMMARY | 2024-07-27 21:52 | XMS_ITS | Clinical Summary ---
Author Organization [facility] Address [address] [place] [address] Care Team Providers Care Call Center Operations Manager Name Role Phone Candy August MD Primary Care Provider [phone] Social History Tobacco Use Types Packs/Day Years [...] this topic Medical Devices Implanted Type Area Shafting Cleaner Device Identifier Shelf Expiration Date Model / Serial / Lot Ra Lead-06/28/2022 Implanted:Qty: 1 on 06/28/2022 by Kelsie Ulrich MD Lead Implant Right: Atrium MEDTRONIC CARDIAC RHYTHM AND HEART FAILURE - DIV M 5076-45 / [id number] / Rv Lead-06/28/2022 Implanted:Qty: 1 on 06/28/2022 by Kelsie Ulrich MD Lead Implant Right: Ventricle MEDTRONIC CARDIAC RHYTHM AND HEART FAILURE - DIV M 5076-52 / [id number] / Pacemaker-2022 Implanted:Qty: 1 on 06/28/2022 by Kelsie Ulrich MD Pacemaker Chest MEDTRONIC CARDIAC RHYTHM AND HEART FAILURE - DIV M W1DR01 / [id number] / Description:MRI Conditional under following conditions: [...] (4W/kg or less whole body) Insurance MEDICARE [facility] Care Teams Call Center Operations Manager Relationship Specialty Start Date End Date Candy August MD [address] [place] [address] PCP - General FAMILY PRACTICE 06/05/23
--- OUTSIDE RECORDS SUMMARY | 2024-07-27 21:52 | XMS_ITS | Referral Summary ---
Author Organization [facility] [address] [place] [address] [address] [place] [address] Care Team Providers Care Senior Biostatistician Name Role Phone Candy August MD Primary Care Provider [phone] Encounters Date Type Department Care Team Description 06/18/2024 11:00 AM SPRAY DRIER OPERATOR HELPER - 06/18/2024 11:59 PM SPRAY DRIER OPERATOR HELPER Hospital Encounter [facility] [address] [place] [address] Elisabeth Mg MD Other closed fracture of shaft of right humerus with routine healing, subsequent encounter Discharge Disposition: Discharge to home or self care 06/18/2024 11:20 AM SPRAY DRIER OPERATOR HELPER Office Visit [facility] Orthopaedic Surgery [address] [facility] 6th [place] [address] [place] [address] Elisabeth Mg MD Other closed fracture of shaft of right humerus with routine healing, subsequent encounter (Primary Dx) 05/06/2024 11:30 AM SPRAY DRIER OPERATOR HELPER Ancillary Procedure [facility] [address] [place] [address] PAT (paroxysmal atrial tachycardia) (Primary Dx); Complete heart block (HCC); Cardiac pacemaker in situ; H/O syncope 05/05/2024 Orders Only [facility] [address], [place] [phone] Golden Guadalupe MD Cardiac pacemaker in situ (Primary Dx); Complete heart block (HCC); PAT (paroxysmal atrial tachycardia) 04/30/2024 10:40 AM SPRAY DRIER OPERATOR HELPER Office Visit [facility] Orthopaedic Surgery [address] [facility] 6[address] [place] [address] [place] [address] Elisabeth Mg MD Other closed fracture of shaft of right humerus with routine healing, subsequent encounter (Primary Dx) from Last 3 Months Allergies Active Allergy Reactions Criticality Noted Date Comments Codeine Vomiting Low 03/08/2022 Lwckkqm-Jiu-Bpp Reductase Inhibitors Diarrhea Low 01/03/2024 Medications metFORMIN [...] day - stopped taking when started on Amalia 4 Active memantine XR (NAMENDA XR) 28 [...] pacemaker in situ 06/28/2022 Overview (07/04/2022): Medtronic [place] Dual Pacemaker. Dx; CHB, Syncope, PAF. DOI 06/28/2022-[facility]. [facility]. [facility] remote monitoring. Loop recorder was explanted. [...] on file Legal Sex Female 6:05 PM SPRAY DRIER OPERATOR HELPER Gender Identity Not on file Sexual Orientation Not on file Last Filed Vital Signs Vital Sign Reading Time Taken Comments Blood Pressure 125/59 04/10/2024 8:20 AM SPRAY DRIER OPERATOR HELPER Pulse 84 04/10/2024 8:20 AM SPRAY DRIER OPERATOR HELPER Temperature 36.6 C (97.9 F) 04/10/2024 8:20 AM SPRAY DRIER OPERATOR HELPER Respiratory Rate 16 04/10/2024 8:20 AM SPRAY DRIER OPERATOR HELPER Oxygen Saturation 98% 04/10/2024 8:20 AM SPRAY DRIER OPERATOR HELPER Inhaled Oxygen Concentration - - Weight 51.3 kg (113 lb 1.5 oz) 04/07/2024 9:03 P M SPRAY DRIER OPERATOR HELPER Height 157.5 cm (5' 2 ) 04/07/2024 9:03 PM SPRAY DRIER OPERATOR HELPER Body Mass Index 20.69 04/07/2024 9:03 PM SPRAY DRIER OPERATOR HELPER Plan of Treatment Not on file Medical Devices Implanted Type Area Sales Associate Cashier Device Identifier Shelf Expiration Date Model / Serial / Lot Pacemaker- 023 Implanted:Qty: 1 on 06/28/2022 Pacemaker Left: Chest Wall Medtronic Synthes 3.5mm 2.9mm 24mm Self Tap Lock Stardrive Conical Head Pelvis T15 212.108 - [id number] Implanted:Qty: 2 on 04/07/2024 by Elisabeth Mg MD at [facility] Right: Humerus Synthes 212.108 / / Synthes 3.5mm 6mm 26mm 2.5mm Self Tap Small Hexagonal Socket Low Profile 204.826 - [id number] Implanted:Qty: 2 on 04/07/2024 by Elisabeth Mg MD at [facility] Right: Humerus Synthes 204.826 / / Synthes 3.5mm 2.9mm 22mm Self Tap Lock Stardrive Conical Head T15 Full 212.107 - [id number] Implanted:Qty: 1 on 04/07/2024 by Elisabeth Mg MD at [facility] Right: Humerus Synthes 212.107 / / Synthes 3.5mm 2.9mm 28mm Self Tap Lock Stardrive Conical Head T15 Full 212.110 - [id number] Implanted:Qty: 1 on 04/07/2024 by Elisabeth Mg MD at [facility] Right: Humerus Synthes 212.110 / / Synthes 3.5mm 2.9mm 46mm Self Tap Lock Stardrive Conical Head T15 Full 212.136 - [id number] Implanted:Qty: 2 on 04/07/2024 by Elisabeth Mg MD at [facility] Right: Humerus Synthes I 212.136 / / Synthes 3.5mm 2.9mm 42mm Self Tap Lock Stardrive Conical Head Full Thread 212.118 - [id number] Implanted:Qty: 2 on 04/07/2024 by Elisabeth Mg MD at [facility] Right: Humerus Synthes I 212.118 / / Synthes 2.7mm 5mm 24mm 2.5mm Self Tap Spherical Head Small Hexagonal 202.824 - [id number] Implanted:Qty: 2 on 04/07/2024 by Elisabeth Mg MD at [facility] Right: Humerus Synthes 202.824 / / Synthes 2.7mm 5mm 22mm 2.5mm Self Tap Spherical Head Small Hexagonal 202.822 - [id number] Implanted:Qty: 1 on 04/07/2024 by Elisabeth Mg MD at [facility] Right: Humerus Synthes 202.822 / / Synthes Lcp Combi Philos Long [id number] 8 Hole Shaft Lock Compression 241.921 - [id number] Implanted:Qty: 1 on 04/07/2024 by Elisabeth Mg MD at [facility] Right: Humerus Synthes I 241.921 / / Synthes 3.5mm 6mm 24mm 2.5mm Self Tap Small Hexagonal Socket Low Profile 204.824 - [id number] Implanted:Qty: 2 on 04/07/2024 by Elisabeth Mg MD at [facility] Right: Humerus Synthes 204.824 / / Synthes 3.5mm 2.9mm 26mm Self Tap Lock Stardrive Conical Head T15 Full 212.109 - [id number] Implanted:Qty: 2 on 04/07/2024 by Eilsabeth Mg MD at [facility] Right: Humerus Synthes 212.109 / / Synthes 3.5mm 2.9mm 48mm Self Tap Lock Fix Angle Low Profile Pelvis Full 212.120 - [id number] Implanted:Qty: 1 on 04/07/2024 by Elisabeth Mg MD at [facility] Right: Humerus Synthes I 212.120 / / Synthes Lcp 12mm [id number] .7mm 7 Hole Collar 1/3 Tubular Plate Bone 241.371 - [id number] Implanted:Qty: 1 on 04/07/2024 by Elisabeth Mg MD at [facility] Right: Humerus Synthes 241.371 / / Synthes 3.5mm 6mm 22mm 2.5mm Self Tap Small Hexagonal Socket Low Profile 204.822 - [id number] Implanted:Qty: 2 on 04/07/2024 by Elisabeth Mg MD at [facility] Right: Humerus Synthes I 204.822 / / Procedures Procedure Name Priority Date/Time Associated Diagnosis Comments XR HUMERUS RIGHT 2 OR MORE VIEWS Schedule Routine, Read Routine (OP Routine) 06/18/2024 11:22 AM SPRAY DRIER OPERATOR HELPER Other closed fracture of shaft of right humerus with routine healing, subsequent encounter DEVICE CHECK - IN OFFICE Routine 05/06/2024 11:21 AM SPRAY DRIER OPERATOR HELPER Complete heart block (HCC) Cardiac pacemaker in situ H/O syncope EGFR STAT 04/08/2024 7:11 AM SPRAY DRIER OPERATOR HELPER LIPID PANEL STAT 04/08/2024 7:11 AM SPRAY DRIER OPERATOR HELPER POCT HEMOGLOBIN A1C Routine 04/06/2024 10:08 AM SPRAY DRIER OPERATOR HELPER from Last 3 Months or Most Recently Relevant to Health Maintenance Results * XR Humerus Right 2 or More Views (06/18/2024 11:22 AM SPRAY DRIER OPERATOR HELPER) Anatomical Region Laterality Modality Upper Extremities, Upper Arm Right Com puted Radiography 06/18/2024 11:5 6 AM SPRAY DRIER OPERATOR HELPER Impressions 06/18/2024 12:46 PM SPRAY DRIER OPERATOR HELPER 1. Interval reduction and internal fixation of right humeral shaft fracture. Dictated by: Charlie Loaiza MD PHD The radiology attending physician has personally reviewed this study, and had reviewed and/or edited this written report and agrees with it. Electronically signed by: Juve Gill M.D. Narrative 06/18/2024 12:46 PM SPRAY DRIER OPERATOR HELPER EXAMINATION: XR HUMERUS RIGHT 2 OR MORE [...] CHECK - IN OFFICE (05/06/2024 11:21 AM SPRAY DRIER OPERATOR HELPER) Anatomical Region Laterality Modality Other Narrative 05/07/2024 8:25 AM SPRAY DRIER OPERATOR HELPER Medtronic Analilia Dual Pacemaker. Dx; CHB, Syncope, PAF. DOI 06/28/2022-[facility]. Carelink remote monitoring. ILR explanted. Supervising MD: Dr. Murray. Left pectoral incision well approximated without redness, drainage, or edema noted. Office DDD Pacemaker interrogation demonstrated appropriate device function. Appropriate lead measurements noted. Battery function-3.04V, 13.2 years remaining battery longevity to VIN. Presenting rhythm-ASVS (SR) 90 bpm. AP-0.2%, ANALYTICAL LEAD-<0.1%. No mode switch episodes noted. 4 Fast A&V episodes noted, iegm's SVT, AT/AF, 2 minutes longest duration. 6 Ventricular high rate episodes noted, iegm's ST-SVT @ 154-174 bpm.. See scanned report. Medications; Zetia. Office pacemaker f/u 08/04/2025. Carelink remote f/u 08/12/2024. Isabelle Roldan RN [facility] Franki Guadalupe MD CV CARDIAC SERVICES PRO CEDURES Final Result * eGFR (04/08/2024 7:11 AM SPRAY DRIER OPERATOR HELPER) eGFR 90 >=60 mL/min/1. 73 m2 Comment: [...] last reviewed 2021. Blood 04/08/2024 7:11 AM SPRAY DRIER OPERATOR HELPER 04/08/2024 7:21 AM SPRAY DRIER OPERATOR HELPER Elisabeth Mg MD LAB BLOOD ORDERABL ES Final Result EMIR JOSE [facility] Department [place] [address] * (ABNORMAL) Lipid panel (04/08/2024 7:11 AM SPRAY DRIER OPERATOR HELPER) Cholesterol 93 30 - 199 mg/dL Comment: [...] 2 EMIR GARCIA Blood 04/08/2024 7:11 AM SPRAY DRIER OPERATOR HELPER 04/08/2024 7:21 AM SPRAY DRIER OPERATOR HELPER Elisabeth Mg MD LAB BLOOD ORDERABL ES Final Result EMIR GARCIA [facility] Department [place] [address] * POCT hemoglobin A1c (04/06/2024 10:08 AM SPRAY DRIER OPERATOR HELPER) Hgb A1C, POC 5.5 4.0 - 5.6 % Est Average Gluc POC 111 mg/dL EMIR SHARMA Comment: The ADA recommends reporting an estimated Average Glucose (eAG) with all Hemoglobin A1c results using the equation derived from a study of 507 normal and diabetic adults. Minority populations were underrepresented and children were not included. (Diabetes Care 31:5002-8959, 2008). The eAG is not equivalent to a fasting glucose. Blood 04/06/2024 10:0 8 AM SPRAY DRIER OPERATOR HELPER 04/06/2024 10:08 AM SPRAY DRIER OPERATOR HELPER Elisabeth Mg MD POINT OF CARE TEST ORDERABLES Final Result EM[facility] Department [place] [address] from Last 3 Months or Most Recently Relevant to Health Maintenance Insurance [facility]ICARE [facility] MEDICARE MEDICARE [facility] Advance Directives For more information, please contact: [phone] * Full Code (Latest Code Status on File) Date Activated Date Inactivated Comments 04/07/2024 5:54 PM 04/10/2024 6:36 PM Care Teams Senior Biostatistician Relationship Specialty Start Date End Date Candy August MD PCP - General Family Medicine 01/30/22
--- OUTSIDE RECORDS SUMMARY | 2024-07-27 21:52 | XMS_ITS | Referral Summary ---
Author Organization [facility] [employer] Address [address] [address] Care Team Providers Care Air Operations Manager Name Role Phone Unknown, Provider Primary Care Provider Unavaila ble Source Comments [facility],non-owned Affiliates and Associated Physician Practices is amultiple site organization consisting of ambulatory clinics and hospital sitesin [place], [place], [place] and [place]. This disclosure is being madepursuant to the Care Everywhere program and may not contain all information available regarding this patient. Last updated 18.[facility] Allergies Active Allergy Reactions Criticality Noted Date [...] mouth 2 times daily Active Multiple Minerals-Vitamins (iavijbp-bufwfhtqh-k inc-D3) TABS tablet Take by mouth once [...] on file Medical Devices Implanted Type Area Air Twister Winder Device Identifier Shelf Expiration Date Model / Serial / Lot Ra Lead Medtronic Inc 5076-45 / [id number] / Rv Lead Medtronic Inc 5076-52 / [id number] / Pacemaker- 3 Implanted: 023 (Quantity not on file) Medtronic Inc W1DR01 / [id number] / Description:[id number] Analilia XT DR MARTIN Jaramillo- MRI conditional to 1.5T or 3T-LT 07/17/23 RA 5076-45 RV 5076-52 Care Teams Air Operations Manager Relationship Specialty Start Date End Date Unknown, Provider PCP - General 08/14/23
--- OUTSIDE RECORDS SUMMARY | 2024-07-27 21:52 | XMS_ITS | Clinical Summary ---
Author Organization [facility] [address] Address [address] [place] [address] Care Team Providers Care Shipping Manager Name Role Phone Candy August MD Primary Care Provider [phone] Allergies Active Allergy Reactions Criticality Noted Date Comments Codeine Vomiting Low 03/08/2022 Eughiqf-Agd-Vfa Reductase Inhibitors Diarrhea Low 01/03/2024 Medications metFORMIN [...] day - stopped taking when started on [place] 4 Active memantine XR (NAMENDA XR) 28 [...] Dual Pacemaker. Dx; CHB, Syncope, PAF. DOI 06/28/2022-[facility]. [place]. [employer] remote monitoring. Loop recorder [...] Department Care Team Description 06/18/2024 11:20 AM ART INSTALLER Office Visit [facility] [address] [place] [address] [place] [address] Elisabeth Mg MD Other closed fracture of shaft of right humerus with routine healing, subsequent encounter (Primary Dx) 06/18/2024 11:00 AM ART INSTALLER - 06/18/2024 11:59 PM ART INSTALLER Hospital Encounter [facility] [address] [place] [address] Elisabeth Mg MD Other closed fracture of shaft of right humerus with routine healing, subsequent encounter Discharge Disposition: Discharge to home or self care 05/06/2024 11:30 AM ART INSTALLER Ancillary Procedure [facility] [address] [place] [address] PAT (paroxysmal atrial tachycardia) (Primary Dx); Complete heart block (HCC); Cardiac pacemaker in situ; H/O syncope 05/05/2024 Orders Only [facility] [address] [facility] [place] [phone] Golden Guadalupe MD Cardiac pacemaker in situ (Primary Dx); Complete heart block (HCC); PAT (paroxysmal atrial tachycardia) 04/30/2024 10:40 AM ART INSTALLER Office Visit [facility] [facility] [address] [place] [address] [place] [address] Elisabeth Mg MD Other closed fracture of [...] on file Legal Sex Female 6:05 PM ART INSTALLER Gender Identity Not on file Sexual Orientation Not on file Obstetrics History Last Filed Vital Signs Vital Sign Reading Time Taken Comments Blood Pressure 125/59 04/10/2024 8:20 AM ART INSTALLER Pulse 84 04/10/2024 8:20 AM ART INSTALLER Temperature 36.6 C (97.9 F) 04/10/2024 8:20 AM ART INSTALLER Respiratory Rate 16 04/10/2024 8:20 AM ART INSTALLER Oxygen Saturation 98% 04/10/2024 8:20 AM ART INSTALLER Inhaled Oxygen Concentration - - Weight 51.3 kg (113 lb 1.5 oz) 04/07/2024 9:03 P M ART INSTALLER Height 157.5 cm (5' 2 ) 04/07/2024 9:03 PM ART INSTALLER Body Mass Index 20.69 04/07/2024 9:03 PM ART INSTALLER Plan of Treatment Health Maintenance Due Date [...] 05/04/2015, 03/21 Medical Devices Implanted Type Area Health Technician Hearing Device Identifier Shelf Expiration Date Model / Serial / Lot Pacemaker- [id number] Implanted:Qty: 1 on 06/28/2022 Pacemaker Left: Chest Wall Medtronic Synthes 3.5mm 2.9mm 24mm Self Tap Lock Stardrive Conical Head Pelvis T15 212.108 - [id number] Implanted:Qty: 2 on 04/07/2024 by Elisabeth Mg MD at [facility] Right: Humerus Synthes 212.108 / / Synthes 3.5mm 6mm 26mm 2.5mm Self Tap Small Hexagonal Socket Low Profile 204.826 - [id number] Implanted:Qty: 2 on 04/07/2024 by Elisabeth Mg MD at [facility] Right: Humerus Synthes 204.826 / / Synthes 3.5mm 2.9mm 22mm Self Tap Lock Stardrive Conical Head T15 Full 212.107 - [id number] Implanted:Qty: 1 on 04/07/2024 by Elisabeth Mg MD at [facility] Right: Humerus Synthes 212.107 / / Synthes 3.5mm 2.9mm 28mm Self Tap Lock Stardrive Conical Head T15 Full 212.110 - [id number] Implanted:Qty: 1 on 04/07/2024 by Elisabeth Mg MD at [facility] Right: Humerus Synthes 212.110 / / Synthes 3.5mm 2.9mm 46mm Self Tap Lock Stardrive Conical Head T15 Full 212.136 - [id number] Implanted:Qty: 2 on 04/07/2024 by Elisabeth Mg MD at [facility] Right: Humerus Synthes I 212.136 / / Synthes 3.5mm 2.9mm 42mm Self Tap Lock Stardrive Conical Head Full Thread 212.118 - [id number] Implanted:Qty: 2 on 04/07/2024 by Elisabeth Mg MD at [facility] Right: Humerus Synthes I 212.118 / / Synthes 2.7mm 5mm 24mm 2.5mm Self Tap Spherical Head Small Hexagonal 202.824 - [id number] Implanted:Qty: 2 on 04/07/2024 by Elisabeth Mg MD at [facility] Right: Humerus Synthes 202.824 / / Synthes 2.7mm 5mm 22mm 2.5mm Self Tap Spherical Head Small Hexagonal 202.822 - [id number] Implanted:Qty: 1 on 04/07/2024 by Elisabeth Mg MD at [facility] Right: Humerus Synthes 202.822 / / Synthes Lcp Combi Philos Long [id number] 8 Hole Shaft Lock Compression 241.921 - [id number] Implanted:Qty: 1 on 04/07/2024 by Elisabeth Mg MD at [facility] Right: Humerus Synthes I 241.921 / / Synthes 3.5mm 6mm 24mm 2.5mm Self Tap Small Hexagonal Socket Low Profile 204.824 - [id number] Implanted:Qty: 2 on 04/07/2024 by Elisabeth Mg MD at [facility] Right: Humerus Synthes 204.824 / / Synthes 3.5mm 2.9mm 26mm Self Tap Lock Stardrive Conical Head T15 Full 212.109 - [id number] Implanted:Qty: 2 on 04/07/2024 by Elisabeth Mg MD at [facility] Right: Humerus Synthes 212.109 / / Synthes 3.5mm 2.9mm 48mm Self Tap Lock Fix Angle Low Profile Pelvis Full 212.120 - [id number] Implanted:Qty: 1 on 04/07/2024 by Elisabeth Mg MD at [facility] Right: Humerus Synthes I 212.120 / / Synthes Lcp 12mm [id number] .7mm 7 Hole Collar 1/3 Tubular Plate Bone 241.371 - [id number] Implanted:Qty: 1 on 04/07/2024 by Elisabeth Mg MD at [facility] Right: Humerus Synthes 241.371 / / Synthes 3.5mm 6mm 22mm 2.5mm Self Tap Small Hexagonal Socket Low Profile 204.822 - [id number] Implanted:Qty: 2 on 04/07/2024 by Elisabeth Mg MD at [facility] Right: Humerus Synthes I 204.822 / / Procedures Procedure Name Priority Date/Time Associated Diagnosis Comments XR HUMERUS RIGHT 2 OR MORE VIEWS Schedule Routine, Read Routine (OP Routine) 06/18/2024 11:22 AM ART INSTALLER Other closed fracture of shaft of right humerus with routine healing, subsequent encounter DEVICE CHECK - IN OFFICE Routine 05/06/2024 11:21 AM ART INSTALLER Complete heart block (HCC) Cardiac pacemaker in situ H/O syncope EGFR STAT 04/08/2024 7:11 AM ART INSTALLER LIPID PANEL STAT 04/08/2024 7:11 AM ART INSTALLER POCT HEMOGLOBIN A1C Routine 04/06/2024 10:08 AM ART INSTALLER from Last 3 Months or Most Recently Relevant to Health Maintenance Results * XR Humerus Right 2 or More Views (06/18/2024 11:22 AM ART INSTALLER) Anatomical Region Laterality Modality Upper Extremities, Upper Arm Right Com puted Radiography 06/18/2024 11:5 6 AM ART INSTALLER Impressions 06/18/2024 12:46 PM ART INSTALLER 1. Interval reduction and internal fixation of right humeral shaft fracture. Dictated by: Charlie Loaiza MD PHD The radiology attending physician has personally reviewed this study, and had reviewed and/or edited this written report and agrees with it. Electronically signed by: Juve Gill M.D. Narrative 06/18/2024 12:46 PM ART INSTALLER EXAMINATION: XR HUMERUS RIGHT 2 OR MORE [...] CHECK - IN OFFICE (05/06/2024 11:21 AM ART INSTALLER) Anatomical Region Laterality Modality Other Narrative 05/07/2024 8:25 AM ART INSTALLER Medtronic Analilia Dual Pacemaker. Dx; CHB, Syncope, PAF. DOI [facility]28[facility]20[facility] ILR explanted. Supervising MD: Dr. Murray. Left pectoral incision well approximated without redness, drainage, or edema noted. Office DDD Pacemaker interrogation demonstrated appropriate device function. Appropriate lead measurements noted. Battery function-3.04V, 13.2 years remaining battery longevity to VIN. Presenting rhythm-ASVS (SR) 90 bpm. AP-0.2%, BUSINESS PLANNING MANAGER-<0.1%. No mode switch episodes noted. 4 Fast A&V episodes noted, iegm's SVT, AT/AF, 2 minutes longest duration. 6 Ventricular high rate episodes noted, iegm's ST-SVT @ 154-174 bpm.. See scanned report. Medications; Zetia. Office pacemaker f/u 08/04/2025. Carelink remote f/u 08/12/2024. Isabelle Roldan RN us Golden Guadalupe MD [facility] PRO CEDURES Final Result * eGFR (04/08/2024 7:11 AM ART INSTALLER) eGFR 90 >=60 mL/min/1. 73 m2 Comment: [...] last reviewed 2021. Blood 04/08/2024 7:11 AM ART INSTALLER 04/08/2024 7:21 AM ART INSTALLER Elisabeth Mg MD LAB BLOOD ORDERABL ES Final Result [facility] Department [place] [address] * (ABNORMAL) Lipid panel (04/08/2024 7:11 AM ART INSTALLER) Cholesterol 93 30 - 199 mg/dL Comment: [...] revised on 2018. Triglycerides 80 <=149 mg/dL [facility] Comment: Interpretive Data Ages < or [...] revised on 2018. HDL 39(L) >=40 mg/dL [facility] Comment: Interpretive Data Ages < or [...] on 2018. LDL, calculated 38 <=129 mg/dL [facility] Comment: Interpretive Data Ages < or [...] on 2024. Non-HDL Cholesterol 54 mg/dL [facility] Comment: Interpretive Data Ages < or = [...] revised on 2018. Chol/HDL ratio 2 [facility] Blood 04/08/2024 7:11 AM ART INSTALLER 04/08/2024 7:21 AM ART INSTALLER Elisabeth Mg MD LAB BLOOD ORDERABL ES Final Result [facility] Department [place] [address] * POCT hemoglobin A1c (04/06/2024 10:08 AM ART INSTALLER) Hgb A1C, POC 5.5 4.0 - 5.6 % Est Average Gluc POC 111 mg/dL [facility] Comment: The ADA recommends reporting an estimated Average Glucose (eAG) with all Hemoglobin A1c results using the equation derived from a study of 507 normal and diabetic adults. Minority populations were underrepresented and children were not included. (Diabetes Care 31:2545-8011, 2008). The eAG is not equivalent to a fasting glucose. Blood 04/06/2024 10:0 8 AM ART INSTALLER 04/06/2024 10:08 AM ART INSTALLER Elisabeth Mg MD POINT OF CARE TEST ORDERABLES Final Result Performing Organization Address City/State/[facility] Co de Phone Number [facility] Department [place] [address] from Last 3 Months or Most Recently Relevant to Health Maintenance Insurance MEDICARE [facility] MEDICARE MEDICARE [facility] Advance Directives For more information, please contact: [phone] * Full Code (Latest Code Status on File) Date Activated Date Inactivated Comments 04/07/2024 5:54 PM 04/10/2024 6:36 PM Care Teams Shipping Manager Relationship Specialty Start Date End Date Candy August MD PCP - General Family Medicine 01/30/22
--- OUTSIDE RECORDS SUMMARY | 2024-07-27 21:52 | XMS_ITS | Patient Health Summary ---
Author Organization [facility] Address [address] [place] [address] Care Team Providers Care Rehabilitation Worker Name Role Phone Unknown, Provider Primary Care Provider Unavaila ble Note from [facility],non-owned Affiliates and Associated Physician Practices is amultiple site organization consisting of ambulatory clinics and hospital sitesin [place], [place], [place] and [place]. This disclosure is being madepursuant to the Care Everywhere program and may not contain all information available regarding this patient. Last updated 18.[facility] Allergies * Codeine(Vomiting) -Low [...] mouth 2 times daily * Multiple Minerals-Vitamins (xmxufac-mwsyraqym-mnfm-D3) TABS tablet Take by mouth once daily [...] PM CDT Medical Devices Implanted Type Area Qa Test Analyst Device Identifier Shelf Expiration Date Model / Serial / Lot Ra Lead [employer] 5076-45 / [id number] / Rv Lead [employer] 5076-52 / [id number] / Pacemaker-2/9/202 3 Implanted: 023 (Quantity not on file) [employer] [id number] / [id number] / Description:[id number] [place] XT DR MARTIN Jaramillo- MRI conditional to 1.5T or 3T- 07/17/23 [...] EVAL CSF (08/16/2023 4:52 PM CDT) Pathologist [facility] See Scanned Document 09/04/2023 11:58 AM CDT [facility] REF LAB NON INTERF Cerebral spinal fluid CEREBROSPINAL FLUID SPECIMEN / Unknown Collection / Unknown 08/16/2023 4:52 PM CDT 08/16/2023 5:20 PM CDT Judy Camacho MD LAB - BODY FLUID ORD ERABLES [facility] REF LAB NON INTERF [address] [place] [address], [facility] [phone] * MENINGITIS/ENCEPHALITIS PANEL CSF (08/16/2023 4:52 PM CDT) Pathologist [facility] Escherichia coli K1 Not detected Not detected 08/16/2023 8:56 PM CDT [facility] Haemophilus influenzae Not detected Not detected 08/16/2023 8:56 PM CDT [facility] Listeria monocytogenes Not detected Not detected 08/16/2023 8:56 PM CDT [facility] Neisseria meningitis Not detected Not detected 08/16/2023 8:56 PM CDT [facility] Streptococcus agalactiae (Group B) Not detected Not detected 08/16/2023 8:56 PM CDT [facility] Streptococcus pneumoniae Not detected Not detected 08/16/2023 8:56 PM CDT [facility] Cytomegalovirus Not detected Not detected 08/16/2023 8:56 PM CDT [facility] Enterovirus Not detected Not detected 08/16/2023 8:56 PM CDT [facility] Herpes simplex Virus 1 Not detected Not detected 08/16/2023 8:56 PM CDT [facility] Herpes simplex Virus 2 Not detected Not detected 08/16/2023 8:56 PM CDT [facility] Human Herpesvirus 6 Not detected Not detected 08/16/2023 8:56 PM CDT [facility] Human Parechovirus Not detected Not detected 08/16/2023 8:56 PM CDT [facility] Varicella zoster Virus Not detected Not detected 08/16/2023 8:56 PM CDT [facility] Cryptococcus neoformans/gattii Not detected Not detected 08/16/2023 8:56 PM CDT [facility] Cerebral spinal fluid CEREBROSPINAL FLUID SPECIMEN / Unknown Collection / Unknown 08/16/2023 4:52 PM CDT 08/16/2023 4:52 PM CDT Narrative [facility] - 08/16/2023 8:56 PM CDT Meningitis/Encephalitis PCR CSF Panel performed by [employer] FilmArray multiplex PCR. A negative [employer] ME Panel result does not exclude the possibility of [employer] infection and should not be used as [...] Camacho MD LAB - MICROBIOLOGY O RDERABLES [facility] [address] [place] [address], [facility] [phone] * LAB MISC TEST (NOT BLOOD) (08/16/2023 4:52 PM CDT) Test Name Alzheimer's Disease Evaluation 08/28/2023 12:06 PM CDT [facility] REF LAB NON INTERF Test Result See Scanned Report 08/28/2023 12:06 PM CDT [facility] REF LAB NON INTERF Comment Ref Lab naik 08/28/2023 12:06 PM CDT [facility] REF LAB NON INTERF Other CEREBROSPINAL FLUID SPECIMEN / Unknown Collection / Unknown 08/16/2023 4:52 PM CDT 08/19/2023 10:55 AM CDT Keyanna Pantoja LAB - BODY FLUID ORD ERABLES Performing Organization Address City/[facility]/ZIP Co de Phone Number [facility] REF LAB NON INTERF [address] [place] [address], [facility] [phone] * VARICELLA ZOSTER PCR (08/16/2023 4:52 PM CDT) Pathologist [facility] Varicella zoster Virus PCR Not Detected 08/18/2023 6:36 AM CDT [facility] [[email or web address]] [employer] ([facility]) Comment: NOT DETECTED - A negative result does not rule out the presence of PCR inhibitors in the patient specimen or assay specific nucleic acid in concentrations below the level of detection by the assay. INTERPRETIVE INFORMATION: Varicella-Zoster Virus by PCR This test was developed and its performance characteristics determined by [facility]. It has not been cleared or approved by the US Food and Drug Administration. This test was performed in a CLIA certified laboratory and is intended for clinical purposes. Performed By: [facility] [address] [place] [id number] Paid Search Marketing Strategist: Chito Lebron MD, PhD CLIA Number: [id number] Varicella zoster Virus Source CSF 08/18/2023 6:36 AM CDT [facility] [[email or web address]] [employer] [facility]) Cerebral spinal fluid CEREBROSPINAL FLUID SPECIMEN / Unknown Collection / Unknown 08/16/2023 4:52 PM CDT 08/16/2023 4:52 PM CDT Judy Camacho MD LAB - MICROBIOLOGY O RDERABLES [facility]) ([facility]) [address] [place] [address], [facility] * (ABNORMAL) PROTEIN CSF (08/16/2023 4:52 PM CDT) Protein CSF 70(H) 15 - 45 mg/dL 08/16/2023 5:26 PM CDT [facility] Cerebral spinal fluid CEREBROSPINAL FLUID SPECIMEN / Unknown 08/16/2023 4:52 PM CDT 08/16/2023 5:12 PM CDT Judy Camacho MD LAB - BODY FLUID ORD ERABLES Performing Organization Address City/[facility]/ZIP Co de Phone Number [facility] [address] [place] [phone], [place] [phone] * (ABNORMAL) GLUCOSE CSF (08/16/2023 4:52 PM CDT) Glucose CSF 73(H) 40 - 70 mg/dL 08/16/2023 5:26 PM CDT [facility] Cerebral spinal fluid CEREBROSPINAL FLUID SPECIMEN / Unknown 08/16/2023 4:52 PM CDT 08/16/2023 5:12 PM CDT Judy Camacho MD LAB - BODY FLUID ORD ERABLES Performing Organization Address City/[facility]/ZIP Co de Phone Number [facility] [address] [place] [address], [place] [phone] * CULTURE CSF+GRAM STAIN (08/16/2023 4:51 PM [...] Camacho MD LAB - MICROBIOLOGY O RDERABLES [facility] [address] [place] [address], [facility] [phone] * LAB MISC TEST (08/16/2023 4:51 PM CDT) [facility] Test Name Beta-Amyloi d 42/40 Ratio, CSF 08/29/2023 7:40 AM CDT [facility] Test Result See Scanned Report 08/29/2023 7:40 AM CDT [facility] Comment Ref [facility] 08/29/2023 7:40 AM CDT [facility] Blood MISCELLANEOUS SAMPLES / Unknown Lab Venipuncture / Unknown 08/16/2023 4:51 PM CDT 08/16/2023 4:51 PM CDT Judy Camacho MD LAB SEND OUT Performing Organization Address City/[facility]/ZIP Co de Phone Number [facility] [address] [place] [address] * HERPES SIMPLEX 1+2 PCR CSF (08/16/2023 4:51 PM CDT) [facility] Herpes Simplex Virus 1 PCR CSF Not detected Not detected 08/16/2023 10:57 PM CDT [facility] Herpes Simplex Virus 2 PCR CSF Not detected Not detected 08/16/2023 10:57 PM CDT [facility] Cerebral spinal fluid CEREBROSPINAL FLUID SPECIMEN / Unknown Collection / Unknown 08/16/2023 4:51 PM CDT 08/16/2023 4:51 PM CDT Judy Camacho MD LAB - MICROBIOLOGY O RDERABLES [facility] [address] [place] [address], [facility] [phone] * ANGIOTENSIN CONVERTING ENZYME CSF (08/16/2023 4:51 PM CDT) [facility] Angiotensin-Convert ing Enzyme CSF 0.5 0.0 - 2.5 U/L 08/17/2023 4:41 PM CDT [id number] ([facility]) Comment: This test was developed and its performance characteristics determined by [facility]. It has not been cleared or approved by the US Food and Drug Administration. This test was performed in a CLIA certified laboratory and is intended for clinical purposes. Performed By: [facility] [address] [place] [address] Paid Search Marketing Strategist: Chito Lebron MD, PhD CLIA Number: [id number] Cerebral spinal fluid CEREBROSPINAL FLUID SPECIMEN / Unknown 08/16/2023 4:51 PM CDT 08/16/2023 4:51 PM CDT Judy Camacho MD LAB - BODY FLUID ORD ERABLES [facility] [[email or web address]] [employer] ([facility]) [address] [place] [address], [facility] * PRION MARKERS (CJD) CSF (08/16/2023 4:51 PM CDT) Protein 14-3-3 CSF See Note 2023 7:57 PM CDT [facility] [[email or web address]] [facility] ([facility]) Comment: Specimen Condition: Slt Bloody [...] appropriate. If prion disease is suspected, the [facility] is able to offer a no-cost autopsy to determine whether or not prions are the cause of the disease. [facility] staff (phone [phone]) are available to work with healthcare providers and the patient's family to plan an autopsy if desired. Chau Cho, PhD. Disclaimer: These tests were developed and their performance characteristics determined by the [facility], and have not been cleared or approved by the FDA. These assays should be used in conjunction with other clinical, pathological and laboratory findings. Performed By: [facility] [address] [place] [address] Cerebral spinal fluid CEREBROSPINAL FLUID SPECIMEN / Unknown Collection / Unknown 08/16/2023 4:51 PM CDT 08/16/2023 4:51 PM CDT Judy Camacho MD LAB - BODY FLUID ORD ERABLES [facility]) ([facility]) [address] [place] [address], [facility] * (ABNORMAL) CELL COUNT W DIFFERENTIAL CSF (08/16/2023 4:49 PM CDT) Tube Number TUBE 4 08/16/2023 5:29 PM CDT [facility] Xant[employer] PRESENT(A ) ABSENT 08/16/2023 5:29 PM CDT [facility] CSF Appearance CLEAR 08/16/2023 5:29 PM CDT [facility] CSF Color STRAW 08/16/2023 5:29 PM CDT [facility] Total Nucleated Cells CSF 2 <=5 x10E6/L 08/16/2023 5:29 PM CDT [facility] RBC Count CSF 412(H) <1 x10E6/L 08/16/2023 5:29 PM CDT [facility] Cerebral spinal fluid CEREBROSPINAL FLUID SPECIMEN / Unknown 08/16/2023 4:49 PM CDT 08/16/2023 4:49 PM CDT Judy Camacho MD LAB - BODY FLUID ORD ERABLES Performing Organization Address City/State/[facility] Co de Phone Number [facility] [address] [place] [phone] [phone] * FL LUMBAR PUNCTURE (08/16/2023 4:30 PM CDT) Anatomical Region Laterality Modality Spine Radiographic Heather ging 08/16/2023 4:19 PM CDT Impressions 08/16/2023 5:09 PM CDT IMPRESSION: Successful lumbar puncture under fluoroscopic guidance at L2-L3. > Dictated by Aryan Jarrett DO (radiology manager). I, Marquita Max MD have personally reviewed and interpreted this examination/study. > Interpreting Provider: Marquita Max MD on 08/16/2023 5:09 PM Narrative 08/16/2023 5:09 PM CDT PROCEDURE: FL LUMBAR PUNCTURE, DATE/TIME OF EXAM: 08/16/2023 1:48 PM, LOCATION [facility] INDICATION: F03.90: Dementia, unspecified dementia severity, unspecified [...] DATE/TIME OF EXAM: 08/16/2023 1:48 PM, LOCATION [facility] INDICATION: F03.90: Dementia, unspecified dementia severity, unspecified [...] L2-L3. > Dictated by Aryan Jarrett DO (radiology manager). I, Marquita Max MD have personally reviewed [...] change. > Dictated by Jaciel Beck DO (radiology manager). ITiffany MD have personally reviewed and interpreted this examination/study. > Interpreting Provider: Tiffany Morrow MD on 08/26/2023 2:32 PM Narrative 08/26/2023 2:32 PM CDT PROCEDURE: MRI BRAIN WWO CONTRAST, DATE/TIME OF EXAM: 08/16/2023 2:19 PM, LOCATION [facility] INDICATION: F03.90: Dementia, unspecified dementia severity, unspecified [...] CONTRAST, DATE/TIME OF EXAM: 08/16/2023 2:19PM, LOCATION [facility] INDICATION: F03.90: Dementia, unspecified dementia severity, unspecified [...] change. > Dictated by Jaciel Beck DO (radiology manager). I, Tiffany Morrow MD have personally reviewed and interpreted this examination/study. > Interpreting Provider: Tiffany Morrow MD on 08/26/2023 2:32 PM Ordering Provider Unlisted MR ORDERAB LES * (ABNORMAL) CREATININE - POCT INTERFACED (08/16/2023 1:38 PM CDT) Creatinine POCT 0.75 0.30 - 1.30 mg/dL 08/16/2023 2:19 PM CDT [facility] eGFR 81(L) >=90 mL/min/1.7 3 m2 08/16/2023 2:19 PM CDT [facility] Blood BLOOD SPECIMEN / Unknown 08/16/2023 1:38 PM CDT 08/16/2023 2:19 PM CDT Judy Camacho MD LAB - POINT OF CARE ORDERABLES [facility] [address] [place] [address], [facility] [phone] * ETT LINE PERFORMABLE (08/16/2023 1:20 PM CDT) Narrative Luli Poe Anes Asst - 08/16/2023 1:20 PM CDT Luli Poe Anes Asst 08/16/2023 1:20 PM Endotracheal Tube Placement: Patient Location: Other - please comment ([facility]). Intubation Event Date/Time: 08/16/2023 1:11 PM Procedure: intubation ([id number]). Procedure Section: Sedation: IV sedation. Indications for [...] - 115 mg/dL 08/19/2023 5:18 AM CDT [facility] Specimen Type Cap Fingerstick 2023 5:18 AM CDT [facility] Blood BLOOD SPECIMEN / Unknown 08/16/2023 11:38 AM CDT 08/19/2023 5:17 AM CDT Judy Camacho MD LAB - POINT OF CARE ORDERABLES Performing Organization Address City/State/[facility] Co de Phone Number [address] [address], [facility] [phone] Care Teams Rehabilitation Worker Relationship Specialty Start Date End Date Unknown, Provider PCP - General 08/14/23
--- NOTE | 2024-07-27 22:48 | ED_ITS ---
HPI - Extremity Injury (Lower) General Chief Complaint: Extremity Injury, Lower Stated Complaint: Fall -injury to right hip Time Seen by Provider: 07/27/24 21:28 Source: patient and family Mode of arrival: ambulatory Limitations: dementia History of Present Illness HPI Narrative: Patient is a 78-year-old female, with past medical history of Lewy Body dementia, who presents the ED with her with report of a fall. at bedside assisted in providing information. Reports patient had a fall earlier this afternoon outside onto her right side. He does not know if she hit her head. He helped her off the ground and she denies any pain at first. Later throughout the night, she began having pain throughout her right hip, worse with ambulating. He states she required a lot of assistance with ambulation. Brought here for further evaluation. Patient denies any concerns upon my evaluation. Thinks her is her father. Related Data Home Medications ?Medication ?Instructions ?Recorded ?Confirmed ?Last Taken ?Type wrtkpmoq-liza-ncxn 8 mg-folic 400 1 tablet PO DAILY 05/21/19 03/24/24 06/27/22 History mcg-K 50 mcg-lutein 300 mcg tablet (Ultimate Women's Complete 50 Plus) biotin 10,000 mcg capsule 10,000 mcg PO DAILY 10/20/19 03/24/24 06/27/22 History cinnamon bark 500 mg capsule 1,000 mg PO DAILY 10/20/19 03/24/24 06/27/22 History cholecalciferol (vitamin D3) 25 40 mcg PO DAILY 04/21/20 03/24/24 06/27/22 History mcg (1,000 unit) capsule potassium gluconate 595 mg (99 mg) 99 mg PO DAILY 05/25/20 03/24/24 06/27/22 History tablet omega 3,6,9 combination no.7 92 mg 1,600 mg PO DAILY 11/13/21 03/24/24 06/27/22 History (43 mg-22 [id number]) chew tablet calcium carbonate 600 mg PO DAILY 09/04/22 03/24/24 Unknown History ibuprofen 200 mg tablet 200 mg PO Q4-6H PRN 03/10/24 03/24/24 Unknown History Allergies Allergy/AdvReac Type Severity Reaction Status Date / Time codeine Allergy Severe Vomiting Verified 07/27/24 20:24 Btvlthr-FGF-CvI Reductase AdvReac Mild Muscle Pain Verified 07/27/24 20:24 Inhibitor (Hvoasqc-Iqq-Hbf Reductase Inhibitor) Review of Systems Review of Systems: All systems reviewed & are unremarkable except as noted in HPI. All systems reviewed & are unremarkable except as noted in HPI and below PMFSH Past Medical History Medical History Dementia of Alzheimer's type with behavioral disturbance Memory loss Intermittent complete heart block Back pain Osteopenia after menopause Osteoarthritis Hyperlipidemia LDL goal <100 Type 2 diabetes mellitus Surgical History Surgical History Morgan teeth removed History of tonsillectomy and adenoidectomy History of hysterectomy Family History Family History Father Diabetes mellitus Hypertension Family history of cardiovascular disease Mother Family history of Alzheimer's disease Other Osteoporosis Social History Social History Social History: The patient is and lives with her of 55 years. She has 1 biological child and she has 1 adopted. He is retired from [employer] which she had her 1st child. She is lifelong nonsmoker. She does not use any alcohol marijuana or illicit drugs. Her is the durable power real estate attorney for healthcare. Code status full code Caffeine- none Smoking packs per day: 0 Smoking cigarettes per day: 0.0 Years smoked: 0 Smoking pack-years: 0.00 Smoking status: Never smoker Second hand tobacco smoke exposure: No Alcohol intake: never Substance use: never Substance use type: does not use Do You Feel Safe in your Home?: Yes Lack of Transportation: No Lack of Food: Never True Current Housing: I Have Housing Concerned About Future Housing: No Difficulty Paying Gas/Electric Bills: No Difficulty Paying for Meds: No Currently Unemployed: No Education: High School Diploma/GED Difficulty w/ Childcare or Family Care: No Living arrangements: with family Additional living arrangements comments: ( Michael ) Occupation/Education: retired Additional occupation/education comments: retired Gender identity (if verbalized by the patient): Female Spiritual care concerns: No Exam Narrative: GENERAL: Elderly, frail/thin, non-toxic, in no acute distress. HEAD: Normocephalic, atraumatic. RESPIRATORY: Airway patent, respirations nonlabored. Clear to auscultation bilaterally, no rales, rhonchi, wheezing. CARDIOVASCULAR: Regular rate and rhythm without murmurs, rubs, or gallops. Peripheral pulses intact. MUSCULOSKELETAL: Moves all extremities. No gross deformities. No significant appreciable tenderness over right hip joint. Sensation intact. SKIN: Warm, dry, normal color. NEURO: Alert, answers questions and follows commands but confused. Speech clear. Cranial nerves II-XII grossly intact. Steady gait. No ataxic movements. PSYCHIATRIC: Borderline agitated but redirectable Course Vital Signs Vital signs: Vital Signs Temperature 98 F 07/27/24 20:32 Pulse Rate 93 07/27/24 20:32 Respiratory Rate 15 07/27/24 20:32 Blood Pressure 122/50 L 07/27/24 20:32 Pulse Oximetry 100 07/27/24 20:32 Temperature 98 F 07/27/24 20:32 Pulse Rate 93 07/27/24 20:32 Respiratory Rate 15 07/27/24 20:32 Blood Pressure 122/50 L 07/27/24 20:32 Pulse Oximetry 100 07/27/24 20:32 MDM - Extremity Injury (Lower) MDM Narrative Medical decision making narrative: Patient with history of Lewy body dementia, brought to the ED by with report of a fall, complaining of right hip pain. Vital signs are stable upon arrival. Patient in no acute distress. Somewhat agitated at times related to dementia, which reports is not abnormal for her. Neurovascularly intact. No focal deficits on exam. Initial x-ray of right hip with possible pelvic fracture, recommended CT for further evaluation. CT scan of pelvis was obtained and does show subtle nondisplaced superior pubic rami fracture. No other fractures identified. Does show evidence of possible proctitis. Patient has no complaints upon my evaluation. Denying even pain in her hip. No reports of rectal pain or painful bowel movements. Patient has been ambulatory throughout the ED without issue. She complains of minimal pain to her right hip. Discussed imaging findings with , advised weight-bearing as tolerated. Advised patient may need or benefit from a cane or walker for assistance with ambulation. Will need to follow-up with orthopedics for further evaluation. Patient recently sustained a fracture to her right upper arm. She saw Dr. Pritchett for this. Recommended she have follow-up with him for pelvic fracture. is in agreement this plan. I did discuss possibility of admission for rehab, however he does feel comfortable taking patient home. was unsure if patient hit her head the fall. Patient is unable to provide history. CT brain was obtained and negative for acute traumatic findings. Patient discharged. Given strict return precautions. in agreement with plan. Discharged in stable condition. Medical Records Attestation: I reviewed the patient's medical records. Imaging Data Attestation: I personally reviewed and interpreted this imaging study as follows: Radiologist's impression: ITS Impressions Hip X-Ray 07/27/24 20:50 IMPRESSION: Possible superior pubic ramus fracture. Consider CT of the pelvis for further evaluation. Pelvis CT 07/27/24 22:24 IMPRESSION: Subtle nondisplaced superior pubic ramus fracture. No other pelvic or hip fracture detected. Rectal wall thickening, correlate for clinical findings/symptoms of proctitis. A rectal mass is not excluded. STAT RAD CT brain: No intracranial hemorrhage. No midline shift or mass effect. The territorial alvarez-white matter differentiation is maintained throughout. Age-related cerebral volume loss. Periventricular and subcortical white matter hypoattenuation, consistent with chronic microangiopathy. Discharge Plan Discharge Clinical Impression: Fall from ground level Fracture of superior pubic ramus Qualifiers: Encounter type: initial encounter Fracture type: closed Laterality: right Qualified Code(s): S32.511A - Fracture of superior rim of right pubis, initial encounter for closed fracture Lewy body dementia Qualifiers: Dementia severity: unspecified severity Dementia behavioral or psychological symptom: unspecified whether behavioral, psychotic, or mood disturbance or anxiety Qualified Code(s): G31.83 - Neurocognitive disorder with Lewy bodies Patient Disposition: Home, Self-Care Condition: Stable Instructions: Antibiotic Form, Pelvic Fracture (ED) Additional Instructions: Patient was diagnosed with a fracture of her right superior pubic rami. Recommend Tylenol, ice as needed for pain. Recommend patient utilize walker or cane for assistance with walking as needed. Recommend close follow-up with orthopedics for further evaluation. Return to the ED if patient experiences worsening or severe pain, recurrent fall or injury, unable to ambulate, numbness of leg, or any other symptoms of concern. Patient Language: Belgian Prescriptions: No Action Ultimate Women Complete 50Plus 8 mg iron-400 mcg-300 mcg tablet 1 tablet PO DAILY cinnamon bark 500 mg capsule 1,000 mg PO DAILY biotin 10,000 mcg capsule 10,000 mcg PO DAILY cholecalciferol (vitamin D3) 25 mcg (1,000 unit) capsule 40 mcg PO DAILY calcium carbonate 600 mg calcium (1,500 mg) tablet 600 mg PO DAILY metformin 500 mg tablet extended release 24 hr 1,500 mg PO QPM Qty: 270 3RF (DME) lancets [Accu-Chek Softclix Lancets] [facility] See Rx Instructions .Route Qty: 100 6RF Rx Instructions: use As directed daily to check glucose ezetimibe 10 mg tablet 10 mg PO QPM Qty: 90 3RF potassium gluconate 595 mg (99 mg) tablet 99 mg PO DAILY omega 3,6,9 combination no.7 92 mg (43 mg-22 [id number]) tablet,chewable 1,600 mg PO DAILY memantine [Namenda XR] 28 mg capsule,sprinkle,ER 24hr 28 mg PO DAILY Qty: 90 2RF alendronate 70 mg tablet 70 mg PO WEEKLY 90 Days Qty: 13 2RF ibuprofen 200 mg tablet 200 mg PO Q4-6H PRN ondansetron 4 mg tablet,disintegrating 4 mg PO Q8H PRN (Reason: nausea and vomiting) Qty: 14 0RF (DME) accu check soft click pen See Rx Instructions .Route .MEDSUPPLY Qty: 1 0RF Rx Instructions: As directed daily (DME) blood-glucose meter [Accu-Chek Guide Glucose Meter] [facility] See Rx Instructions .ROUTE .MEDSUPPLY Qty: 1 0RF Rx Instructions: Use to take blood sugar once daily (DME) Accu-Chek Guide test strips Strip See Rx Instructions .ROUTE .MEDSUPPLY Qty: 100 12RF Rx Instructions: Use to check blood sugar once daily lorazepam [Ativan] 0.5 mg tablet 0.5 mg PO TID Qty: 60 2RF Rx Instructions: Hold if excessively drowsy during the daytime. May increase up to 3 times a day if necessary hydrocodone-acetaminophen 5-325 mg tablet 1 tablet PO Q8H PRN (Reason: pain) Qty: 30 0RF sertraline 50 mg tablet 50 mg PO DAILY Qty: 30 2RF Rx Instructions: at HS Follow-up/Referrals: Nirmal Pritchett MD [Physician] - (ORTHOPEDICS) Candy August MD [Primary Care Provider] - Time of Disposition: 01:12
== END 2024-07-28 01:32 | disposition home or self-care (01) ==
PROVIDERS: Emergency Provider Physician Assistant; PCP Family Medicine
DX: S32.511A Fracture of superior rim of right pubis, initial encounter for closed fracture (principal); G31.83 Neurocognitive disorder with Lewy bodies; F02.818 Dementia in other diseases classified elsewhere, unspecified severity, with other behavioral disturbance; G30.9 Alzheimer's disease, unspecified; E78.5 Hyperlipidemia, unspecified; E11.9 Type 2 diabetes mellitus without complications; M85.80 Other specified disorders of bone density and structure, unspecified site; M19.90 Unspecified osteoarthritis, unspecified site; Z90.710 Acquired absence of both cervix and uterus; Z79.84 Long term (current) use of oral hypoglycemic drugs; Z79.899 Other long term (current) drug therapy; W19.XXXA Unspecified fall, initial encounter
CPT/HCPCS: 70450; 72192; 73502; 99284

== ENCOUNTER 2025-03-23 10:22 | Emergency (ER) | payer MEDICARE, OTHER, SELFPAY ==
--- NOTE | ~2025-03-23 | CT_ITS ---
CT HEAD NON-CONTRAST CT C-SPINE Clinical History: FALL Comparison: CT brain 07/27/2024 Technique: Unenhanced axial images skull base to vertex. Coronal, sagittal reformats. Axial images thoracic inlet to skull base. Sagittal and coronal reformats. CT images acquired with automatic exposure control for dose reduction DLP: 605 mGy-cm Findings: Head: Age-related atrophy. Chronic white matter microvascular ischemic changes. Sulci, ventricles: Unremarkable. No intracerebral hemorrhage. No evidence acute territorial infarct. No mass effect, midline shift, intra-/extra-axial fluid collection. Bony calvarium intact. Visualized paranasal sinuses: Clear. Mastoid air cells: Clear. C-spine: No acute fracture or listhesis. Vertebral bodies normal height and alignment. Moderate degenerative changes. Disc spaces maintained. Prevertebral soft tissues within normal limits. Visualized lung apices: Clear. Visualized thyroid: Unremarkable. No enlarged cervical nodes. IMPRESSION: HEAD: 1. No acute intracranial findings. C-SPINE: 1. No acute fracture. Reviewed, dictated and finalized at location R. GER BUSINESS CONTINUITY IMPRESSION: HEAD: 1. No acute intracranial findings. C-SPINE: 1. No acute fracture.
--- NOTE | ~2025-03-23 | XR_ITS ---
PROCEDURE(S): X-ray clavicle left INDICATION(S): Injury and pain with limited range of motion COMPARISON(S): C-spine CT from same day TECHNIQUE: 2 radiographic images were submitted for interpretation. FINDINGS: Bones: On CT, There are some tiny foci of cortical disruption in the medial left clavicle, consistent with tiny minimally displaced fractures. These are not visible by plain film. There are no destructive lesions or other lesions identified. Joints: There are no dislocations identified. There is no evidence of erosive arthropathy. Degenerative change of the AC joint. IMPRESSION: Tiny minimally displaced fracture(s), marking the CT images and not visible by plain film Reviewed, dictated and finalized at location A. TAL SPECIALIST
--- NOTE | ~2025-03-23 | XR_ITS ---
EXAMINATION: XR shoulder LT min 2V, 03/23/2025 14:00 SUPERVISOR FEED HOUSE HISTORY: shoulder pain s/p fall COMPARISON: No comparisons available. Findings: No acute fracture or malalignment. No significant degenerative changes. Soft tissues unremarkable. Impression: No acute fracture or malalignment. Reviewed, dictated and finalized at location P. RVISOR FEED HOUSE Impression: No acute fracture or malalignment.
--- NOTE | ~2025-03-23 | XR_ITS ---
EXAMINATION: XR ribs LT 2V w CXR 2V, 03/23/2025 14:00 VP TALENT MANAGEMENT HISTORY: fall, L sided pain COMPARISON: No comparisons available. Findings: No acute fracture or malalignment. No significant degenerative changes. Soft tissues unremarkable. Impression: No acute fracture or malalignment. Reviewed, dictated and finalized at location P. TALENT MANAGEMENT Impression: No acute fracture or malalignment.
[2025-03-23 10:24] VITALS: BP 117/80; PULSE 80; RESP 16; TEMP 36.2; O2SAT 99
--- OUTSIDE RECORDS SUMMARY | 2025-03-23 11:56 | XMS_ITS | Clinical Summary ---
Author Organization [facility] Address [address] [place] [address] Care Team Providers Care Cook Apprentice Pastry Name Role Phone Unknown, Provider Primary Care Provider Unavaila ble Source Comments [facility],non-owned Affiliates and Associated Physician Practices is amultiple site organization consisting of ambulatory clinics and hospital sitesin [place], [place], [place] and [place]. This disclosure is being madepursuant to the Care Everywhere program and may not contain all information available regarding this patient. Last updated 18.[facility] Allergies Active Allergy Reactions Criticality Noted Date Comments Codeine Vomiting Low 03/08/2022 Medications * Be aware that medications may not be up to date on this document. Alwaysverify current medications with the patient. Multiple Vitamins-Minera ls (MULTIVITAMIN ADULTS 50+ PO) Take 1 tablet by mouth once daily Active Multiple Vitamins-Minera ls (PreserVision AREDS 2) capsule Active omega 3 (Fish Oil) 1200 MG capsule 1 (one) capsule Acti ve Biotin 10 MG Active Chromium-Cinnam on 100-500 MCG-MG Active donepezil (Aricept) 5 MG tablet Take 1 (one) tablet by mouth at bedtime 3 Active lisinopril (Prinivil; Zestril) 5 MG tablet Take 1 (one) tablet by mouth once daily 3 Active Potassium Citrate,Element al K, 99 MG CAPS Take 1 capsule [...] by mouth 2 times daily Active Multiple Minerals-Vitami ns (calcium-magnes ium-zinc-D3) TABS tablet Take by mouth once daily Active LORazepam (Ativan) 0.5 MG tablet TAKE 1 TABLET BY MOUTH THREE TIMES DAILY FOR MYOCLONUS. HOLD IF EXCESSIVELY DROWSY DURING THE DAYTIME. MAY INCREASE UP TO 3 TIMES A DAY IF NECESSARY. 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 Gender Identity Not on file Sexual Orientation [...] 3:11 PM CDT Height 160 cm (5' 3) 12/25/2023 3:11 PM CDT Body Mass Index [...] yrs (1 - 1-dose 75+ series) 08/28/2019 DEPRESSION SCREENING 05/20/2024 COVID-19 VACCINE (1 - 2023-2 5 season) 2025 INFLUENZA VACCINE (#1) 2025 HEPATITIS B VACCINE Aged Out No longe r eligible based on patient's age to complete this topic HIB VACCINE Aged Out No longer eligi ble based on patient's age to complete this topic HPV VACCINE Aged Out No longer eligi ble based on patient's age to complete this topic MENINGOCOCCAL (Group B) VACC INE SHARED DECISION-MAKING Aged Out No longer eligibl e based on patient's age to complete this topic MENINGOCOCCAL GROUPS A/C/Y/W VACCINE Aged Out No longer eligible b ased on patient's age to complete this topic Medical Devices Implanted Type Area Block And Case Maker Device Identifier Shelf Expiration Date Model / Serial / Lot Ra Lead [employer] 5076-45 / [id number] / Rv Lead [employer] 5076-52 / [id number] / Pacemaker- 3 Implanted: 023 (Quantity not on file) [employer] [id number] / [id number] / Description:[id number] Analilia XT DR MARTIN Jaramillo- MRI conditional to 1.5T or 3T-LT 07/17/23 RA 5076-45 RV 5076-52 Insurance MEDICARE [facility] [place] [address] Care Teams Cook Apprentice Pastry Relationship Specialty Start Date End Date Unknown, Provider PCP - General 08/14/23
--- OUTSIDE RECORDS SUMMARY | 2025-03-23 11:56 | XMS_ITS | Clinical Summary ---
Author Organization [facility] Address [address] [place] [id number] Care Team Providers Care Lock Maintenance Supervisor Name Role Phone Candy August MD Primary Care Provider [phone] Social History Tobacco Use Types Packs/Day Years Used Date Smoking Tobacco: Never Assessed Comments Unknown Sex and Gender Information Value Date Recorded Sex Assigned at Not on file Legal Sex Female 5:23 PM CDT Gender Identity Not on file Sexual Orientation Not on file Plan of Treatment Health Maintenance Due Date Last Done Comments DTaP, Tdap and Td Vaccines ( 1 - Tdap) 08/28/1963 Pneumococcal Vaccine: 50+ Ye ars (1 of 1 - PCV) 1994 Zoster Vaccines (1 of 2) 1994 Annual Medicare Wellness Visit 2009 Dexa Scan (General) 2009 RSV Immunization or 60+ Years (1 - 1-dose 75+ series) 08/28/2019 COVID-19 Vaccine ( - 2024-2 6 season) 2025 Influenza Adult (#1) 2025 Hepatitis A Vaccines Aged Out No long er eligible based on patient's age to complete this topic Meningococcal B Vaccine Aged Out No l onger eligible based on patient's age to complete this topic Meningococcal Vaccine Aged Out No carlo kenny eligible based on patient's age to complete this topic RSV Immunizations Under 20 Months Aged Out No longer eligible based on patient's age to complete this topic Medical Devices Implanted Type Area Vamp Marker Device Identifier Shelf Expiration Date Model / Serial / Lot Ra Lead-06/28/2022 Implanted:Qty: 1 on 06/28/2022 by Kelsei Ulrich MD Lead Implant Right: Atrium [employer] CARDIAC RHYTHM AND HEART FAILURE - DIV M 5076-45 / [id number] / Rv Lead-06/28/2022 Implanted:Qty: 1 on 06/28/2022 by Kelsie Ulrich MD Lead Implant Right: Ventricle [employer] CARDIAC RHYTHM AND HEART FAILURE - DIV M 5076-52 / [id number] / Pacemaker-2022 Implanted:Qty: 1 on 06/28/2022 by Kelsie Ulrich MD Pacemaker Chest [employer] CARDIAC RHYTHM AND HEART FAILURE - DIV M [id number] / [id number] / Description:MRI Conditional under following conditions: [...] (4W/kg or less whole body) Insurance MEDICARE [facility] Care Teams Lock Maintenance Supervisor Relationship Specialty Start Date End Date Candy August MD [address] [place] [address] PCP - General FAMILY PRACTICE 06/05/23
--- NOTE | 2025-03-23 12:44 | ED.FALL ---
HPI - Fall General Chief Complaint: Fall Stated Complaint: fall Time Seen by Provider: 03/23/25 12:44 Source: patient and family Mode of arrival: wheelchair Limitations: dementia History of Present Illness HPI Narrative: Patient is an 79-year-old female, past medical history of dementia, pacemaker, who presents the ED with report of a fall. at bedside provided information. Reports patient had a fall in the bathroom last night and landed on her left side against her bathroom vanity. Initially did not have any pain, but began complaining of pain to her left shoulder and left collarbone region throughout the night. Took Tylenol with improvement. Unsure of head injury. Denies LOC. patient denies any other areas of pain. She is not on any anticoagulation. Related Data Home Medications ?Medication ?Instructions ?Recorded ?Confirmed ?Last Taken ?Type gfqrlloc-rhoc-yrww 8 mg-folic 400 1 tablet PO DAILY 05/21/19 02/15/25 06/27/22 History mcg-K 50 mcg-lutein 300 mcg tablet (Ultimate Women's Complete 50 Plus) biotin 10,000 mcg capsule 10,000 mcg PO DAILY 10/20/19 02/15/25 06/27/22 History cinnamon bark 500 mg capsule 1,000 mg PO DAILY 10/20/19 02/15/25 06/27/22 History potassium gluconate 595 mg (99 mg) 99 mg PO DAILY 05/25/20 02/15/25 06/27/22 History tablet omega 3,6,9 combination no.7 92 mg 1,600 mg PO DAILY 11/13/21 02/15/25 06/27/22 History (43 mg-22 in-[id number]) chew tablet calcium carbonate 600 mg PO DAILY 09/04/22 02/15/25 Unknown History Allergies Allergy/AdvReac Type Severity Reaction Status Date / Time codeine Allergy Severe Vomiting Verified 03/23/25 13:44 Vpgfldg-FIW-AlP Reductase AdvReac Mild Muscle Pain Verified 03/23/25 13:44 Inhibitor (Rlwjgka-Wfv-Kzr Reductase Inhibitor) Review of Systems Review of Systems: ROS unobtainable: Yes unobtainable due to medical condition PMFSH Past Medical History Medical History Hearing loss Impacted cerumen Cardiac pacemaker Dementia of Alzheimer's type with behavioral disturbance Memory loss Intermittent complete heart block Back pain Osteopenia after menopause Osteoarthritis Hyperlipidemia LDL goal <100 Type 2 diabetes mellitus Surgical History Surgical History History of surgery on upper extremity [place] teeth removed History of tonsillectomy and adenoidectomy History of hysterectomy Family History Family History Father Diabetes mellitus Hypertension Family history of cardiovascular disease Mother Family history of Alzheimer's disease Other Osteoporosis Social History Social History Social History: The patient is and lives with her of 55 years. She has 1 biological child and she has 1 adopted. He is retired from [employer] which she had her 1st child. She is lifelong nonsmoker. She does not use any alcohol marijuana or illicit drugs. Her is the durable power geotechnical field technician for healthcare. Code status full code Caffeine- none Smoking packs per day: 0 Smoking cigarettes per day: 0.0 Years smoked: 0 Smoking pack-years: 0.00 Smoking status: Never smoker Second hand tobacco smoke exposure: No Alcohol intake: never Substance use: never Substance use type: does not use Do You Feel Safe in your Home?: Yes Lack of Transportation: No Lack of Food: Never True Current Housing: I Have Housing Concerned About Future Housing: No Difficulty Paying Gas/Electric Bills: No Difficulty Paying for Meds: No Currently Unemployed: No Education: High School Diploma/GED Difficulty w/ Childcare or Family Care: No Living arrangements: with family Additional living arrangements comments: ( Michael ) Occupation/Education: retired Additional occupation/education comments: retired Gender identity (if verbalized by the patient): Female Spiritual care concerns: No Exam Narrative: GENERAL: Elderly, thin/frail, non-toxic, in no acute distress. HEAD: Normocephalic, atraumatic. RESPIRATORY: Airway patent, respirations nonlabored. Clear to auscultation bilaterally, no rales, rhonchi, wheezing. Pacemaker L upper chest. CARDIOVASCULAR: Regular rate and rhythm without murmurs, rubs, or gallops. Radial pulses strong and easily palpable MUSCULOSKELETAL: Moves all extremities. No gross deformities. Mild TTP over L clavicular region, L anterior shoulder. No palpable deformities. No significant swelling/bruising. Sensation intact throughout LUE SKIN: Warm, dry, normal color. NEURO: Alert, answers some questions. Pleasantly confused. Speech clear. Cranial nerves II-XII grossly intact. No ataxic movements. PSYCHIATRIC: Appropriate mood and affect. Normal interaction. Course Vital Signs Vital signs: Vital Signs Temperature 97.2 F L 03/23/25 10:24 Pulse Rate 80 03/23/25 10:24 Respiratory Rate 16 03/23/25 10:24 Blood Pressure 117/80 03/23/25 10:24 Pulse Oximetry 99 03/23/25 10:24 Temperature 97.5 F L 03/23/25 13:42 Pulse Rate 80 03/23/25 13:42 Respiratory Rate 16 03/23/25 13:42 Blood Pressure 133/75 03/23/25 13:42 Pulse Oximetry 99 03/23/25 13:42 Oxygen Delivery Room Air 03/23/25 13:42 MDM - Fall MDM Narrative Medical decision making narrative: Patient presented to ED with after mechanical fall last night. History of dementia. Unable to tell me how the fall occurred. Vital signs stable upon arrival. Complaining of pain to left clavicular/shoulder region. CT brain and cervical spine without traumatic findings. Patient?s injury is consistent with musculoskeletal etiology. No signs of neurologic or vascular compromise on physical examination. Compartments are soft without signs of compartment syndrome. X-ray of left clavicle without obvious fracture, however they did see tiny minimally displaced fracture of medial clavicle on CT imaging X-ray of left shoulder w/o additional fx X-ray of chest with left ribs w/o additional fx Patient given a sling for comfort and support. Given Tylenol. Feel she is safe for discharge home. in agreement with plan. Feels comfortable taking patient home. Will refer to orthopedics for further eval. Given return precautions. They are in agreement with plan. Discharged in stable condition. Medical Records Attestation: I reviewed the patient's medical records. Imaging Data Attestation: I personally reviewed and interpreted this imaging study as follows: Radiologist's impression: ITS Impressions Cervical Spine CT 03/23/25 10:44 IMPRESSION: HEAD: 1. No acute intracranial findings. C-SPINE: 1. No acute fracture. Head CT 03/23/25 10:44 IMPRESSION: HEAD: 1. No acute intracranial findings. C-SPINE: 1. No acute fracture. Clavicle X-Ray 03/23/25 11:04 IMPRESSION: Tiny minimally displaced fracture(s), marking the CT images and not visible by plain film Ribs w/Chest X-Ray 03/23/25 14:12 Impression: No acute fracture or malalignment. Shoulder X-Ray 03/23/25 14:12 Impression: No acute fracture or malalignment. Discharge Plan Discharge Clinical Impression: Fall from ground level Fracture of left clavicle Qualifiers: Encounter type: initial encounter Clavicle location: sternal end Fracture type: closed Fracture alignment: anteriorly displaced Qualified Code(s): S42.012A - Anterior displaced fracture of sternal end of left clavicle, initial encounter for closed fracture Dementia Qualifiers: Dementia type: unspecified type Dementia severity: unspecified severity Dementia behavioral or psychological symptom: unspecified whether behavioral, psychotic, or mood disturbance or anxiety Qualified Code(s): F03.90 - Unspecified dementia, unspecified severity, without behavioral disturbance, psychotic disturbance, mood disturbance, and anxiety Patient Disposition: Home Condition: Stable Instructions: Antibiotic Form, Clavicle Fracture (ED), How to Use a Sling (ED) Additional Instructions: Patient's imaging today showed a tiny fracture of her left collarbone. Wear sling for comfort and support. Recommend frequent icing to shoulder, Tylenol as needed for pain. Follow-up with orthopedics and/or primary care doctor for further evaluation. Call offices to make appointment. Return to the ED if patient experiences worsening or severe pain, new fall or injury, numbness, or any other symptoms of concern. Patient Language: Tongan Prescriptions: No Action Ultimate Women Complete 50Plus 8 mg iron-400 mcg-300 mcg tablet 1 tablet PO DAILY cinnamon bark 500 mg capsule 1,000 mg PO DAILY biotin 10,000 mcg capsule 10,000 mcg PO DAILY calcium carbonate 600 mg calcium (1,500 mg) tablet 600 mg PO DAILY (DME) Rollator walker See Rx Instructions .Route .MEDSUPPLY Qty: 1 0RF Rx Instructions: As directed potassium gluconate 595 mg (99 mg) tablet 99 mg PO DAILY omega 3,6,9 combination no.7 92 mg (43 mg-22 hm-85ne-08ma) tablet,chewable 1,600 mg PO DAILY memantine 28 mg capsule,sprinkle,ER 24hr 28 mg PO DAILY Qty: 90 4RF lorazepam [Ativan] 0.5 mg tablet 0.5 mg PO TID Qty: 270 1RF Rx Instructions: Hold if excessively drowsy during the daytime. May increase up to 3 times a day if necessary sertraline 50 mg tablet 50 mg PO DAILY Qty: 90 3RF Rx Instructions: at HS (DME) accu check soft click pen See Rx Instructions .Route .MEDSUPPLY Qty: 1 0RF Rx Instructions: As directed daily (DME) blood-glucose meter [Accu-Chek Guide Glucose Meter] Misc See Rx Instructions .ROUTE .MEDSUPPLY Qty: 1 0RF Rx Instructions: Use to take blood sugar once daily metformin 500 mg tablet extended release 24 hr 1,500 mg PO QPM Qty: 270 3RF ezetimibe 10 mg tablet 10 mg PO QPM Qty: 90 3RF (DME) lancets [Accu-Chek Softclix Lancets] Misc See Rx Instructions .Route Qty: 100 6RF Rx Instructions: use As directed daily to check glucose (DME) Accu-Chek Guide test strips Strip See Rx Instructions .ROUTE .MEDSUPPLY Qty: 100 12RF Rx Instructions: Use to check blood sugar once daily Follow-up/Referrals: Varun Jones MD [Physician, Orthopedics] Referral Note: ORTHOPEDICS Johnathan Pack MD [Primary Care Provider, Family Practice] Time of Disposition: 14:44
[2025-03-23] MEDS: ACETAMINOPHEN 325 MG TABLET 650 MG PO (12:57)
[2025-03-23 13:42] VITALS: BP 133/75; PULSE 80; RESP 16; TEMP 36.4; O2SAT 99
--- OUTSIDE RECORDS SUMMARY | 2025-03-23 14:53 | XMS_ITS | Clinical Summary ---
Author Organization [facility] [address] Address [address] [place] [address] Care Team Providers Care Manager Transit Name Role Phone Candy August MD Primary Care Provider [phone] Allergies Active Allergy Reactions Criticality Noted Date Comments Codeine Vomiting Low 03/08/2022 Dqzxqmj-Psr-Bxi Reductase Inhibitors Diarrhea Low 01/03/2024 Medications metFORMIN XR (GLUCOPHAGE XR) 500 mg 24 hr tabletIndications :type 2 diabetes mellitus Take 3 tablets (1,500 mg total) by mouth daily with dinner 2 Active ezetimibe (ZETIA) 10 mg tabletIndications :hyperlipidemia Take 1 tablet (10 mg total) by mouth daily with dinner 2 Active alendronate (FOSAMAX) 70 mg tabletIndications :Post-Menopausal Osteoporosis Take 1 tablet (70 mg total) by mouth every 7 days Saturday 2 Active biotin 10,000 mcg capsuleIndication s:Biotin Deficiency Take 1 capsule (10,000 mcg total) by mouth every morning Active potassium citrate 99 mg capsuleIndication s:supplement Take 1 capsule by mouth every morning Active memantine XR (NAMENDA XR) 28 mg capsule,sprinkle, ER 24hrIndications:M oderate to Severe Alzheimer's Type Dementia Take 1 capsule (28 mg total) by mouth every morning 4 Active sertraline (ZOLOFT) 50 mg tabletIndications :Anxiety with Depression Take 1 tablet (50 mg total) by mouth nightly 4 Active senna-docusate (PERICOLACE) 8.6-50 mgIndications:con stipation Take 2 tablets by mouth 2 (two) times a day 60 tablet 4 Active LORazepam (Ativan) 0.5 mg tablet Take 1 tablet (0.5 mg total) by mouth every 6 (six) hours as needed 4 Active Active Problems Problem Noted Date Diagnosed Date Painful orthopaedic hardware 04/07/2024 Closed fracture of shaft of right humerus 2023 H/O syncope 12/06/2022 PAT (paroxysmal atrial tachycardia) 12/06/2022 Sinus node dysfunction 08/01/2022 Complete heart block 08/01/2022 Cardiac pacemaker in situ 06/28/2022 Overview (07/04/2022): Medtronic Analilia Dual Pacemaker. Dx; CHB, Syncope, PAF. DOI 06/28/2022-[facility]. [place]. [facility]link remote monitoring. Loop recorder was [...] Encounters Date Type Department Care Team Description 02/24/2025 7:45 AM CDT Ancillary Procedure [facility] [address] [place] [address] [place] [id number] H/O syncope (Primary Dx); Cardiac pacemaker in situ; Complete heart block (HCC); PAT (paroxysmal atrial tachycardia) 02/10/2025 11:30 AM CDT Office Visit [facility] at [address] [place] [address] Jaciel Murray MD Mixed diabetic hyperlipidemia associated with type 2 diabetes mellitus (HCC) (Primary Dx); Hypertension associated with diabetes (HCC); Cardiac pacemaker in situ; Sinus node dysfunction (HCC); PAT (paroxysmal atrial tachycardia); H/O syncope from Last 3 Months Surgical History Surgery Date Site/Laterality Comments HYSTERECTOMY TONSILLECTOMY AND ADENOIDECTOMY WISDOM TOOTH EXTRACTION Medical History Medical History Date Comments Diabetes mellitus Syncope Hyperlipidemia Back pain Osteopenia after menopause [...] on file Legal Sex Female 6:05 PM BUSINESS INTELLIGENCE DEVELOPER Gender Identity Not on file Sexual Orientation Not on file Last Filed Vital Signs Vital Sign Reading Time Taken Comments Blood Pressure 112/60 02/10/2025 11:57 AM CDT Pulse 85 02/10/2025 11:57 AM CDT Temperature 36.6 C (97.9 F) 04/10/2024 8:20 AM BUSINESS INTELLIGENCE DEVELOPER Respiratory Rate 16 04/10/2024 8:20 AM BUSINESS INTELLIGENCE DEVELOPER Oxygen Saturation 96% 02/10/2025 11:57 AM CDT Inhaled Oxygen Concentration - - Weight 40.8 kg (90 lb) 02/10/2025 11:57 AM CDT Height 160 cm (5' 3) 02/10/2025 11:57 AM CDT Body Mass Index 15.94 02/10/2025 11:57 AM CDT Plan of Treatment Health Maintenance Due Date Last Done Comments Albumin Creatinine Ratio, Urine 1944 Depression Screening 1944 Osteoporosis Screening-Bone Density Scan 1944 Dilated Eye Exam 1944 Foot Exam 1944 Hepatitis B Screening 1962 Zoster Vaccine (1 of 2) 1994 Well Visit 65+ 2009 DTaP/Tdap/Td Vaccine (1 - Tdap) 07/28/2016 07/27/2016, 04/28/2007, 02/06/1996 Hemoglobin A1C 10/04/2024 04/06/2024 Covid-19 Vaccine (4 - 2024-2 6 season) 2025 03/06/2021, 08/07/2020, 07/17/2020 Influenza Vaccine (#1) 2025 , 02/15/2020, 03/02/2019, Additional history exists Lipid Panel 04/08/2025 04/08/2024, 06/20, 03/08/2022 eGFR 04/08/2025 04/08/2024, 03/20, 04/22/2023 Fall Risk Assessment 04/10/2025 04/10/2024 Pneumococcal vaccine 65+ Completed 015, 05/04/2015, 04/17/2010 Medical Devices Implanted Type Area Chemistry Intern Device Identifier Shelf Expiration Date Model / Serial / Lot Pacemaker- [id number] Implanted:Qty: 1 on 06/28/2022 Pacemaker Left: Chest Wall Medtronic Synthes 3.5mm 2.9mm 24mm Self Tap Lock Stardrive Conical Head Pelvis T15 212.108 - [id number] Implanted:Qty: 2 on 04/07/2024 by Elisabeth Mg MD at [facility] Right: Humerus Synthes 212.108 / / Synthes 3.5mm 6mm 26mm 2.5mm Self Tap Small Hexagonal Socket Low Profile 204.826 - [id number] Implanted:Qty: 2 on 04/07/2024 by Elisabeth Mg MD at [facility] Right: Humerus Synthes 204.826 / / Synthes 3.5mm 2.9mm 22mm Self Tap Lock Stardrive Conical Head T15 Full 212.107 - [id number] Implanted:Qty: 1 on 04/07/2024 by Elisabeth Mg MD at [facility] Right: Humerus Synthes 212.107 / / Synthes 3.5mm 2.9mm 28mm Self Tap Lock Stardrive Conical Head T15 Full 212.110 - [id number] Implanted:Qty: 1 on 04/07/2024 by Elisabeth Mg MD at [facility] Right: Humerus Synthes 212.110 / / Synthes 3.5mm 2.9mm 46mm Self Tap Lock Stardrive Conical Head T15 Full 212.136 - [id number] Implanted:Qty: 2 on 04/07/2024 by Elisabeth Mg MD at [facility] Right: Humerus Synthes I 212.136 / / Synthes 3.5mm 2.9mm 42mm Self Tap Lock Stardrive Conical Head Full Thread 212.118 - [id number] Implanted:Qty: 2 on 04/07/2024 by Elisabeth Mg MD at [facility] Right: Humerus Synthes I 212.118 / / Synthes 2.7mm 5mm 24mm 2.5mm Self Tap Spherical Head Small Hexagonal 202.824 - [id number] Implanted:Qty: 2 on 04/07/2024 by Elisabeth Mg MD at [facility] Right: Humerus Synthes 202.824 / / Synthes 2.7mm 5mm 22mm 2.5mm Self Tap Spherical Head Small Hexagonal 202.822 - [id number] Implanted:Qty: 1 on 04/07/2024 by Elisabeth Mg MD at [facility] Right: Humerus Synthes 202.822 / / Synthes Lcp Combi Philos Long [id number] 8 Hole Shaft Lock Compression 241.921 - [id number] Implanted:Qty: 1 on 04/07/2024 by Elisabeth Mg MD at [facility] Right: Humerus Synthes I 241.921 / / Synthes 3.5mm 6mm 24mm 2.5mm Self Tap Small Hexagonal Socket Low Profile 204.824 - [id number] Implanted:Qty: 2 on 04/07/2024 by Elisabeth Mg MD at [facility] Right: Humerus Synthes 204.824 / / Synthes 3.5mm 2.9mm 26mm Self Tap Lock Stardrive Conical Head T15 Full 212.109 - [id number] Implanted:Qty: 2 on 04/07/2024 by Elisabeth Mg MD at [facility] Right: Humerus Synthes 212.109 / / Synthes 3.5mm 2.9mm 48mm Self Tap Lock Fix Angle Low Profile Pelvis Full 212.120 - [id number] Implanted:Qty: 1 on 04/07/2024 by Elisabeth Mg MD at [facility] Right: Humerus Synthes I 212.120 / / Synthes Lcp 12mm [id number] .7mm 7 Hole Collar 1/3 Tubular Plate Bone 241.371 - [id number] Implanted:Qty: 1 on 04/07/2024 by Elisabeth Mg MD at [facility] Right: Humerus Synthes 241.371 / / Synthes 3.5mm 6mm 22mm 2.5mm Self Tap Small Hexagonal Socket Low Profile 204.822 - [id number] Implanted:Qty: 2 on 04/07/2024 by Elisabeth Mg MD at [facility] Right: Humerus Synthes I 204.822 / / Procedures Procedure Name Priority Date/Time Associated Diagnosis Comments DEVICE CHECK - REMOTE Routine 02/24/2025 3:08 PM CDT Cardiac pacemaker in situ Complete heart block (HCC) PAT (paroxysmal atrial tachycardia) EGFR STAT 04/08/2024 7:11 AM BUSINESS INTELLIGENCE DEVELOPER LIPID PANEL STAT 04/08/2024 7:11 AM BUSINESS INTELLIGENCE DEVELOPER POCT HEMOGLOBIN A1C Routine 04/06/2024 1 0:08 AM BUSINESS INTELLIGENCE DEVELOPER from Last 3 Months or Most Recently Relevant to Health Maintenance Results * DEVICE CHECK - REMOTE (02/24/2025 3:08 PM CDT) Anatomical Region Laterality Modality Other Narrative 03/04/2025 9:35 AM CDT Medtronic Analilia Dual Pacemaker. Dx; CHB, Syncope, PAF. [facility] [place]. [facility]link remote monitoring. Loop recorder was explanted. Routine DDD Pacemaker Remote. Transmission attached. Battery status: 3.03 V , 12.5 years remaining battery life to VIN. Stable lead impedances, pacing and sensing thresholds. Presenting rhythm: /VS AP-0.2%, [employer]-< 0.1% No AT/AF episodes noted. 6 Ventricular high rate episodes detected, IEGM demonstrates 6 episodes of SVT with the longest duration being 3 minutes and 59 seconds,. Medications: No anticoagulation or cardiac meds See scanned report. Office pacemaker follow up: 08/04/25 [facility] remote f/u 06/02/25. Turner Landrum, RN us [facility] Franki Guadalupe MD CV CARDIAC SERVICES PRO CEDURES Final Result * eGFR (04/08/2024 7:11 AM BUSINESS INTELLIGENCE DEVELOPER) eGFR 90 >=60 mL/min/1. 73 m2 Comment: [...] last reviewed 2021. Blood 04/08/2024 7:11 AM BUSINESS INTELLIGENCE DEVELOPER 04/08/2024 7:21 AM BUSINESS INTELLIGENCE DEVELOPER us Elisabeth Mg MD LAB BLOOD ORDERABL ES Final Result [facility] [place] [address] * (ABNORMAL) Lipid panel (04/08/2024 7:11 AM BUSINESS INTELLIGENCE DEVELOPER) Cholesterol 93 30 - 199 mg/dL Comment: [...] on 2018. Triglycerides 80 <=149 mg/dL [facility] Comment: Interpretive Data Ages < or = [...] on 2018. HDL 39(L) >=40 mg/dL [facility] Comment: Interpretive Data Ages < or = [...] on 2024. Non-HDL Cholesterol 54 mg/dL [facility] Comment: Interpretive Data Ages < or = [...] 2 [facility] Blood 04/08/2024 7:11 AM BUSINESS INTELLIGENCE DEVELOPER 04/08/2024 7:21 AM BUSINESS INTELLIGENCE DEVELOPER Elisabeth Mg MD LAB BLOOD ORDERABL ES Final Result [facility] [place] [address] * POCT hemoglobin A1c (04/06/2024 10:08 AM BUSINESS INTELLIGENCE DEVELOPER) Hgb A1C, POC 5.5 4.0 - 5.6 % Est Average Gluc POC 111 mg/dL [facility] Comment: The ADA recommends reporting an estimated Average Glucose (eAG) with all Hemoglobin A1c results using the equation derived from a study of 507 normal and diabetic adults. Minority populations were underrepresented and children were not included. (Diabetes Care 31:1397-4084, 2008). The eAG is not equivalent to a fasting glucose. Blood 04/06/2024 10:0 8 AM BUSINESS INTELLIGENCE DEVELOPER 04/06/2024 10:08 AM BUSINESS INTELLIGENCE DEVELOPER Elisabeth Mg MD POINT OF CARE TEST ORDERABLES Final Result [facility] [place] [address] from Last 3 Months or Most Recently Relevant to Health Maintenance Insurance MEDICARE [facility] MEDICARE MEDICARE [facility] Advance Directives For more information, please contact: [phone] * Full Code (Latest Code Status on File) Date Activated Date Inactivated Comments 04/07/2024 5:54 PM 04/10/2024 6:36 PM Care Teams Manager Transit Relationship Specialty Start Date End Date Candy August MD PCP - General Family Medicine 01/30/22
--- OUTSIDE RECORDS SUMMARY | 2025-03-23 14:53 | XMS_ITS | Clinical Summary ---
Author Organization [facility] Address [address] [place] [id number] Care Team Providers Care Supervisor Cooler Service Name Role Phone Candy August MD Primary Care Provider [phone] Social History Tobacco Use Types Packs/Day Years [...] this topic Medical Devices Implanted Type Area Automotive Technology Instructor Device Identifier Shelf Expiration Date Model / Serial / Lot Ra Lead-06/28/2022 Implanted:Qty: 1 on 06/28/2022 by Kelsie Ulrich MD Lead Implant Right: Atrium MEDTRONIC CARDIAC RHYTHM AND HEART FAILURE - DIV M 5076-45 / [id number] / Rv Lead-06/28/2022 Implanted:Qty: 1 on 06/28/2022 by Kelsie Ulrich MD Lead Implant Right: Ventricle MEDTRONIC CARDIAC RHYTHM AND HEART FAILURE - DIV M 5076-52 / [id number] / Pacemaker-2022 Implanted:Qty: 1 on 06/28/2022 by Kelsie Ulrich MD Pacemaker Chest MEDTRONIC CARDIAC RHYTHM AND HEART FAILURE - DIV M [id number] / [id number] / Description:MRI Conditional under following conditions: [...] (4W/kg or less whole body) Insurance MEDICARE [facility] Care Teams Supervisor Cooler Service Relationship Specialty Start Date End Date Candy August MD [address] [place] [address] PCP - General FAMILY PRACTICE 06/05/23
--- OUTSIDE RECORDS SUMMARY | 2025-03-23 14:53 | XMS_ITS | Clinical Summary ---
Author Organization [facility] Address [address] [place] [address] Care Team Providers Care Urologic Surgeon Name Role Phone Unknown, Provider Primary Care Provider Unavaila ble Source Comments [facility],non-owned Affiliates and Associated Physician Practices is amultiple site organization consisting of ambulatory clinics and hospital sitesin [place], [place], [place] and [place]. This disclosure is being madepursuant to the Care Everywhere program and may not contain all information available regarding this patient. 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 Gender Identity Not on file Sexual Orientation [...] this topic Medical Devices Implanted Type Area Asphalt Roller Operator Device Identifier Shelf Expiration Date Model / Serial / Lot Ra Lead Medtronic Inc 5076-45 / [id number] / Rv Lead Medtronic Inc 5076-52 / [id number] / Pacemaker- 3 Implanted: 023 (Quantity not on file) Medtronic Inc [id number] / [id number] / Description:[id number] Anal[address] MARTIN Jaramillo- MRI conditional to 1.5T or 3T-LT 07/17/23 RA 5076-45 RV 5076-52 Insurance MEDICARE [facility] [place] [address] Care Teams Urologic Surgeon Relationship Specialty Start Date End Date Unknown, Provider PCP - General 08/14/23
--- OUTSIDE RECORDS SUMMARY | 2025-03-23 14:53 | XMS_ITS | Patient Health Record ---
Author Organization [facility] Address [address] [place], [place] [id number] Care Team Providers Care Gym Attendant Name Role Phone LIZETTE Vann Unavailable [phone] Reason For Referral No Information Medications Medication SIG (Take, Route, Frequency, Duration) Notes Start Date End Date Status hydroCHLOROthiazide 25 MG Oral Tablet ORAL hydrochlorothiazide 25 MG Or al TabletOriginal Medicationhydrochlorothiazide 25 MG Oral Tablet *Reorder from [employer] for eRx and Interaction Alerts* 015 Active Lisinopril 40 MG Oral Tablet ORAL lisinopril 40 MG Oral TabletOriginal Medicationlisinopril 40 MG Oral Tablet *Reorder from [employer] for eRx and Interaction Alerts* 015 Active naftifine hydrochloride 20 MG/ML Topical Cream [Naftin] CUTANEOUS naftifine hydrochloride 20 MG/ML Topical Cream [Naftin]Original Medicationnaftifine hydrochloride 20 MG/ML Topical Cream [Naftin] *Reorder from [employer] for eRx and Interaction Alerts* 015 Active Modified 24 HR metformin hydrochloride 500 MG Extended Release Oral Tablet ORAL Modified 24 HR metformin hydrochloride 500 MG Extended Release Oral TabletOriginal MedicationModified 24 HR metformin hydrochloride 500 MG Extended Release Oral Tablet *Reorder from [employer] for eRx and Interac 015 Active ranitidine 150 MG Oral Tablet ORAL ranitidine 150 MG Oral TabletOriginal Medicationranitidine 150 MG Oral Tablet *Reorder from [employer] for eRx and Interaction Alerts* 015 Active Social History Social History Additional Details Category Social Info Options Details Migrated Social History Migrated Social History Smoking Status : Never smoked , History of tobacco use : Plan Of Treatment No Information Insurance Providers Payer Name Payer Address Payer Phone Subscriber Number Group Number Insured Name Patient Relationship to Insured Coverage Start Date Coverage End Date Medicare Part B [facility] [address] [place] [phone] [id number] MIRTA CORMIER Self - patient is the insured [place] [employer] [address] [employer] [place] [address] [id number] MIRTA CORMIER Self - patient is the insured
[2025-03-23 15:28] VITALS: BP 123/66; PULSE 87; RESP 15; O2SAT 97
== END 2025-03-23 15:29 | disposition home or self-care (01) ==
PROVIDERS: Emergency Provider Physician Assistant; PCP Family Medicine Adolescent Medicine
DX: S42.012A Anterior displaced fracture of sternal end of left clavicle, initial encounter for closed fracture (principal); G30.9 Alzheimer's disease, unspecified; F02.80 Dementia in other diseases classified elsewhere, unspecified severity, without behavioral disturbance, psychotic disturbance, mood disturbance, and anxiety; E78.5 Hyperlipidemia, unspecified; E11.9 Type 2 diabetes mellitus without complications; M85.80 Other specified disorders of bone density and structure, unspecified site; Z95.0 Presence of cardiac pacemaker; Z90.710 Acquired absence of both cervix and uterus; Z79.84 Long term (current) use of oral hypoglycemic drugs; Z79.899 Other long term (current) drug therapy; W01.198A Fall on same level from slipping, tripping and stumbling with subsequent striking against other object, initial encounter
CPT/HCPCS: 70450; 71046; 71100; 72125; 73000; 73030; 99284; A4565; A9270

== ENCOUNTER 2025-04-12 11:19 | Outpatient (CLI) | payer MEDICARE, OTHER, SELFPAY ==
--- NOTE | ~2025-04-12 | DEXA_ITS ---
Bone Density Report Name: MIRTA CORMIER Age: 79 Sex: Female Ethnicity: White Date of : 1945 Indication: postmenopausal; screening for osteoporosis; height loss; prior fracture; hysterectomy; Referring Provider: Trixie Lindsey Study: Bone densitometry was performed. Exam Date: April 12, 2025 Accession number: [id number] Bone Density: Region BMD T-score Z-score Classification AP Spine(L1-L4) 0.808 -2.2 0.5 Osteopenia Femoral Neck (Left) 0.660 -1.7 0.6 Osteopenia Total Hip (Left) 0.719 -1.8 0.3 Osteopenia Femoral Neck (Right) 0.625 -2.0 0.3 Osteopenia Total Hip (Right) 0.648 -2.4 -0.3 Osteopenia Femoral Neck Mean 0.642 -1.9 0.5 Osteopenia Total Hip Mean 0.683 -2.1 0.0 Osteopenia World Health Organization criteria for BMD impression classify patients as: Normal (T-score at or above -1.0), Osteopenia (T-score between -1.0 and -2.5), or Osteoporosis (T-score at or below -2.5). 10-year Fracture Risk: FRAX not reported because: Prior hip or vertebral fracture Treated for osteoporosis Clinical Information Provided by Patient: Have had a previous hip or vertebral fracture Has had a low trauma fracture Is being treated for osteoporosis Has used the following medications: Fosamax (i.e. alendronate), Vitamin D, Calcium Has the following medical conditions: Hysterectomy Patient maximum height was 68 Menopause Age: 49 No regular weight bearing exercise Onset of menses at age 12 Number of children 2 Impression: The patient has low bone mass, based on the Right Total Hip T-score. The patient has risk factors, including: previous fracture. Discussion: It is important to ask patients whether they are taking their medications and to encourage continued and appropriate compliance with their osteoporosis therapies to reduce fracture risk. It is also important to review their risk factors and encourage appropriate calcium and vitamin D intakes, exercise, fall prevention and other lifestyle measures. Follow-Up: Consider a repeat BMD and Vertebral Fracture Assessment (VFA) exam in 2 years or sooner if medically necessary, to reassess this patient's status. Reported by: SKYE on 04/12/2025 11:44:00 AM. Reviewed, dictated and finalized at location A.
--- OUTSIDE RECORDS SUMMARY | 2025-04-12 13:31 | XMS_ITS | Clinical Summary ---
Author Organization [facility] [address] Address [address] [place] [address] Care Team Providers Care Artillery Maintenance Supervisor Name Role Phone Candy August MD Primary Care Provider [phone] Allergies Active Allergy Reactions Criticality Noted Date Comments Codeine Vomiting Low 03/08/2022 Ddtcbfb-Mhf-Bhl Reductase Inhibitors Diarrhea Low 01/03/2024 Medications metFORMIN [...] Description 02/24/2025 7:45 AM CDT Ancillary Procedure [facility] [address] [place] [address] [place] [id number] H/O syncope (Primary Dx); Cardiac pacemaker in situ; Complete heart block (HCC); PAT (paroxysmal atrial tachycardia) 02/10/2025 11:30 AM CDT Office Visit [facility] at [address] [place] [address] Jaciel Murray MD Mixed diabetic [...] on file Legal Sex Female 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 Gender Identity Not on file Sexual Orientation Not on file Last Filed Vital Signs Vital Sign Reading Time Taken Comments Blood Pressure 112/60 02/10/2025 11:57 AM CDT Pulse 85 02/10/2025 11:57 AM CDT Temperature 36.6 C (97.9 F) 04/10/2024 8:20 AM EXECUTIVE CASINO HOST Respiratory Rate 16 04/10/2024 8:20 AM EXECUTIVE CASINO HOST Oxygen Saturation 96% 02/10/2025 11:57 AM CDT [...] 05/04/2015, 04/17/2010 Medical Devices Implanted Type Area Salesperson Toy Trains And Accessories Device Identifier Shelf Expiration Date Model / Serial / Lot Pacemaker- 023 Implanted:Qty: 1 on 06/28/2022 Pacemaker Left: Chest Wall Medtronic Synthes 3.5mm 2.9mm 24mm Self Tap Lock Stardrive Conical Head Pelvis T15 212.108 - [id number] Implanted:Qty: 2 on 04/07/2024 by Elisabeth Mg MD at [facility] Right: Humerus Synthes 212.108 / / Synthes 3.5mm 6mm 26mm 2.5mm Self Tap Small Hexagonal Socket Low Profile 204.826 - [id number] Implanted:Qty: 2 on 04/07/2024 by Elisabeth Mg MD at [facility] Right: Humerus Synthes 204.826 / / Synthes 3.5mm 2.9mm 22mm Self Tap Lock Stardrive Conical Head T15 Full 212.107 - [id number] Implanted:Qty: 1 on 04/07/2024 by Elisabeth Mg MD at [facility] Right: Humerus Synthes 212.107 / / Synthes 3.5mm 2.9mm 28mm Self Tap Lock Stardrive Conical Head T15 Full 212.110 - [id number] Implanted:Qty: 1 on 04/07/2024 by Elisabeth Mg MD at [facility] Right: Humerus Synthes 212.110 / / Synthes 3.5mm 2.9mm 46mm Self Tap Lock Stardrive Conical Head T15 Full 212.136 - [id number] Implanted:Qty: 2 on 04/07/2024 by Elisabeth Mg MD at [facility] Right: Humerus Synthes I 212.136 / / Synthes 3.5mm 2.9mm 42mm Self Tap Lock St[employer]rive Conical Head Full Thread 212.118 - [id number] Implanted:Qty: 2 on 04/07/2024 by Elisabeth Mg MD at [facility] Right: Humerus Synthes I 212.118 / / Synthes 2.7mm 5mm 24mm 2.5mm Self Tap Spherical Head Small Hexagonal 202.824 - [id number] Implanted:Qty: 2 on 04/07/2024 by Elisabeth Mg MD at [facility] Right: Humerus Synthes 202.824 / / Synthes 2.7mm 5mm 22mm 2.5mm Self Tap Spherical Head Small Hexagonal 202.822 - [id number] Implanted:Qty: 1 on 04/07/2024 by Elisabeth Mg MD at [facility] Right: Humerus Synthes 202.822 / / Synthes Lcp Combi Philos Long [id number] 8 Hole Shaft Lock Compression 241.921 - [id number] Implanted:Qty: 1 on 04/07/2024 by Elisabeth Mg MD at [facility] Right: Humerus Synthes I 241.921 / / Synthes 3.5mm 6mm 24mm 2.5mm Self Tap Small Hexagonal Socket Low Profile 204.824 - [id number] Implanted:Qty: 2 on 04/07/2024 by Elisabeth Mg MD at [facility] Right: Humerus Synthes 204.824 / / Synthes 3.5mm 2.9mm 26mm Self Tap Lock Stardrive Conical Head T15 Full 212.109 - [id number] Implanted:Qty: 2 on 04/07/2024 by Elisabeth Mg MD at [facility] Right: Humerus Synthes 212.109 / / Synthes 3.5mm 2.9mm 48mm Self Tap Lock Fix Angle Low Profile Pelvis Full 212.120 - [id number] Implanted:Qty: 1 on 04/07/2024 by Elisabeth Mg MD at [facility] Right: Humerus Synthes I 212.120 / / Synthes Lcp 12mm [id number] .7mm 7 Hole Collar 1/3 Tubular Plate Bone 241.371 - [id number] Implanted:Qty: 1 on 04/07/2024 by Elisabeth Mg MD at [facility] Right: Humerus Synthes 241.371 / / Synthes 3.5mm 6mm 22mm 2.5mm Self Tap Small Hexagonal Socket Low Profile 204.822 - [id number] Implanted:Qty: 2 on 04/07/2024 by Elisabeth Mg MD at [facility] Right: Humerus Synthes I 204.822 / / Procedures Procedure Name Priority Date/Time Associated Diagnosis Comments DEVICE CHECK - REMOTE Routine 02/24/2025 3:08 PM CDT Cardiac pacemaker in situ Complete heart block (HCC) PAT (paroxysmal atrial tachycardia) EGFR STAT 04/08/2024 7:11 AM EXECUTIVE CASINO HOST LIPID PANEL STAT 04/08/2024 7:11 AM EXECUTIVE CASINO HOST POCT HEMOGLOBIN A1C Routine 04/06/2024 1 0:08 AM EXECUTIVE CASINO HOST from Last 3 Months or Most Recently Relevant to Health Maintenance Results * DEVICE CHECK - REMOTE (02/24/2025 3:08 PM CDT) Anatomical Region Laterality Modality Other Narrative 03/04/2025 9:35 AM CDT Medtronic Analilia Dual Pacemaker. Dx; CHB, Syncope, PAF. [facility]. [facility] remote monitoring. Loop recorder was explanted. Routine DDD Pacemaker Remote. Transmission attached. Battery status: 3.03 V , 12.5 years remaining battery life to VIN. Stable lead impedances, pacing and sensing thresholds. Presenting rhythm: /VS AP-0.2%, ELECTRIC POWER LINE EXAMINER-< 0.1% No AT/AF episodes noted. 6 Ventricular high rate episodes detected, IEGM demonstrates 6 episodes of SVT with the longest duration being 3 minutes and 59 seconds,. Medications: No anticoagulation or cardiac meds See scanned report. Office pacemaker follow up: 08/04/25 [facility] remote f/u 06/02/25. Turner Landrum, RN us [facility] Franki Guadalupe MD CV CARDIAC SERVICES PRO CEDURES Final Result * eGFR (04/08/2024 7:11 AM EXECUTIVE CASINO HOST) eGFR 90 >=60 mL/min/1. 73 m2 Comment: [...] last reviewed 2021. Blood 04/08/2024 7:11 AM EXECUTIVE CASINO HOST 04/08/2024 7:21 AM EXECUTIVE CASINO HOST us Elisabeth Mg MD LAB BLOOD ORDERABL ES Final Result [facility] Department [place] [address] * (ABNORMAL) Lipid panel (04/08/2024 7:11 AM EXECUTIVE CASINO HOST) Cholesterol 93 30 - 199 mg/dL Comment: [...] on 2018. Triglycerides 80 <=149 mg/dL [facility] Comment: Interpretive Data Ages < or [...] on 2018. HDL 39(L) >=40 mg/dL [facility] Comment: Interpretive Data Ages < or [...] on 2024. Non-HDL Cholesterol 54 mg/dL [facility] Comment: Interpretive Data Ages < or [...] 2 [facility] Blood 04/08/2024 7:11 AM EXECUTIVE CASINO HOST 04/08/2024 7:21 AM EXECUTIVE CASINO HOST Elisabeth Mg MD LAB BLOOD ORDERABL ES Final Result [facility] Department [place] [address] * POCT hemoglobin A1c (04/06/2024 10:08 AM EXECUTIVE CASINO HOST) Hgb A1C, POC 5.5 4.0 - 5.6 % Est Average Gluc POC 111 mg/dL [facility] Comment: The ADA recommends reporting an estimated Average Glucose (eAG) with all Hemoglobin A1c results using the equation derived from a study of 507 normal and diabetic adults. Minority populations were underrepresented and children were not included. (Diabetes Care 31:0057-5611, 2008). The eAG is not equivalent to a fasting glucose. Blood 04/06/2024 10:0 8 AM EXECUTIVE CASINO HOST 04/06/2024 10:08 AM EXECUTIVE CASINO HOST Elisabeth Mg MD POINT OF CARE TEST ORDERABLES Final Result [facility] Department [place] [address] from Last 3 Months or Most Recently Relevant to Health Maintenance Insurance MEDIC[facility] MEDICARE MEDICARE [facility] Advance Directives For more information, please contact: [phone] * Full Code (Latest Code Status on File) Date Activated Date Inactivated Comments 04/07/2024 5:54 PM 04/10/2024 6:36 PM Care Teams Artillery Maintenance Supervisor Relationship Specialty Start Date End Date Candy August MD PCP - General Family Medicine 01/30/22
--- OUTSIDE RECORDS SUMMARY | 2025-04-12 13:31 | XMS_ITS | Clinical Summary ---
Author Organization [facility] Address [address] [place] [address] Care Team Providers Care Coremaker Experimental Name Role Phone Candy August MD Primary Care Provider [phone] Social History Tobacco Use Types Packs/Day Years [...] this topic Medical Devices Implanted Type Area Event Promotions Coordinator Device Identifier Shelf Expiration Date Model / Serial / Lot Ra Lead-06/28/2022 Implanted:Qty: 1 on 06/28/2022 by Kelsie Ulrich MD Lead Implant Right: Atrium MEDTRONIC CARDIAC RHYTHM AND HEART FAILURE - DIV M 5076-45 / [id number] / Rv Lead-06/28/2022 Implanted:Qty: 1 on 06/28/2022 by Kelsie Ulrich MD Lead Implant Right: Ventricle MEDTRONIC CARDIAC RHYTHM AND HEART FAILURE - DIV M 5076-52 / [id number] / Pacemaker-2022 Implanted:Qty: 1 on 06/28/2022 by Kelsie Ulrich MD Pacemaker Chest [employer]IC CARDIAC RHYTHM AND HEART FAILURE - DIV M [id number] / [id number] / Description:MRI Conditional under following conditions: [...] (4W/kg or less whole body) Insurance MEDICARE [facility] Care Teams Coremaker Experimental Relationship Specialty Start Date End Date Candy August MD [address] [place] [address] PCP - General FAMILY PRACTICE 06/05/23
--- OUTSIDE RECORDS SUMMARY | 2025-04-12 13:31 | XMS_ITS | Clinical Summary ---
Author Organization [facility] Address [address] [place] [address] Care Team Providers Care Senior Center Director Name Role Phone Unknown, Provider Primary Care Provider Unavaila ble Source Comments [facility],non-owned Affiliates and Associated Physician Practices is amultiple site organization consisting of ambulatory clinics and hospital sitesin [place], [place], [place] and [place]. This disclosure is being madepursuant to the Care Everywhere program and may not contain all information available regarding this patient. 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 Gender Identity Not on file Sexual Orientation [...] DEPRESSION SCREENING 05/20/2024 COVID-19 VACCINE (1 - 2024-2 6 season) 2025 INFLUENZA VACCINE (#1) 2025 HEPATITIS [...] this topic Medical Devices Implanted Type Area Talent Manager Device Identifier Shelf Expiration Date Model / Serial / Lot Ra Lead Medtronic Inc 5076-45 / [id number] / Rv Lead Medtronic Inc 5076-52 / [id number] / Pacemaker- 3 Implanted: 023 (Quantity not on file) Medtronic Inc [id number] / [id number] / Description:[id number] Correll XT DR MARTIN Jaramillo- MRI conditional to 1.5T or 3T-LT 07/17/23 RA 5076-45 RV 5076-52 Insurance MEDICARE [facility] [address] Care Teams Senior Center Director Relationship Specialty Start Date End Date Unknown, Provider PCP - General 08/14/23
== END 2025-04-12 11:20 | disposition home or self-care (01) ==
LOC: CHSIMG 11:21
PROVIDERS: PCP Family Medicine; Visit Provider Internal Medicine Endocrinology, Diabetes & Metabolism
DX: Z78.0 Asymptomatic menopausal state (principal); M85.89 Other specified disorders of bone density and structure, multiple sites
CPT/HCPCS: 77080